=== PATIENT | female | born 1950 | race Caucasian/White ===

== ENCOUNTER 2018-05-13 15:56 | Inpatient (IN) | payer MEDICARE, BC ==
[2018-05-13] MEDS ORDERED: GLUCOSE GEL 15 GRAM TUBE BUCCAL (17:30)
[2018-05-13] MEDS ORDERED: DEXTROSE 50% 50 ML SYRINGE IV ×2 (17:30)
[2018-05-13] MEDS ORDERED: GLUCAGON 1 MG INJ IM (17:30)
[2018-05-13] MEDS ORDERED: GLUCOSE GEL 15 GRAM TUBE PO ×2 (17:30)
[2018-05-13] MEDS: INSULIN ASPART [NOVOLOG] 3 ML PEN SC ×3 (18:11→21:00)
[2018-05-13] MEDS: HYDROmorphONE 0.5 MG/0.5 ML SYG IV (19:45)
[2018-05-13] MEDS: ONDANSETRON 4 MG INJ IV (19:45)
[2018-05-13 20:16] LABS: ALANINE AMINOTRANSFERASE 23 IU/L (13-69); ALKALINE PHOSPHATASE 53 IU/L (42-121); ANION GAP 9 (8-16); ASPARTATE AMINO TRANSFERASE 21 IU/L (15-46); BILIRUBIN,INDIRECT 0.8 mg/dl (0-1.1); BILIRUBIN,TOTAL 0.8 mg/dl (0.2-1.3); BLOOD UREA NITROGEN 14 mg/dl (7-20); CALCIUM 8.2 mg/dl (8.4-10.2); CARBON DIOXIDE 26 mmol/L (21-31); CHLORIDE 109 mmol/L (97-110); CREATININE 0.85 mg/dl (0.44-1.00); GLUCOSE 130 mg/dl (70-220); SODIUM 140 mmol/L (135-144)
[2018-05-13 20:19] LABS: HEMOGLOBIN A1C 8.2 % (0-5.9)
[2018-05-13] MEDS: ATORVASTATIN 40 MG TAB PO (21:17)
[2018-05-14] MEDS: ZOLPIDEM 5 MG TAB PO (00:29)
[2018-05-14] MEDS: ACCU-CHEK XX (01:47)
[2018-05-14 06:33] LABS: WHITE BLOOD COUNT 8.8 10^3/ul (4.8-10.8)
[2018-05-14 06:33] LABS: ADD MAN DIFF? NO; BASOPHILS % 0.5 % (0.0-2.0); EOSINOPHILS # 0.6 10^3/ul (0.0-0.5); EOSINOPHILS % 6.5 % (0.0-7.0); HEMATOCRIT 31.1 % (37.0-47.0); HEMOGLOBIN 9.7 g/dl (12.0-16.0); LYMPHOCYTES # 1.7 10^3/ul (0.8-2.9); LYMPHOCYTES % 18.9 % (15.0-51.0); MEAN CORPUSCULAR HEMOGLOBIN 29.9 pg (29.0-33.0); MEAN CORPUSCULAR HGB CONC 31.2 g/dl (32.0-37.0); MEAN PLATELET VOLUME 9.6 fl (7.4-10.4); MONOCYTES % 11.5 % (0.0-11.0); NEUTROPHIL # 5.4 10^3/ul (1.6-7.5); NEUTROPHILS % 62.1 % (39.0-77.0); PLATELET COUNT 265 10^3/UL (140-415); RED BLOOD COUNT 3.24 10^6/ul (4.20-5.40); RED CELL DISTRIBUTION WIDTH 13.6 % (11.5-14.5)
[2018-05-14 07:12] LABS: ANION GAP 12 (8-16); BLOOD UREA NITROGEN 18 mg/dl (7-20); CALCIUM 8.2 mg/dl (8.4-10.2); CARBON DIOXIDE 26 mmol/L (21-31); CHLORIDE 111 mmol/L (97-110); CREATININE 0.87 mg/dl (0.44-1.00); GLUCOSE 147 mg/dl (70-220); PHOSPHORUS 3.4 mg/dl (2.5-4.9); POTASSIUM 4.2 mmol/L (3.5-5.1); SODIUM 145 mmol/L (135-144)
[2018-05-14] MEDS: INSULIN GLARGINE [LANTus] (100 UNITS/ML) SYG SC ×3 (08:00→21:30)
[2018-05-14] MEDS: INSULIN ASPART [NOVOLOG] 3 ML PEN SC ×7 (08:36→21:00)
[2018-05-14] MEDS: ASPIRIN (EC) 81 MG TAB PO (08:55)
[2018-05-14] MEDS: oxyCODONE (CR) 20 MG TAB [oxyCONTIN] PO ×2 (08:57→21:23)
[2018-05-14] MEDS: DOCUSATE SODIUM 100 MG CAP PO (08:57)
[2018-05-14] MEDS: FENOFIBRATE 48 MG TAB PO (08:58)
[2018-05-14] MEDS: predniSONE 5 MG TAB PO (08:58)
[2018-05-14] MEDS: PANTOPRAZOLE (EC) 40 MG TAB PO (08:58)
[2018-05-14] MEDS: HEPARIN 5,000 UNIT/0.5 ML VIAL SC ×3 (09:00→21:27)
[2018-05-14] MEDS ORDERED: CLOPIDOGREL 75 MG TAB PO (09:00)
[2018-05-14] MEDS: POLYETHYLENE GLYCOL 17 GM PACKET PO (09:00)
[2018-05-14 12:46] LABS: CREATININE,URINE RANDOM 82.71 mg/dl (20-320)
[2018-05-14 12:46] LABS: SODIUM,URINE RANDOM 113 mmol/L (30-90)
[2018-05-14 12:57] LABS: ADD UMIC YES; UR ASCORBIC ACID NEGATIVE (NEGATIVE); UR BACTERIA MODERATE /HPF (NONE SEEN); UR BILIRUBIN (Dip) NEGATIVE (NEGATIVE); UR BLOOD (Dip) 1+ mg/dL (NEGATIVE); UR CLARITY CLOUDY (CLEAR); UR COLOR AMBER (YELLOW); UR GLUCOSE (Dip) NEGATIVE (NEGATIVE); UR KETONES (Dip) NEGATIVE (NEGATIVE); UR LEUKOCYTE ESTERASE (Dip) 3+ Leu/ul (NEGATIVE); UR NITRITE (Dip) NEGATIVE (NEGATIVE); UR RBC 15 /HPF (0-5); UR SPECIFIC GRAVITY (Dip) 1.014 (1.003-1.030); UR TOTAL PROTEIN (Dip) NEGATIVE (NEGATIVE); UR UROBILINOGEN (Dip) 2+ mg/dL (NEGATIVE); UR WBC 144 /HPF (0-5)
[2018-05-14] MEDS: ATORVASTATIN 40 MG TAB PO (21:23)
[2018-05-15] MEDS: ZOLPIDEM 5 MG TAB PO ×2 (00:20→22:30)
[2018-05-15] MEDS: D5W-0.45 NACL + KCL 20 MEQ 1,000 ML IV ×4 (00:21→20:00)
[2018-05-15] MEDS: ACCU-CHEK XX (01:36)
[2018-05-15] MEDS: HEPARIN 5,000 UNIT/0.5 ML VIAL SC ×3 (06:00→22:00)
[2018-05-15 06:52] LABS: ADD MAN DIFF? NO
[2018-05-15 06:54] LABS: WHITE BLOOD COUNT 8.4 10^3/ul (4.8-10.8)
[2018-05-15 06:54] LABS: BASOPHIL # 0.1 10^3/ul (0.0-0.1); BASOPHILS % 0.6 % (0.0-2.0); EOSINOPHILS # 0.7 10^3/ul (0.0-0.5); EOSINOPHILS % 7.9 % (0.0-7.0); HEMATOCRIT 31.4 % (37.0-47.0); LYMPHOCYTES # 1.8 10^3/ul (0.8-2.9); LYMPHOCYTES % 21.3 % (15.0-51.0); MEAN CORPUSCULAR HEMOGLOBIN 30.6 pg (29.0-33.0); MEAN CORPUSCULAR HGB CONC 31.8 g/dl (32.0-37.0); MEAN PLATELET VOLUME 9.6 fl (7.4-10.4); MONOCYTE # 0.8 10^3/ul (0.3-0.9); MONOCYTES % 9.8 % (0.0-11.0); NEUTROPHILS % 59.9 % (39.0-77.0); PLATELET COUNT 281 10^3/UL (140-415); RED BLOOD COUNT 3.27 10^6/ul (4.20-5.40); RED CELL DISTRIBUTION WIDTH 13.5 % (11.5-14.5)
[2018-05-15 07:29] LABS: ANION GAP 10 (8-16); BLOOD UREA NITROGEN 21 mg/dl (7-20); CALCIUM 8.5 mg/dl (8.4-10.2); CARBON DIOXIDE 28 mmol/L (21-31); CHLORIDE 108 mmol/L (97-110); CREATININE 0.89 mg/dl (0.44-1.00); GLUCOSE 150 mg/dl (70-220); MAGNESIUM 1.9 mg/dl (1.7-2.5); PHOSPHORUS 3.3 mg/dl (2.5-4.9); POTASSIUM 4.4 mmol/L (3.5-5.1); SODIUM 142 mmol/L (135-144)
[2018-05-15] MEDS: INSULIN ASPART [NOVOLOG] 3 ML PEN SC ×7 (08:00→21:21)
[2018-05-15] MEDS: oxyCODONE (CR) 20 MG TAB [oxyCONTIN] PO ×3 (08:53→21:12)
[2018-05-15] MEDS: POLYETHYLENE GLYCOL 17 GM PACKET PO (08:54)
[2018-05-15] MEDS: FENOFIBRATE 48 MG TAB PO (08:54)
[2018-05-15] MEDS: DOCUSATE SODIUM 100 MG CAP PO (08:54)
[2018-05-15] MEDS: PANTOPRAZOLE (EC) 40 MG TAB PO ×2 (08:54→10:02)
[2018-05-15] MEDS: predniSONE 5 MG TAB PO ×2 (08:54→10:02)
[2018-05-15] MEDS: ASPIRIN (EC) 81 MG TAB PO (08:54)
[2018-05-15] MEDS: LUBIPROSTONE 24 MCG CAP PO ×2 (08:54→21:12)
[2018-05-15 10:59] LABS: INR 0.98; PROTIME 13.1 Sec (11.9-14.9)
[2018-05-15] MEDS: HYDROCORTISONE 100 MG INJ IV ×2 (11:45→21:10)
[2018-05-15 16:17] LABS: CREATININE, RANDOM URINE 74 mg/dL (20-320); MICROALBUMIN 5.8 mg/dL; MICROALBUMIN/CREATININE RATIO 78 (<30)
[2018-05-15] MEDS: ATORVASTATIN 40 MG TAB PO (21:11)
[2018-05-15] MEDS: INSULIN GLARGINE [LANTus] (100 UNITS/ML) SYG SC (21:20)
[2018-05-16] MEDS: BISACODYL 10 MG SUPP PR (00:44)
[2018-05-16] MEDS: ACCU-CHEK XX (01:54)
[2018-05-16 05:58] LABS: ADD MAN DIFF? NO
[2018-05-16] MEDS: D5W-0.45 NACL + KCL 20 MEQ 1,000 ML IV ×2 (06:00→16:00)
[2018-05-16] MEDS: HEPARIN 5,000 UNIT/0.5 ML VIAL SC ×3 (06:00→21:39)
[2018-05-16 06:22] LABS: WHITE BLOOD COUNT 10.7 10^3/ul (4.8-10.8)
[2018-05-16 06:22] LABS: BASOPHILS % 0.3 % (0.0-2.0); EOSINOPHILS % 0.4 % (0.0-7.0); HEMATOCRIT 28.6 % (37.0-47.0); HEMOGLOBIN 9.2 g/dl (12.0-16.0); LYMPHOCYTES # 1.2 10^3/ul (0.8-2.9); LYMPHOCYTES % 11.6 % (15.0-51.0); MEAN CORPUSCULAR HGB CONC 32.2 g/dl (32.0-37.0); MEAN CORPUSCULAR VOLUME 93.2 fl (82.0-101.0); MEAN PLATELET VOLUME 9.7 fl (7.4-10.4); MONOCYTE # 0.9 10^3/ul (0.3-0.9); MONOCYTES % 8.2 % (0.0-11.0); NEUTROPHIL # 8.5 10^3/ul (1.6-7.5); PLATELET COUNT 292 10^3/UL (140-415); RED BLOOD COUNT 3.07 10^6/ul (4.20-5.40); RED CELL DISTRIBUTION WIDTH 13.2 % (11.5-14.5)
[2018-05-16] MEDS: HYDROCORTISONE 100 MG INJ IV ×3 (06:30→21:45)
[2018-05-16 06:36] LABS: INR 1.07; PT RATIO 1.1
[2018-05-16 06:39] LABS: ALANINE AMINOTRANSFERASE 26 IU/L (13-69); ALBUMIN 2.5 g/dl (3.3-4.9); ALBUMIN/GLOBULIN RATIO 0.92; ALKALINE PHOSPHATASE 51 IU/L (42-121); ANION GAP 13 (8-16); ASPARTATE AMINO TRANSFERASE 18 IU/L (15-46); BILIRUBIN,INDIRECT 0.8 mg/dl (0-1.1); BILIRUBIN,TOTAL 0.8 mg/dl (0.2-1.3); BLOOD UREA NITROGEN 19 mg/dl (7-20); CALCIUM 8.6 mg/dl (8.4-10.2); CARBON DIOXIDE 25 mmol/L (21-31); CHLORIDE 106 mmol/L (97-110); CHOLESTEROL 117 mg/dl (100-200); GLUCOSE 286 mg/dl (70-220); HDL CHOLESTEROL 29 mg/dl (33-92); LDL CHOLESTEROL,CALCULATED 64 mg/dl; POTASSIUM 4.5 mmol/L (3.5-5.1); SODIUM 139 mmol/L (135-144); TOTAL PROTEIN 5.2 g/dl (6.1-8.1); TRIGLYCERIDES 120 mg/dl (0-149)
[2018-05-16 07:04] LABS: ANION GAP 10 (8-16); BLOOD UREA NITROGEN 19 mg/dl (7-20); CALCIUM 8.6 mg/dl (8.4-10.2); CARBON DIOXIDE 24 mmol/L (21-31); CHLORIDE 106 mmol/L (97-110); CREATININE 0.76 mg/dl (0.44-1.00); GLUCOSE 294 mg/dl (70-220); MAGNESIUM 1.7 mg/dl (1.7-2.5); PHOSPHORUS 3.5 mg/dl (2.5-4.9); POTASSIUM 4.4 mmol/L (3.5-5.1); SODIUM 136 mmol/L (135-144)
[2018-05-16] MEDS ORDERED: PROPOFOL 20 ML (07:39)
[2018-05-16] MEDS ORDERED: LIDOCAINE 2% (SDV) 5 ML INJ (07:39)
[2018-05-16] MEDS: SOD CHLORIDE 0.9% 1,000 ML IV ×2 (07:41→17:09)
[2018-05-16] MEDS ORDERED: BUPIVACAINE 0.75%/DEXT (SPINAL) 2 ML INJ (07:51)
[2018-05-16] MEDS: INSULIN ASPART [NOVOLOG] 3 ML PEN SC ×8 (08:00→20:54)
[2018-05-16] MEDS ORDERED: NA PHOSPHATE/BIPHOS 133 ML ENEMA PR (08:00)
[2018-05-16] MEDS: DOCUSATE SODIUM 100 MG CAP PO (08:00)
[2018-05-16] MEDS ORDERED: MAGNESIUM HYDROXIDE 30ML CUP PO (08:00)
[2018-05-16] MEDS ORDERED: BETHANECHOL 25 MG TAB PO (08:00)
[2018-05-16] MEDS ORDERED: DIPHENHYDRAMINE 50 MG INJ IV (08:00)
[2018-05-16] MEDS ORDERED: CEFAZOLIN 1 GM/50 ML (PMX) 50 ML IVPB (08:00)
[2018-05-16] MEDS ORDERED: NALOXONE (0.4 MG/ML) INJ IV ×2 (08:00→14:00)
[2018-05-16] MEDS ORDERED: oxyCODONE 5 MG TAB PO ×3 (08:00)
[2018-05-16] MEDS ORDERED: HYDROCORTISONE 100 MG INJ (08:02)
[2018-05-16] MEDS ORDERED: EPHEDrine SULFATE 50 MG/5 ML SYG (08:23)
[2018-05-16] MEDS ORDERED: CEFAZOLIN 1 GM INJ ×3 (08:23→11:06)
[2018-05-16] MEDS: TRANEXAMIC ACID 1,000 MG in DEXTROSE 5% 100 ML IV ×2 (08:57→13:25)
[2018-05-16] MEDS: BACITRACIN 50000 UNITS INJ ×2 (08:59→13:21)
[2018-05-16] MEDS ORDERED: HYDROmorphONE 1 MG/5 ML IV SYRINGE IV (09:00)
[2018-05-16] MEDS ORDERED: EPHEDrine SULFATE 50 MG/5 ML SYG IV (09:00)
[2018-05-16] MEDS: LUBIPROSTONE 24 MCG CAP PO ×2 (09:00→20:25)
[2018-05-16] MEDS: FENOFIBRATE 48 MG TAB PO (09:00)
[2018-05-16] MEDS: predniSONE 5 MG TAB PO (09:00)
[2018-05-16] MEDS ORDERED: LABETALOL HCL 20MG INJ IV (09:00)
[2018-05-16] MEDS: POLYMYXIN B 500000 UNIT INJ ×2 (09:00→13:22)
[2018-05-16] MEDS: GABAPENTIN 100 MG CAP PO ×2 (09:00→20:25)
[2018-05-16] MEDS ORDERED: ONDANSETRON 4 MG INJ IV (09:00)
[2018-05-16] MEDS ORDERED: hydrALAzine 20 MG INJ IV (09:00)
[2018-05-16] MEDS: oxyCODONE (CR) 20 MG TAB [oxyCONTIN] PO ×3 (09:00→20:27)
[2018-05-16] MEDS: POLYETHYLENE GLYCOL 17 GM PACKET PO (09:00)
[2018-05-16] MEDS ORDERED: METOCLOPRAMIDE 10 MG INJ IV (09:00)
[2018-05-16] MEDS: ROPIVACAINE 0.2% 60 ML, morphine SULFATE (PF) 4 MG, CLONIDINE 100 MCG, KETOROLAC 30 MG,... INJ (09:02)
[2018-05-16] MEDS ORDERED: TOBRAMYCIN 1.2 GM POWDER ×2 (10:22→10:38)
[2018-05-16] MEDS ORDERED: ONDANSETRON 4 MG INJ (10:51)
[2018-05-16] MEDS: ASPIRIN (EC) 325 MG TAB PO ×2 (12:00→20:26)
[2018-05-16] MEDS ORDERED: KETOROLAC 30 MG INJ (12:30)
[2018-05-16] MEDS: MIDAZOLAM 1 MG/ML 2 ML INJ IV (12:36)
[2018-05-16] MEDS: HYDROmorphONE 1 MG/5 ML IV SYRINGE IV ×4 (12:40→13:41)
[2018-05-16] MEDS ORDERED: FENTAnyl 50 MCG/ML VIAL (12:46)
[2018-05-16] MEDS: DIPHENHYDRAMINE 50 MG INJ IV ×2 (13:00→21:29)
[2018-05-16] MEDS: KETOROLAC 30 MG INJ IV (13:34)
[2018-05-16] MEDS ORDERED: HYDROmorphONE 0.2 MG/ML PCA (13:52)
[2018-05-16] MEDS: ONDANSETRON 4 MG INJ IV ×3 (14:00→21:28)
[2018-05-16] MEDS ORDERED: FENTAnyl 50 MCG/ML VIAL IV (14:00)
[2018-05-16] MEDS: HYDROmorphONE 0.2 MG/ML PCA IV ×2 (14:09→18:33)
[2018-05-16] MEDS: FENTAnyl 50 MCG/ML VIAL IV ×4 (14:53→15:23)
[2018-05-16] MEDS ORDERED: ROPIVACAINE 0.5 % 30 ML VIAL (15:07)
[2018-05-16] MEDS ORDERED: LABETALOL HCL 20MG INJ (15:49)
[2018-05-16] MEDS: LABETALOL HCL 20MG INJ IV (15:52)
[2018-05-16] MEDS ORDERED: HYDROmorphONE 0.2 MG/ML PCA IV (17:00)
[2018-05-16] MEDS: HYDROmorphONE 2 MG/ML SYG IV (19:20)
[2018-05-16] MEDS: ACETAMINOPHEN 1000MG/100ML IV 100 ML IVPB (20:05)
[2018-05-16] MEDS: predniSONE 20 MG TAB PO (20:06)
[2018-05-16] MEDS: ATORVASTATIN 40 MG TAB PO (20:26)
[2018-05-16] MEDS: INSULIN GLARGINE [LANTus] (100 UNITS/ML) SYG SC (20:31)
[2018-05-16] MEDS: LORAZEPAM 2 MG INJ IV (21:34)
[2018-05-16] MEDS: CEFAZOLIN 1 GM/50 ML (PMX) 50 ML IVPB (23:15)
[2018-05-17] MEDS: ACCU-CHEK XX (01:02)
[2018-05-17] MEDS: ACETAMINOPHEN 1000MG/100ML IV 100 ML IVPB ×4 (01:31→20:01)
[2018-05-17] MEDS: DIPHENHYDRAMINE 50 MG INJ IV ×6 (01:47→21:00)
[2018-05-17] MEDS: LORAZEPAM 2 MG INJ IV ×6 (01:49→21:00)
[2018-05-17] MEDS: ONDANSETRON 4 MG INJ IV (02:00)
[2018-05-17] MEDS: D5W-0.45 NACL + KCL 20 MEQ 1,000 ML IV ×3 (02:00→21:54)
[2018-05-17] MEDS: SOD CHLORIDE 0.9% 1,000 ML IV ×3 (05:22→21:06)
[2018-05-17] MEDS: HYDROCORTISONE 100 MG INJ IV (05:24)
[2018-05-17] MEDS: HEPARIN 5,000 UNIT/0.5 ML VIAL SC ×3 (05:30→21:52)
[2018-05-17 05:49] LABS: ADD MAN DIFF? NO
[2018-05-17 05:59] LABS: WHITE BLOOD COUNT 10.6 10^3/ul (4.8-10.8)
[2018-05-17 05:59] LABS: ABNORMAL IP MESSAGE 1; BASOPHILS % 0.1 % (0.0-2.0); HEMATOCRIT 25.3 % (37.0-47.0); HEMOGLOBIN 7.9 g/dl (12.0-16.0); LYMPHOCYTES # 0.4 10^3/ul (0.8-2.9); MEAN CORPUSCULAR HEMOGLOBIN 29.9 pg (29.0-33.0); MEAN CORPUSCULAR HGB CONC 31.2 g/dl (32.0-37.0); MEAN CORPUSCULAR VOLUME 95.8 fl (82.0-101.0); MEAN PLATELET VOLUME 9.6 fl (7.4-10.4); MONOCYTE # 0.4 10^3/ul (0.3-0.9); NEUTROPHIL # 9.7 10^3/ul (1.6-7.5); NEUTROPHILS % 91.2 % (39.0-77.0); PLATELET COUNT 256 10^3/UL (140-415); RED BLOOD COUNT 2.64 10^6/ul (4.20-5.40); RED CELL DISTRIBUTION WIDTH 13.7 % (11.5-14.5)
[2018-05-17 06:07] LABS: POSITIVE DIFF @See below
[2018-05-17] MEDS: HYDROmorphONE 0.2 MG/ML PCA IV ×2 (06:10→18:46)
[2018-05-17 06:46] LABS: ANION GAP 12 (8-16); BLOOD UREA NITROGEN 18 mg/dl (7-20); CALCIUM 7.9 mg/dl (8.4-10.2); CARBON DIOXIDE 25 mmol/L (21-31); CHLORIDE 107 mmol/L (97-110); CREATININE 0.79 mg/dl (0.44-1.00); GLUCOSE 177 mg/dl (70-220); POTASSIUM 4.8 mmol/L (3.5-5.1); SODIUM 139 mmol/L (135-144)
[2018-05-17] MEDS: DOCUSATE SODIUM 100 MG CAP PO ×2 (08:22→21:00)
[2018-05-17] MEDS: FENOFIBRATE 48 MG TAB PO (08:22)
[2018-05-17] MEDS: POLYETHYLENE GLYCOL 17 GM PACKET PO (08:22)
[2018-05-17] MEDS: ASPIRIN (EC) 325 MG TAB PO ×2 (08:22→21:00)
[2018-05-17] MEDS: LUBIPROSTONE 24 MCG CAP PO ×2 (08:22→21:00)
[2018-05-17] MEDS: GABAPENTIN 100 MG CAP PO ×2 (08:22→21:00)
[2018-05-17] MEDS: predniSONE 20 MG TAB PO (08:22)
[2018-05-17] MEDS: CEFAZOLIN 1 GM/50 ML (PMX) 50 ML IVPB (08:23)
[2018-05-17] MEDS: INSULIN ASPART [NOVOLOG] 3 ML PEN SC ×7 (08:34→21:00)
[2018-05-17] MEDS: FERROUS FUMARATE (SR) TAB PO ×2 (09:05→21:00)
[2018-05-17] MEDS: oxyCODONE (CR) 20 MG TAB [oxyCONTIN] PO ×3 (09:05→21:00)
[2018-05-17] MEDS: HYDROmorphONE 2 MG/ML SYG IV ×2 (11:29→15:28)
[2018-05-17] MEDS: HYDROmorphONE 1 MG/ML SYG IV (12:23)
[2018-05-17] MEDS: CEFTRIAXONE 1 GM/50 ML (PMX) 50 ML IVPB (15:57)
[2018-05-17] MEDS: INSULIN GLARGINE [LANTus] (100 UNITS/ML) SYG SC (20:57)
[2018-05-17] MEDS: ATORVASTATIN 40 MG TAB PO (21:00)
[2018-05-18] MEDS: DIPHENHYDRAMINE 50 MG INJ IV ×3 (01:00→09:00)
[2018-05-18] MEDS: LORAZEPAM 2 MG INJ IV ×3 (01:00→09:00)
[2018-05-18] MEDS: ACETAMINOPHEN 1000MG/100ML IV 100 ML IVPB ×4 (01:33→18:46)
[2018-05-18] MEDS: ACCU-CHEK XX (02:00)
[2018-05-18] MEDS: PANTOPRAZOLE (EC) 40 MG TAB PO (05:39)
[2018-05-18] MEDS: CEFAZOLIN 1 GM/50 ML (PMX) 50 ML IVPB ×2 (05:39→14:47)
[2018-05-18] MEDS: HEPARIN 5,000 UNIT/0.5 ML VIAL SC ×3 (05:43→21:30)
[2018-05-18 05:47] LABS: ADD MAN DIFF? NO
[2018-05-18] MEDS: SOD CHLORIDE 0.9% 1,000 ML IV ×2 (05:49→21:07)
[2018-05-18] MEDS: HYDROmorphONE 0.2 MG/ML PCA IV ×2 (05:55→21:13)
[2018-05-18 05:56] LABS: WHITE BLOOD COUNT 10.6 10^3/ul (4.8-10.8)
[2018-05-18 05:56] LABS: BASOPHILS % 0.1 % (0.0-2.0); EOSINOPHILS # 0.1 10^3/ul (0.0-0.5); EOSINOPHILS % 0.5 % (0.0-7.0); HEMATOCRIT 24.3 % (37.0-47.0); HEMOGLOBIN 7.3 g/dl (12.0-16.0); LYMPHOCYTES # 1.6 10^3/ul (0.8-2.9); LYMPHOCYTES % 15.1 % (15.0-51.0); MEAN CORPUSCULAR HEMOGLOBIN 29.6 pg (29.0-33.0); MEAN CORPUSCULAR VOLUME 98.4 fl (82.0-101.0); MEAN PLATELET VOLUME 9.5 fl (7.4-10.4); MONOCYTES % 9.6 % (0.0-11.0); NEUTROPHIL # 7.9 10^3/ul (1.6-7.5); NEUTROPHILS % 74.3 % (39.0-77.0); PLATELET COUNT 280 10^3/UL (140-415); RED BLOOD COUNT 2.47 10^6/ul (4.20-5.40); RED CELL DISTRIBUTION WIDTH 13.6 % (11.5-14.5)
[2018-05-18 06:12] LABS: MAGNESIUM 2.1 mg/dl (1.7-2.5)
[2018-05-18 06:12] LABS: PHOSPHORUS 3.3 mg/dl (2.5-4.9)
[2018-05-18 06:22] LABS: ANION GAP 9 (8-16); BLOOD UREA NITROGEN 19 mg/dl (7-20); CARBON DIOXIDE 25 mmol/L (21-31); CHLORIDE 111 mmol/L (97-110); CREATININE 0.76 mg/dl (0.44-1.00); GLUCOSE 77 mg/dl (70-220); POTASSIUM 3.9 mmol/L (3.5-5.1); SODIUM 141 mmol/L (135-144)
[2018-05-18] MEDS: INSULIN ASPART [NOVOLOG] 3 ML PEN SC ×7 (07:50→21:13)
[2018-05-18] MEDS: D5W-0.45 NACL + KCL 20 MEQ 1,000 ML IV ×2 (08:00→17:13)
[2018-05-18] MEDS: LUBIPROSTONE 24 MCG CAP PO ×2 (10:57→21:06)
[2018-05-18] MEDS: FERROUS FUMARATE (SR) TAB PO ×2 (10:58→21:06)
[2018-05-18] MEDS: ASPIRIN (EC) 325 MG TAB PO ×2 (10:59→21:06)
[2018-05-18] MEDS: predniSONE 20 MG TAB PO (10:59)
[2018-05-18] MEDS: DOCUSATE SODIUM 100 MG CAP PO ×2 (10:59→21:06)
[2018-05-18] MEDS: GABAPENTIN 100 MG CAP PO ×2 (10:59→21:06)
[2018-05-18] MEDS: FENOFIBRATE 48 MG TAB PO (11:03)
[2018-05-18] MEDS: POLYETHYLENE GLYCOL 17 GM PACKET PO (11:03)
[2018-05-18] MEDS: oxyCODONE (CR) 20 MG TAB [oxyCONTIN] PO ×3 (11:05→16:41)
[2018-05-18] MEDS ORDERED: DIPHENHYDRAMINE 50 MG INJ IV (13:30)
[2018-05-18] MEDS: CEFTRIAXONE 1 GM/50 ML (PMX) 50 ML IVPB (16:59)
[2018-05-18] MEDS: ATORVASTATIN 40 MG TAB PO (21:06)
[2018-05-18] MEDS: INSULIN GLARGINE [LANTus] (100 UNITS/ML) SYG SC (21:13)
[2018-05-19] MEDS: HYDROmorphONE 2 MG/ML SYG IV (00:36)
[2018-05-19] MEDS: ACETAMINOPHEN 1000MG/100ML IV 100 ML IVPB ×4 (00:36→20:40)
[2018-05-19] MEDS: ACCU-CHEK XX (02:00)
[2018-05-19] MEDS: D5W-0.45 NACL + KCL 20 MEQ 1,000 ML IV ×2 (04:00→14:00)
[2018-05-19 05:12] LABS: ADD MAN DIFF? NO
[2018-05-19 05:18] LABS: WHITE BLOOD COUNT 9.1 10^3/ul (4.8-10.8)
[2018-05-19 05:18] LABS: BASOPHILS % 0.2 % (0.0-2.0); EOSINOPHILS # 0.1 10^3/ul (0.0-0.5); EOSINOPHILS % 1.2 % (0.0-7.0); LYMPHOCYTES # 1.4 10^3/ul (0.8-2.9); LYMPHOCYTES % 15.6 % (15.0-51.0); MEAN CORPUSCULAR HEMOGLOBIN 29.5 pg (29.0-33.0); MEAN CORPUSCULAR HGB CONC 30.4 g/dl (32.0-37.0); MEAN PLATELET VOLUME 9.4 fl (7.4-10.4); MONOCYTE # 0.9 10^3/ul (0.3-0.9); MONOCYTES % 9.6 % (0.0-11.0); NEUTROPHIL # 6.7 10^3/ul (1.6-7.5); PLATELET COUNT 264 10^3/UL (140-415); RED BLOOD COUNT 2.37 10^6/ul (4.20-5.40); RED CELL DISTRIBUTION WIDTH 13.7 % (11.5-14.5)
[2018-05-19 05:40] LABS: IRON 26 ug/dl (35-150)
[2018-05-19 05:44] LABS: ANION GAP 7 (8-16); BLOOD UREA NITROGEN 16 mg/dl (7-20); CALCIUM 7.9 mg/dl (8.4-10.2); CARBON DIOXIDE 28 mmol/L (21-31); CHLORIDE 110 mmol/L (97-110); CREATININE 0.71 mg/dl (0.44-1.00); GLUCOSE 205 mg/dl (70-220); SODIUM 141 mmol/L (135-144)
[2018-05-19 05:49] LABS: % IRON SATURATION 12 % SAT (22-52); TOTAL IRON BINDING CAPACITY 221 ug/dl (241-421)
[2018-05-19] MEDS: PANTOPRAZOLE (EC) 40 MG TAB PO (06:05)
[2018-05-19] MEDS: HEPARIN 5,000 UNIT/0.5 ML VIAL SC ×3 (06:11→21:05)
[2018-05-19 06:32] LABS: PHOSPHORUS 2.4 mg/dl (2.5-4.9)
[2018-05-19 06:32] LABS: MAGNESIUM 1.9 mg/dl (1.7-2.5)
[2018-05-19] MEDS: FERROUS FUMARATE (SR) TAB PO ×2 (08:10→20:45)
[2018-05-19] MEDS: ASPIRIN (EC) 325 MG TAB PO ×2 (08:10→20:45)
[2018-05-19] MEDS: DOCUSATE SODIUM 100 MG CAP PO ×2 (08:11→20:44)
[2018-05-19] MEDS: GABAPENTIN 100 MG CAP PO ×2 (08:11→20:45)
[2018-05-19] MEDS: LUBIPROSTONE 24 MCG CAP PO ×2 (08:11→20:44)
[2018-05-19] MEDS: predniSONE 20 MG TAB PO (08:12)
[2018-05-19] MEDS: oxyCODONE (CR) 20 MG TAB [oxyCONTIN] PO ×3 (08:12→20:45)
[2018-05-19] MEDS: POLYETHYLENE GLYCOL 17 GM PACKET PO (08:13)
[2018-05-19] MEDS: FENOFIBRATE 48 MG TAB PO (08:13)
[2018-05-19] MEDS: INSULIN ASPART [NOVOLOG] 3 ML PEN SC ×7 (08:49→21:00)
[2018-05-19] MEDS: SOD CHLORIDE 0.9% 1,000 ML IV (10:43)
[2018-05-19] MEDS: CEFTRIAXONE 1 GM/50 ML (PMX) 50 ML IVPB (15:17)
[2018-05-19] MEDS: HYDROmorphONE 0.2 MG/ML PCA IV (17:51)
[2018-05-19] MEDS: ATORVASTATIN 40 MG TAB PO (20:45)
[2018-05-19] MEDS: INSULIN GLARGINE [LANTus] (100 UNITS/ML) SYG SC (21:04)
[2018-05-19] MEDS: LORAZEPAM 2 MG INJ IV (21:57)
[2018-05-20] MEDS: SOD CHLORIDE 0.9% 1,000 ML IV ×2 (00:47→13:32)
[2018-05-20] MEDS: ACETAMINOPHEN 1000MG/100ML IV 100 ML IVPB ×4 (00:47→19:51)
[2018-05-20] MEDS: ACCU-CHEK XX (02:00)
[2018-05-20 05:29] LABS: ADD MAN DIFF? NO; BASOPHILS % 0.3 % (0.0-2.0); EOSINOPHILS # 0.4 10^3/ul (0.0-0.5); EOSINOPHILS % 4.1 % (0.0-7.0); HEMATOCRIT 24.3 % (37.0-47.0); HEMOGLOBIN 7.4 g/dl (12.0-16.0); LYMPHOCYTES # 2.6 10^3/ul (0.8-2.9); LYMPHOCYTES % 26.5 % (15.0-51.0); MEAN CORPUSCULAR HEMOGLOBIN 29.7 pg (29.0-33.0); MEAN CORPUSCULAR HGB CONC 30.5 g/dl (32.0-37.0); MEAN CORPUSCULAR VOLUME 97.6 fl (82.0-101.0); MEAN PLATELET VOLUME 9.3 fl (7.4-10.4); MONOCYTE # 0.9 10^3/ul (0.3-0.9); MONOCYTES % 9.2 % (0.0-11.0); NEUTROPHIL # 5.7 10^3/ul (1.6-7.5); NEUTROPHILS % 59.2 % (39.0-77.0); PLATELET COUNT 301 10^3/UL (140-415); RED BLOOD COUNT 2.49 10^6/ul (4.20-5.40); RED CELL DISTRIBUTION WIDTH 13.8 % (11.5-14.5)
[2018-05-20 05:29] LABS: WHITE BLOOD COUNT 9.7 10^3/ul (4.8-10.8)
[2018-05-20] MEDS: PANTOPRAZOLE (EC) 40 MG TAB PO (05:45)
[2018-05-20] MEDS: HEPARIN 5,000 UNIT/0.5 ML VIAL SC ×3 (05:46→21:29)
[2018-05-20 06:09] LABS: ANION GAP 4 (8-16); BLOOD UREA NITROGEN 15 mg/dl (7-20); CALCIUM 7.7 mg/dl (8.4-10.2); CARBON DIOXIDE 32 mmol/L (21-31); CHLORIDE 110 mmol/L (97-110); CREATININE 0.66 mg/dl (0.44-1.00); GLUCOSE 85 mg/dl (70-220); SODIUM 142 mmol/L (135-144)
[2018-05-20] MEDS: INSULIN ASPART [NOVOLOG] 3 ML PEN SC ×7 (08:54→21:00)
[2018-05-20] MEDS: FERROUS FUMARATE (SR) TAB PO ×2 (08:55→21:19)
[2018-05-20] MEDS: POLYETHYLENE GLYCOL 17 GM PACKET PO (08:55)
[2018-05-20] MEDS: predniSONE 20 MG TAB PO (08:56)
[2018-05-20] MEDS: oxyCODONE (CR) 20 MG TAB [oxyCONTIN] PO ×3 (08:56→21:22)
[2018-05-20] MEDS: ASPIRIN (EC) 325 MG TAB PO (08:57)
[2018-05-20] MEDS: GABAPENTIN 100 MG CAP PO ×2 (08:57→21:19)
[2018-05-20] MEDS: FENOFIBRATE 48 MG TAB PO (08:57)
[2018-05-20] MEDS: LUBIPROSTONE 24 MCG CAP PO ×2 (09:05→21:19)
[2018-05-20] MEDS: D5W-0.45 NACL + KCL 20 MEQ 1,000 ML IV ×3 (10:00→20:00)
[2018-05-20] MEDS: LORAZEPAM 2 MG INJ IV ×2 (13:08→22:21)
[2018-05-20] MEDS: HYDROmorphONE 0.2 MG/ML PCA IV (13:34)
[2018-05-20] MEDS: CEFTRIAXONE 1 GM/50 ML (PMX) 50 ML IVPB (16:58)
[2018-05-20] MEDS: ATORVASTATIN 40 MG TAB PO (21:19)
[2018-05-20] MEDS: INSULIN GLARGINE [LANTus] (100 UNITS/ML) SYG SC (21:27)
[2018-05-21] MEDS: ACETAMINOPHEN 1000MG/100ML IV 100 ML IVPB ×4 (01:29→21:09)
[2018-05-21] MEDS: SOD CHLORIDE 0.9% 1,000 ML IV ×2 (01:33→14:37)
[2018-05-21] MEDS: ACCU-CHEK XX (02:00)
[2018-05-21] MEDS: LORAZEPAM 2 MG INJ IV ×3 (03:26→22:08)
[2018-05-21 05:06] LABS: ADD MAN DIFF? NO
[2018-05-21 05:17] LABS: WHITE BLOOD COUNT 9.6 10^3/ul (4.8-10.8)
[2018-05-21 05:17] LABS: BASOPHILS % 0.3 % (0.0-2.0); EOSINOPHILS # 0.3 10^3/ul (0.0-0.5); EOSINOPHILS % 2.7 % (0.0-7.0); HEMATOCRIT 25.6 % (37.0-47.0); HEMOGLOBIN 7.8 g/dl (12.0-16.0); LYMPHOCYTES # 2.2 10^3/ul (0.8-2.9); LYMPHOCYTES % 23.3 % (15.0-51.0); MEAN CORPUSCULAR HEMOGLOBIN 29.5 pg (29.0-33.0); MEAN CORPUSCULAR HGB CONC 30.5 g/dl (32.0-37.0); MEAN PLATELET VOLUME 8.9 fl (7.4-10.4); MONOCYTE # 0.7 10^3/ul (0.3-0.9); MONOCYTES % 7.6 % (0.0-11.0); NEUTROPHIL # 6.3 10^3/ul (1.6-7.5); NEUTROPHILS % 65.5 % (39.0-77.0); PLATELET COUNT 336 10^3/UL (140-415); RED BLOOD COUNT 2.64 10^6/ul (4.20-5.40); RED CELL DISTRIBUTION WIDTH 13.6 % (11.5-14.5)
[2018-05-21 05:40] LABS: ANION GAP 6 (8-16); BLOOD UREA NITROGEN 14 mg/dl (7-20); CALCIUM 8.1 mg/dl (8.4-10.2); CARBON DIOXIDE 29 mmol/L (21-31); CHLORIDE 108 mmol/L (97-110); GLUCOSE 107 mg/dl (70-220); POTASSIUM 3.9 mmol/L (3.5-5.1); SODIUM 139 mmol/L (135-144)
[2018-05-21] MEDS: D5W-0.45 NACL + KCL 20 MEQ 1,000 ML IV ×2 (06:00→16:00)
[2018-05-21] MEDS: HEPARIN 5,000 UNIT/0.5 ML VIAL SC ×3 (06:00→21:14)
[2018-05-21] MEDS: PANTOPRAZOLE (EC) 40 MG TAB PO (06:31)
[2018-05-21] MEDS: SENNA/DOCUSATE NA (8.6MG/50MG) TAB PO (06:31)
[2018-05-21] MEDS: INSULIN ASPART [NOVOLOG] 3 ML PEN SC ×7 (07:50→21:00)
[2018-05-21] MEDS: LUBIPROSTONE 24 MCG CAP PO ×2 (08:25→21:09)
[2018-05-21] MEDS: CLOPIDOGREL 75 MG TAB PO (08:26)
[2018-05-21] MEDS: predniSONE 20 MG TAB PO (08:26)
[2018-05-21] MEDS: GABAPENTIN 100 MG CAP PO ×2 (08:26→21:11)
[2018-05-21] MEDS: oxyCODONE (CR) 20 MG TAB [oxyCONTIN] PO ×3 (08:26→21:11)
[2018-05-21] MEDS: ASPIRIN 81 MG TAB PO (08:27)
[2018-05-21] MEDS: FENOFIBRATE 48 MG TAB PO (08:27)
[2018-05-21] MEDS: FERROUS FUMARATE (SR) TAB PO ×2 (08:27→21:10)
[2018-05-21] MEDS: POLYETHYLENE GLYCOL 17 GM PACKET PO (08:28)
[2018-05-21] MEDS: HYDROmorphONE 0.2 MG/ML PCA IV (09:55)
[2018-05-21] MEDS: HYDROmorphONE 2 MG/ML SYG IV ×2 (10:02→13:00)
[2018-05-21] MEDS: CEFTRIAXONE 1 GM/50 ML (PMX) 50 ML IVPB (16:25)
[2018-05-21] MEDS: ATORVASTATIN 40 MG TAB PO (21:10)
[2018-05-21] MEDS: INSULIN GLARGINE [LANTus] (100 UNITS/ML) SYG SC (21:13)
[2018-05-22] MEDS: SOD CHLORIDE 0.9% 1,000 ML IV ×2 (01:11→02:36)
[2018-05-22] MEDS: ACCU-CHEK XX (02:00)
[2018-05-22] MEDS: D5W-0.45 NACL + KCL 20 MEQ 1,000 ML IV (02:00)
[2018-05-22] MEDS: ACETAMINOPHEN 1000MG/100ML IV 100 ML IVPB ×4 (02:35→20:15)
[2018-05-22] MEDS: BISACODYL 10 MG SUPP PR (02:42)
[2018-05-22] MEDS: PANTOPRAZOLE (EC) 40 MG TAB PO (05:12)
[2018-05-22] MEDS: HEPARIN 5,000 UNIT/0.5 ML VIAL SC ×3 (05:13→20:32)
[2018-05-22] MEDS: LORAZEPAM 2 MG INJ IV (05:17)
[2018-05-22 05:41] LABS: ADD MAN DIFF? NO
[2018-05-22 05:46] LABS: BASOPHILS % 0.3 % (0.0-2.0); EOSINOPHILS # 0.3 10^3/ul (0.0-0.5); EOSINOPHILS % 2.8 % (0.0-7.0); HEMATOCRIT 27.3 % (37.0-47.0); HEMOGLOBIN 8.5 g/dl (12.0-16.0); LYMPHOCYTES # 2.5 10^3/ul (0.8-2.9); LYMPHOCYTES % 26.2 % (15.0-51.0); MEAN CORPUSCULAR HEMOGLOBIN 29.6 pg (29.0-33.0); MEAN CORPUSCULAR HGB CONC 31.1 g/dl (32.0-37.0); MEAN CORPUSCULAR VOLUME 95.1 fl (82.0-101.0); MEAN PLATELET VOLUME 8.9 fl (7.4-10.4); MONOCYTE # 0.7 10^3/ul (0.3-0.9); MONOCYTES % 7.3 % (0.0-11.0); NEUTROPHILS % 62.6 % (39.0-77.0); PLATELET COUNT 383 10^3/UL (140-415); RED BLOOD COUNT 2.87 10^6/ul (4.20-5.40); RED CELL DISTRIBUTION WIDTH 13.9 % (11.5-14.5)
[2018-05-22 05:46] LABS: WHITE BLOOD COUNT 9.6 10^3/ul (4.8-10.8)
[2018-05-22] MEDS: HYDROmorphONE 0.2 MG/ML PCA IV (06:18)
[2018-05-22 06:20] LABS: ANION GAP 8 (8-16); BLOOD UREA NITROGEN 11 mg/dl (7-20); CALCIUM 8.2 mg/dl (8.4-10.2); CARBON DIOXIDE 31 mmol/L (21-31); CHLORIDE 105 mmol/L (97-110); GLUCOSE 116 mg/dl (70-220); POTASSIUM 3.6 mmol/L (3.5-5.1); SODIUM 140 mmol/L (135-144)
[2018-05-22] MEDS: HYDROmorphONE 2 MG/ML SYG IV ×4 (07:41→22:16)
[2018-05-22] MEDS: INSULIN ASPART [NOVOLOG] 3 ML PEN SC ×7 (07:50→20:31)
[2018-05-22] MEDS: CLOPIDOGREL 75 MG TAB PO (10:09)
[2018-05-22] MEDS: oxyCODONE (CR) 20 MG TAB [oxyCONTIN] PO ×3 (10:10→20:25)
[2018-05-22] MEDS: FERROUS FUMARATE (SR) TAB PO ×2 (10:10→20:23)
[2018-05-22] MEDS: GABAPENTIN 100 MG CAP PO ×2 (10:10→20:25)
[2018-05-22] MEDS: ASPIRIN 81 MG TAB PO (10:10)
[2018-05-22] MEDS: LUBIPROSTONE 24 MCG CAP PO ×2 (10:11→20:25)
[2018-05-22] MEDS: predniSONE 10 MG TAB PO (10:12)
[2018-05-22] MEDS: POLYETHYLENE GLYCOL 17 GM PACKET PO (10:13)
[2018-05-22] MEDS: FENOFIBRATE 48 MG TAB PO (10:57)
[2018-05-22] MEDS: BALSAM PERU/CASTOR OIL 60 GM TUBE TOP (11:30)
[2018-05-22] MEDS: CEFTRIAXONE 1 GM/50 ML (PMX) 50 ML IVPB (15:14)
[2018-05-22] MEDS: ATORVASTATIN 40 MG TAB PO (20:25)
[2018-05-22] MEDS: INSULIN GLARGINE [LANTus] (100 UNITS/ML) SYG SC (20:30)
[2018-05-23] MEDS: ACETAMINOPHEN 1000MG/100ML IV 100 ML IVPB ×4 (00:34→18:22)
[2018-05-23] MEDS: HYDROmorphONE 0.2 MG/ML PCA IV (00:37)
[2018-05-23] MEDS: ACCU-CHEK XX (02:00)
[2018-05-23] MEDS: HYDROmorphONE 2 MG/ML SYG IV ×5 (03:20→21:42)
[2018-05-23] MEDS: HEPARIN 5,000 UNIT/0.5 ML VIAL SC ×3 (05:13→22:00)
[2018-05-23 05:17] LABS: ADD MAN DIFF? NO
[2018-05-23 05:25] LABS: BASOPHILS % 0.4 % (0.0-2.0); EOSINOPHILS # 0.3 10^3/ul (0.0-0.5); EOSINOPHILS % 3.1 % (0.0-7.0); HEMATOCRIT 29.5 % (37.0-47.0); LYMPHOCYTES % 21.1 % (15.0-51.0); MEAN CORPUSCULAR HEMOGLOBIN 29.9 pg (29.0-33.0); MEAN CORPUSCULAR HGB CONC 30.5 g/dl (32.0-37.0); MEAN PLATELET VOLUME 8.8 fl (7.4-10.4); MONOCYTE # 0.9 10^3/ul (0.3-0.9); NEUTROPHIL # 6.3 10^3/ul (1.6-7.5); NEUTROPHILS % 65.8 % (39.0-77.0); PLATELET COUNT 405 10^3/UL (140-415); RED BLOOD COUNT 3.01 10^6/ul (4.20-5.40); RED CELL DISTRIBUTION WIDTH 14.1 % (11.5-14.5)
[2018-05-23 05:25] LABS: WHITE BLOOD COUNT 9.6 10^3/ul (4.8-10.8)
[2018-05-23 05:57] LABS: ANION GAP 8 (8-16); BLOOD UREA NITROGEN 14 mg/dl (7-20); CALCIUM 8.3 mg/dl (8.4-10.2); CARBON DIOXIDE 32 mmol/L (21-31); CHLORIDE 104 mmol/L (97-110); CREATININE 0.59 mg/dl (0.44-1.00); GLUCOSE 110 mg/dl (70-220); POTASSIUM 4.2 mmol/L (3.5-5.1); SODIUM 140 mmol/L (135-144)
[2018-05-23] MEDS: PANTOPRAZOLE (EC) 40 MG TAB PO (06:24)
[2018-05-23] MEDS: INSULIN ASPART [NOVOLOG] 3 ML PEN SC ×7 (07:50→21:00)
[2018-05-23] MEDS: POLYETHYLENE GLYCOL 17 GM PACKET PO (08:59)
[2018-05-23] MEDS: LUBIPROSTONE 24 MCG CAP PO ×2 (09:00→21:00)
[2018-05-23] MEDS ORDERED: predniSONE 10 MG TAB PO (09:00)
[2018-05-23] MEDS: ASPIRIN 81 MG TAB PO (09:14)
[2018-05-23] MEDS: FERROUS FUMARATE (SR) TAB PO ×2 (09:15→21:04)
[2018-05-23] MEDS: CLOPIDOGREL 75 MG TAB PO (09:15)
[2018-05-23] MEDS: predniSONE 10 MG TAB PO (09:16)
[2018-05-23] MEDS: GABAPENTIN 100 MG CAP PO ×2 (09:16→21:05)
[2018-05-23] MEDS: FENOFIBRATE 48 MG TAB PO (09:16)
[2018-05-23] MEDS: oxyCODONE (CR) 20 MG TAB [oxyCONTIN] PO ×3 (09:17→21:04)
[2018-05-23] MEDS: BALSAM PERU/CASTOR OIL 60 GM TUBE TOP (09:18)
[2018-05-23] MEDS: ATORVASTATIN 40 MG TAB PO (21:04)
[2018-05-23] MEDS: INSULIN GLARGINE [LANTus] (100 UNITS/ML) SYG SC (21:08)
[2018-05-24] MEDS: ACETAMINOPHEN 1000MG/100ML IV 100 ML IVPB ×3 (00:35→13:30)
[2018-05-24] MEDS: HYDROmorphONE 2 MG/ML SYG IV ×6 (00:44→17:10)
[2018-05-24] MEDS: ACCU-CHEK XX (02:00)
[2018-05-24] MEDS: HEPARIN 5,000 UNIT/0.5 ML VIAL SC ×2 (06:00→14:00)
[2018-05-24] MEDS: PANTOPRAZOLE (EC) 40 MG TAB PO (06:55)
[2018-05-24] MEDS: INSULIN ASPART [NOVOLOG] 3 ML PEN SC ×6 (07:50→18:14)
[2018-05-24] MEDS: FERROUS FUMARATE (SR) TAB PO (08:31)
[2018-05-24] MEDS: predniSONE 10 MG TAB PO (08:31)
[2018-05-24] MEDS: POLYETHYLENE GLYCOL 17 GM PACKET PO (08:31)
[2018-05-24] MEDS: CLOPIDOGREL 75 MG TAB PO (08:31)
[2018-05-24] MEDS: GABAPENTIN 100 MG CAP PO (08:32)
[2018-05-24] MEDS: ASPIRIN 81 MG TAB PO (08:32)
[2018-05-24] MEDS: LUBIPROSTONE 24 MCG CAP PO (08:38)
[2018-05-24] MEDS: FENOFIBRATE 48 MG TAB PO (08:39)
[2018-05-24] MEDS: oxyCODONE (CR) 20 MG TAB [oxyCONTIN] PO ×2 (08:39→13:02)
[2018-05-24] MEDS: LISINOPRIL 20 MG TAB PO (09:45)
[2018-05-24] MEDS: BALSAM PERU/CASTOR OIL 60 GM TUBE TOP (09:46)
== END 2018-05-24 19:00 | DRG 467 ==
LOC: 2NE 15:56 → MS1 05-16 12:20
PROVIDERS: Internal Medicine
PROC: 0SRD0J9 Replacement of Left Knee Joint with Synthetic Substitute, Cemented, Open Approach (ICD-10-PCS; principal; 2018-05-16 07:43)
PROC: 0SPD09Z Removal of Liner from Left Knee Joint, Open Approach (ICD-10-PCS; 2018-05-16 07:43)
PROC: 0SPD0JZ Removal of Synthetic Substitute from Left Knee Joint, Open Approach (ICD-10-PCS; 2018-05-16 07:43)
PROC: 0SUW09Z Supplement Left Knee Joint, Tibial Surface with Liner, Open Approach (ICD-10-PCS; 2018-05-16 07:43)
PROC: 0QSHXZZ Reposition Left Tibia, External Approach (ICD-10-PCS; 2018-05-16 07:43)
DX: S72.492A Other fracture of lower end of left femur, initial encounter for closed fracture (principal); M97.12XA Periprosthetic fracture around internal prosthetic left knee joint, initial encounter; N39.0 Urinary tract infection, site not specified; E87.0 Hyperosmolality and hypernatremia; F11.20 Opioid dependence, uncomplicated; S82.892A Other fracture of left lower leg, initial encounter for closed fracture; I10 Essential (primary) hypertension; E78.5 Hyperlipidemia, unspecified; M06.9 Rheumatoid arthritis, unspecified; I70.203 Unspecified atherosclerosis of native arteries of extremities, bilateral legs; B96.1 Klebsiella pneumoniae [K. pneumoniae] as the cause of diseases classified elsewhere; B95.2 Enterococcus as the cause of diseases classified elsewhere; G89.4 Chronic pain syndrome; K59.00 Constipation, unspecified; E09.51 Drug or chemical induced diabetes mellitus with diabetic peripheral angiopathy without gangrene; F41.9 Anxiety disorder, unspecified; D63.8 Anemia in other chronic diseases classified elsewhere; T38.0X5A Adverse effect of glucocorticoids and synthetic analogues, initial encounter; Z96.612 Presence of left artificial shoulder joint; Z96.653 Presence of artificial knee joint, bilateral; Z96.642 Presence of left artificial hip joint; Z79.4 Long term (current) use of insulin; Z86.718 Personal history of other venous thrombosis and embolism; Z95.828 Presence of other vascular implants and grafts; Z79.02 Long term (current) use of antithrombotics/antiplatelets; Z79.82 Long term (current) use of aspirin; W01.0XXA Fall on same level from slipping, tripping and stumbling without subsequent striking against object, initial encounter; Y93.E1 Activity, personal bathing and showering; Y92.002 Bathroom of unspecified non-institutional (private) residence as the place of occurrence of the external cause
CPT/HCPCS: 71045; 73510; 73550; 73560; 73562; 73590; 73600-LT; 73610; 80048; 80053; 80061; 81001; 81003; 82043; 82962; 83036; 83540; 83735; 84100; 84155; 84300; 84443; 85025; 85610; 86850; 86900; 86901; 86920; 87081; 87086; 88300; 93005; 93306; 93922; 93970; 93971; 97110; 97162; 97167; 97530; 97535

== ENCOUNTER 2018-05-24 19:31 | Inpatient (IN) | payer MEDICARE, BC ==
[2018-05-24] MEDS ORDERED: LORAZEPAM 2 MG INJ IV (21:30)
[2018-05-24] MEDS ORDERED: GLUCOSE GEL 15 GRAM TUBE PO ×2 (21:30)
[2018-05-24] MEDS ORDERED: GLUCOSE GEL 15 GRAM TUBE BUCCAL (21:30)
[2018-05-24] MEDS ORDERED: NA PHOSPHATE/BIPHOS 133 ML ENEMA PR (21:30)
[2018-05-24] MEDS ORDERED: DEXTROSE 50% 50 ML SYRINGE IV (21:30)
[2018-05-24] MEDS ORDERED: GLUCAGON 1 MG INJ IM (21:30)
[2018-05-24] MEDS ORDERED: MAGNESIUM HYDROXIDE 30ML CUP PO (21:30)
[2018-05-24] MEDS ORDERED: DIPHENHYDRAMINE 50 MG INJ IV (21:30)
[2018-05-24] MEDS: HEPARIN 5,000 UNIT/0.5 ML VIAL SC (22:00)
[2018-05-24] MEDS: INSULIN ASPART [NOVOLOG] 3 ML PEN SC (22:30)
[2018-05-24] MEDS: FERROUS FUMARATE (SR) TAB PO (22:30)
[2018-05-24] MEDS: ATORVASTATIN 20 MG TAB PO (22:31)
[2018-05-24] MEDS: GABAPENTIN 100 MG CAP PO (22:32)
[2018-05-24] MEDS: oxyCODONE (CR) 20 MG TAB [oxyCONTIN] PO (22:37)
[2018-05-24] MEDS: LUBIPROSTONE 24 MCG CAP PO (22:39)
[2018-05-24] MEDS: INSULIN GLARGINE [LANTus] (100 UNITS/ML) SYG SC (22:40)
[2018-05-25 01:06] LABS: ADD UMIC YES; UR ASCORBIC ACID NEGATIVE (NEGATIVE); UR BACTERIA FEW /HPF (NONE SEEN); UR BILIRUBIN (Dip) NEGATIVE (NEGATIVE); UR BLOOD (Dip) 1+ mg/dL (NEGATIVE); UR BUDDING YEAST FEW /HPF (NONE SEEN); UR CLARITY SLIGHTLY CLOUDY (CLEAR); UR COLOR YELLOW (YELLOW); UR GLUCOSE (Dip) NEGATIVE (NEGATIVE); UR KETONES (Dip) NEGATIVE (NEGATIVE); UR LEUKOCYTE ESTERASE (Dip) 3+ Leu/ul (NEGATIVE); UR MUCUS MODERATE /HPF (NONE SEEN); UR NITRITE (Dip) NEGATIVE (NEGATIVE); UR RBC 7 /HPF (0-5); UR SPECIFIC GRAVITY (Dip) 1.019 (1.003-1.030); UR SQUAMOUS EPITHELIAL CELL FEW /HPF (FEW); UR TOTAL PROTEIN (Dip) NEGATIVE (NEGATIVE); UR UROBILINOGEN (Dip) 2+ mg/dL (NEGATIVE); UR WBC 103 /HPF (0-5)
[2018-05-25] MEDS ORDERED: PENDING SANTYL ORDER FOR WOUND CARE XX (01:30)
[2018-05-25] MEDS: ACCU-CHEK XX (02:00)
[2018-05-25] MEDS: HEPARIN 5,000 UNIT/0.5 ML VIAL SC ×3 (06:00→21:03)
[2018-05-25] MEDS: PANTOPRAZOLE (EC) 40 MG TAB PO (06:57)
[2018-05-25] MEDS: HYDROmorphONE 1 MG/ML SYG IV ×3 (06:58→20:45)
[2018-05-25 07:14] LABS: ADD MAN DIFF? NO
[2018-05-25 07:19] LABS: BASOPHILS % 0.3 % (0.0-2.0); EOSINOPHILS # 0.3 10^3/ul (0.0-0.5); EOSINOPHILS % 2.9 % (0.0-7.0); HEMATOCRIT 27.9 % (37.0-47.0); HEMOGLOBIN 8.7 g/dl (12.0-16.0); LYMPHOCYTES # 1.6 10^3/ul (0.8-2.9); LYMPHOCYTES % 13.3 % (15.0-51.0); MEAN CORPUSCULAR HEMOGLOBIN 30.5 pg (29.0-33.0); MEAN CORPUSCULAR HGB CONC 31.2 g/dl (32.0-37.0); MEAN CORPUSCULAR VOLUME 97.9 fl (82.0-101.0); MEAN PLATELET VOLUME 8.7 fl (7.4-10.4); MONOCYTE # 1.3 10^3/ul (0.3-0.9); NEUTROPHIL # 8.4 10^3/ul (1.6-7.5); NEUTROPHILS % 71.8 % (39.0-77.0); PLATELET COUNT 372 10^3/UL (140-415); RED BLOOD COUNT 2.85 10^6/ul (4.20-5.40)
[2018-05-25 07:19] LABS: WHITE BLOOD COUNT 11.7 10^3/ul (4.8-10.8)
[2018-05-25] MEDS: INSULIN ASPART [NOVOLOG] 3 ML PEN SC ×7 (07:35→21:10)
[2018-05-25] MEDS ORDERED: INSULIN ASPART [NOVOLOG] 3 ML PEN SC (07:35)
[2018-05-25 08:09] LABS: ALANINE AMINOTRANSFERASE 35 IU/L (13-69); ALBUMIN 2.8 g/dl (3.3-4.9); ALBUMIN/GLOBULIN RATIO 0.93; ALKALINE PHOSPHATASE 65 IU/L (42-121); ANION GAP 11 (8-16); ASPARTATE AMINO TRANSFERASE 28 IU/L (15-46); BILIRUBIN,INDIRECT 0.6 mg/dl (0-1.1); BILIRUBIN,TOTAL 0.6 mg/dl (0.2-1.3); BLOOD UREA NITROGEN 22 mg/dl (7-20); CALCIUM 8.5 mg/dl (8.4-10.2); CARBON DIOXIDE 30 mmol/L (21-31); CHLORIDE 104 mmol/L (97-110); GLUCOSE 125 mg/dl (70-220); SODIUM 141 mmol/L (135-144); TOTAL PROTEIN 5.8 g/dl (6.1-8.1)
[2018-05-25] MEDS: POLYETHYLENE GLYCOL 17 GM PACKET PO (10:00)
[2018-05-25] MEDS: BALSAM PERU/CASTOR OIL 60 GM TUBE TOP (10:00)
[2018-05-25] MEDS: GABAPENTIN 100 MG CAP PO ×2 (10:00→21:02)
[2018-05-25] MEDS ORDERED: NA PHOSPHATE/BIPHOS 133 ML ENEMA PR (10:00)
[2018-05-25] MEDS: oxyCODONE (CR) 20 MG TAB [oxyCONTIN] PO ×3 (10:01→22:03)
[2018-05-25] MEDS: CLOPIDOGREL 75 MG TAB PO (10:01)
[2018-05-25] MEDS: FERROUS FUMARATE (SR) TAB PO ×2 (10:01→21:02)
[2018-05-25] MEDS: ASPIRIN 81 MG TAB PO (10:01)
[2018-05-25] MEDS: LUBIPROSTONE 24 MCG CAP PO ×2 (10:01→21:00)
[2018-05-25] MEDS: predniSONE 10 MG TAB PO (10:01)
[2018-05-25] MEDS: LISINOPRIL 20 MG TAB PO (10:02)
[2018-05-25] MEDS: FENOFIBRATE 48 MG TAB PO (10:02)
[2018-05-25] MEDS: ATORVASTATIN 20 MG TAB PO (21:02)
[2018-05-25] MEDS: INSULIN GLARGINE [LANTus] (100 UNITS/ML) SYG SC (21:09)
[2018-05-26] MEDS: ACCU-CHEK XX (02:32)
[2018-05-26] MEDS: HEPARIN 5,000 UNIT/0.5 ML VIAL SC (06:00)
[2018-05-26] MEDS: PANTOPRAZOLE (EC) 40 MG TAB PO (06:39)
[2018-05-26] MEDS: HYDROmorphONE 1 MG/ML SYG IV ×5 (06:40→19:30)
[2018-05-26 08:44] LABS: ADD MAN DIFF? NO
[2018-05-26 08:47] LABS: WHITE BLOOD COUNT 8.8 10^3/ul (4.8-10.8)
[2018-05-26 08:47] LABS: BASOPHIL # 0.1 10^3/ul (0.0-0.1); BASOPHILS % 0.8 % (0.0-2.0); EOSINOPHILS # 0.3 10^3/ul (0.0-0.5); EOSINOPHILS % 3.5 % (0.0-7.0); HEMATOCRIT 27.3 % (37.0-47.0); HEMOGLOBIN 8.2 g/dl (12.0-16.0); LYMPHOCYTES # 1.9 10^3/ul (0.8-2.9); LYMPHOCYTES % 21.8 % (15.0-51.0); MEAN CORPUSCULAR HEMOGLOBIN 29.8 pg (29.0-33.0); MEAN CORPUSCULAR VOLUME 99.3 fl (82.0-101.0); MEAN PLATELET VOLUME 8.8 fl (7.4-10.4); MONOCYTES % 11.2 % (0.0-11.0); NEUTROPHIL # 5.5 10^3/ul (1.6-7.5); NEUTROPHILS % 62.2 % (39.0-77.0); PLATELET COUNT 330 10^3/UL (140-415); RED BLOOD COUNT 2.75 10^6/ul (4.20-5.40); RED CELL DISTRIBUTION WIDTH 15.4 % (11.5-14.5)
[2018-05-26] MEDS: CLOPIDOGREL 75 MG TAB PO (08:59)
[2018-05-26] MEDS: POLYETHYLENE GLYCOL 17 GM PACKET PO (08:59)
[2018-05-26] MEDS: LUBIPROSTONE 24 MCG CAP PO ×3 (08:59→21:00)
[2018-05-26] MEDS: FERROUS FUMARATE (SR) TAB PO ×2 (08:59→21:04)
[2018-05-26] MEDS: GABAPENTIN 100 MG CAP PO ×2 (09:00→21:04)
[2018-05-26] MEDS: ASPIRIN 81 MG TAB PO (09:00)
[2018-05-26] MEDS: FENOFIBRATE 48 MG TAB PO (09:01)
[2018-05-26] MEDS: INSULIN ASPART [NOVOLOG] 3 ML PEN SC ×7 (09:07→21:00)
[2018-05-26 09:10] LABS: ANION GAP 10 (8-16); BLOOD UREA NITROGEN 22 mg/dl (7-20); CALCIUM 8.6 mg/dl (8.4-10.2); CARBON DIOXIDE 30 mmol/L (21-31); CHLORIDE 105 mmol/L (97-110); CREATININE 0.72 mg/dl (0.44-1.00); GLUCOSE 134 mg/dl (70-220); POTASSIUM 4.4 mmol/L (3.5-5.1); SODIUM 141 mmol/L (135-144)
[2018-05-26] MEDS: ENOXAPARIN 30 MG/0.3 ML SYG SC (09:30)
[2018-05-26] MEDS: oxyCODONE (CR) 20 MG TAB [oxyCONTIN] PO ×3 (09:44→21:05)
[2018-05-26] MEDS: predniSONE 10 MG TAB PO (09:46)
[2018-05-26] MEDS: BALSAM PERU/CASTOR OIL 60 GM TUBE TOP (09:47)
[2018-05-26] MEDS: LISINOPRIL 20 MG TAB PO (09:48)
[2018-05-26] MEDS: ATORVASTATIN 20 MG TAB PO (21:04)
[2018-05-26] MEDS: INSULIN GLARGINE [LANTus] (100 UNITS/ML) SYG SC (21:12)
[2018-05-26] MEDS: ONDANSETRON 4 MG INJ IV (22:32)
[2018-05-27] MEDS: ACCU-CHEK XX (02:00)
[2018-05-27] MEDS: HYDROmorphONE 1 MG/ML SYG IV ×2 (04:36→12:08)
[2018-05-27] MEDS: PANTOPRAZOLE (EC) 40 MG TAB PO (06:46)
[2018-05-27 07:30] LABS: ADD MAN DIFF? NO
[2018-05-27 07:35] LABS: BASOPHIL # 0.1 10^3/ul (0.0-0.1); BASOPHILS % 0.5 % (0.0-2.0); EOSINOPHILS # 0.4 10^3/ul (0.0-0.5); EOSINOPHILS % 3.3 % (0.0-7.0); HEMATOCRIT 29.2 % (37.0-47.0); HEMOGLOBIN 8.9 g/dl (12.0-16.0); MEAN CORPUSCULAR HEMOGLOBIN 30.5 pg (29.0-33.0); MEAN CORPUSCULAR HGB CONC 30.5 g/dl (32.0-37.0); MEAN PLATELET VOLUME 8.6 fl (7.4-10.4); MONOCYTE # 1.2 10^3/ul (0.3-0.9); MONOCYTES % 10.4 % (0.0-11.0); NEUTROPHIL # 7.4 10^3/ul (1.6-7.5); NEUTROPHILS % 67.3 % (39.0-77.0); PLATELET COUNT 365 10^3/UL (140-415); RED BLOOD COUNT 2.92 10^6/ul (4.20-5.40); RED CELL DISTRIBUTION WIDTH 15.3 % (11.5-14.5)
[2018-05-27] MEDS: INSULIN ASPART [NOVOLOG] 3 ML PEN SC ×7 (07:53→20:51)
[2018-05-27 08:10] LABS: ANION GAP 12 (8-16); BLOOD UREA NITROGEN 23 mg/dl (7-20); CALCIUM 8.8 mg/dl (8.4-10.2); CARBON DIOXIDE 30 mmol/L (21-31); CHLORIDE 104 mmol/L (97-110); CREATININE 0.83 mg/dl (0.44-1.00); GLUCOSE 147 mg/dl (70-220); MAGNESIUM 2.1 mg/dl (1.7-2.5); PHOSPHORUS 3.8 mg/dl (2.5-4.9); POTASSIUM 4.5 mmol/L (3.5-5.1); SODIUM 141 mmol/L (135-144)
[2018-05-27] MEDS: POLYETHYLENE GLYCOL 17 GM PACKET PO (09:00)
[2018-05-27] MEDS: BALSAM PERU/CASTOR OIL 60 GM TUBE TOP (09:30)
[2018-05-27] MEDS: GABAPENTIN 100 MG CAP PO ×2 (09:31→20:40)
[2018-05-27] MEDS: ENOXAPARIN 30 MG/0.3 ML SYG SC (09:31)
[2018-05-27] MEDS: oxyCODONE (CR) 20 MG TAB [oxyCONTIN] PO ×3 (09:32→20:41)
[2018-05-27] MEDS: LUBIPROSTONE 24 MCG CAP PO ×2 (09:32→20:52)
[2018-05-27] MEDS: LISINOPRIL 20 MG TAB PO (09:38)
[2018-05-27] MEDS: FERROUS FUMARATE (SR) TAB PO ×2 (09:39→20:40)
[2018-05-27] MEDS: FENOFIBRATE 48 MG TAB PO (09:39)
[2018-05-27] MEDS: CLOPIDOGREL 75 MG TAB PO (09:39)
[2018-05-27] MEDS: ASPIRIN 81 MG TAB PO (09:39)
[2018-05-27] MEDS: predniSONE 10 MG TAB PO (09:39)
[2018-05-27] MEDS: ONDANSETRON 4 MG INJ IV (10:20)
[2018-05-27] MEDS ORDERED: AZTREONAM 1 GM/NS (PMX) 50 ML IVPB (14:30)
[2018-05-27] MEDS: AZTREONAM 1 GM/NS (PMX) 50 ML IVPB (16:23)
[2018-05-27] MEDS: ATORVASTATIN 20 MG TAB PO (20:40)
[2018-05-27] MEDS: INSULIN GLARGINE [LANTus] (100 UNITS/ML) SYG SC (20:52)
[2018-05-28] MEDS: AZTREONAM 1 GM/NS (PMX) 50 ML IVPB ×3 (01:05→21:05)
[2018-05-28] MEDS: ACCU-CHEK XX (02:36)
[2018-05-28] MEDS: PANTOPRAZOLE (EC) 40 MG TAB PO (06:33)
[2018-05-28] MEDS: INSULIN ASPART [NOVOLOG] 3 ML PEN SC ×7 (07:35→21:00)
[2018-05-28 08:45] LABS: ADD MAN DIFF? NO
[2018-05-28 08:53] LABS: BASOPHIL # 0.1 10^3/ul (0.0-0.1); BASOPHILS % 0.6 % (0.0-2.0); EOSINOPHILS # 0.4 10^3/ul (0.0-0.5); EOSINOPHILS % 3.8 % (0.0-7.0); HEMATOCRIT 28.8 % (37.0-47.0); HEMOGLOBIN 8.5 g/dl (12.0-16.0); LYMPHOCYTES # 2.1 10^3/ul (0.8-2.9); LYMPHOCYTES % 18.6 % (15.0-51.0); MEAN CORPUSCULAR HEMOGLOBIN 29.5 pg (29.0-33.0); MEAN CORPUSCULAR HGB CONC 29.5 g/dl (32.0-37.0); MEAN PLATELET VOLUME 8.9 fl (7.4-10.4); MONOCYTE # 1.1 10^3/ul (0.3-0.9); MONOCYTES % 9.4 % (0.0-11.0); NEUTROPHIL # 7.7 10^3/ul (1.6-7.5); NEUTROPHILS % 67.2 % (39.0-77.0); PLATELET COUNT 415 10^3/UL (140-415); RED BLOOD COUNT 2.88 10^6/ul (4.20-5.40); RED CELL DISTRIBUTION WIDTH 15.3 % (11.5-14.5)
[2018-05-28 08:53] LABS: WHITE BLOOD COUNT 11.4 10^3/ul (4.8-10.8)
[2018-05-28] MEDS: POLYETHYLENE GLYCOL 17 GM PACKET PO (09:00)
[2018-05-28 09:09] LABS: ANION GAP 11 (8-16); BLOOD UREA NITROGEN 31 mg/dl (7-20); CALCIUM 8.7 mg/dl (8.4-10.2); CARBON DIOXIDE 31 mmol/L (21-31); CHLORIDE 106 mmol/L (97-110); CREATININE 0.95 mg/dl (0.44-1.00); GLUCOSE 127 mg/dl (70-220); PHOSPHORUS 3.9 mg/dl (2.5-4.9); POTASSIUM 4.5 mmol/L (3.5-5.1); SODIUM 143 mmol/L (135-144)
[2018-05-28] MEDS: ASPIRIN 81 MG TAB PO (09:26)
[2018-05-28] MEDS: LUBIPROSTONE 24 MCG CAP PO ×2 (09:26→21:03)
[2018-05-28] MEDS: CLOPIDOGREL 75 MG TAB PO (09:26)
[2018-05-28] MEDS: FERROUS FUMARATE (SR) TAB PO ×2 (09:26→21:03)
[2018-05-28] MEDS: oxyCODONE (CR) 20 MG TAB [oxyCONTIN] PO ×3 (09:27→21:04)
[2018-05-28] MEDS: predniSONE 10 MG TAB PO (09:27)
[2018-05-28] MEDS: FENOFIBRATE 48 MG TAB PO (09:28)
[2018-05-28] MEDS: LISINOPRIL 20 MG TAB PO (09:28)
[2018-05-28] MEDS: ENOXAPARIN 30 MG/0.3 ML SYG SC (09:28)
[2018-05-28] MEDS: BALSAM PERU/CASTOR OIL 60 GM TUBE TOP (09:30)
[2018-05-28] MEDS: ONDANSETRON 4 MG INJ IV (09:30)
[2018-05-28] MEDS: GABAPENTIN 100 MG CAP PO ×2 (09:49→21:03)
[2018-05-28] MEDS: HYDROmorphONE 1 MG/ML SYG IV ×2 (10:49→23:32)
[2018-05-28] MEDS: ZINC SULFATE 220 MG CAP PO (12:10)
[2018-05-28] MEDS: FOLIC ACID 1 MG TAB PO (12:10)
[2018-05-28] MEDS: ASCORBIC ACID 500 MG TAB PO (12:10)
[2018-05-28] MEDS: ATORVASTATIN 20 MG TAB PO (21:03)
[2018-05-28] MEDS: INSULIN GLARGINE [LANTus] (100 UNITS/ML) SYG SC (21:18)
[2018-05-29] MEDS: ACCU-CHEK XX (02:00)
[2018-05-29] MEDS: PANTOPRAZOLE (EC) 40 MG TAB PO (06:25)
[2018-05-29] MEDS: INSULIN ASPART [NOVOLOG] 3 ML PEN SC ×7 (07:35→22:00)
[2018-05-29] MEDS: ENOXAPARIN 30 MG/0.3 ML SYG SC (08:23)
[2018-05-29] MEDS: COLLAGENASE 5 GM (UD JAR) TOP (08:24)
[2018-05-29] MEDS: HYDROmorphONE 1 MG/ML SYG IV (08:25)
[2018-05-29] MEDS: FERROUS FUMARATE (SR) TAB PO ×2 (08:26→22:12)
[2018-05-29] MEDS: predniSONE 10 MG TAB PO (08:26)
[2018-05-29] MEDS: FENOFIBRATE 48 MG TAB PO (08:26)
[2018-05-29] MEDS: oxyCODONE (CR) 20 MG TAB [oxyCONTIN] PO ×3 (08:26→22:11)
[2018-05-29] MEDS: FOLIC ACID 1 MG TAB PO (08:26)
[2018-05-29] MEDS: ZINC SULFATE 220 MG CAP PO (08:26)
[2018-05-29] MEDS: CLOPIDOGREL 75 MG TAB PO (08:26)
[2018-05-29] MEDS: ASCORBIC ACID 500 MG TAB PO (08:26)
[2018-05-29] MEDS: GABAPENTIN 100 MG CAP PO ×2 (08:27→22:11)
[2018-05-29] MEDS: LISINOPRIL 20 MG TAB PO (08:27)
[2018-05-29] MEDS: ASPIRIN 81 MG TAB PO (08:30)
[2018-05-29] MEDS ORDERED: POLYETHYLENE GLYCOL 17 GM PACKET PO (09:00)
[2018-05-29] MEDS: AZTREONAM 1 GM/NS (PMX) 50 ML IVPB ×2 (10:52→22:10)
[2018-05-29] MEDS: ATORVASTATIN 20 MG TAB PO (22:10)
[2018-05-29] MEDS: INSULIN GLARGINE [LANTus] (100 UNITS/ML) SYG SC (22:13)
[2018-05-30] MEDS: ACCU-CHEK XX ×2 (02:00→22:28)
[2018-05-30] MEDS: PANTOPRAZOLE (EC) 40 MG TAB PO (06:51)
[2018-05-30] MEDS: HYDROmorphONE 1 MG/ML SYG IV ×4 (07:34→18:09)
[2018-05-30] MEDS: INSULIN ASPART [NOVOLOG] 3 ML PEN SC ×7 (07:35→22:13)
[2018-05-30 07:51] LABS: ADD MAN DIFF? NO
[2018-05-30 07:56] LABS: BASOPHIL # 0.1 10^3/ul (0.0-0.1); BASOPHILS % 0.6 % (0.0-2.0); EOSINOPHILS # 0.4 10^3/ul (0.0-0.5); HEMATOCRIT 27.9 % (37.0-47.0); HEMOGLOBIN 8.4 g/dl (12.0-16.0); LYMPHOCYTES # 2.2 10^3/ul (0.8-2.9); LYMPHOCYTES % 22.6 % (15.0-51.0); MEAN CORPUSCULAR HEMOGLOBIN 30.2 pg (29.0-33.0); MEAN CORPUSCULAR HGB CONC 30.1 g/dl (32.0-37.0); MEAN CORPUSCULAR VOLUME 100.4 fl (82.0-101.0); MEAN PLATELET VOLUME 8.7 fl (7.4-10.4); MONOCYTES % 10.2 % (0.0-11.0); NEUTROPHIL # 6.1 10^3/ul (1.6-7.5); NEUTROPHILS % 62.2 % (39.0-77.0); PLATELET COUNT 371 10^3/UL (140-415); RED BLOOD COUNT 2.78 10^6/ul (4.20-5.40); RED CELL DISTRIBUTION WIDTH 15.1 % (11.5-14.5)
[2018-05-30 07:56] LABS: WHITE BLOOD COUNT 9.8 10^3/ul (4.8-10.8)
[2018-05-30 08:16] LABS: ANION GAP 8 (8-16); BLOOD UREA NITROGEN 34 mg/dl (7-20); CALCIUM 8.9 mg/dl (8.4-10.2); CARBON DIOXIDE 30 mmol/L (21-31); CHLORIDE 109 mmol/L (97-110); CREATININE 0.87 mg/dl (0.44-1.00); GLUCOSE 91 mg/dl (70-220); POTASSIUM 4.4 mmol/L (3.5-5.1); SODIUM 143 mmol/L (135-144)
[2018-05-30] MEDS: predniSONE 10 MG TAB PO (09:38)
[2018-05-30] MEDS: ZINC SULFATE 220 MG CAP PO (09:39)
[2018-05-30] MEDS: CLOPIDOGREL 75 MG TAB PO (09:39)
[2018-05-30] MEDS: ASCORBIC ACID 500 MG TAB PO (09:39)
[2018-05-30] MEDS: FERROUS FUMARATE (SR) TAB PO ×2 (09:39→22:14)
[2018-05-30] MEDS: FENOFIBRATE 48 MG TAB PO (09:40)
[2018-05-30] MEDS: ASPIRIN 81 MG TAB PO (09:40)
[2018-05-30] MEDS: oxyCODONE (CR) 20 MG TAB [oxyCONTIN] PO ×3 (09:41→22:28)
[2018-05-30] MEDS: GABAPENTIN 100 MG CAP PO ×2 (09:41→22:14)
[2018-05-30] MEDS: LISINOPRIL 20 MG TAB PO (09:42)
[2018-05-30] MEDS: FOLIC ACID 1 MG TAB PO (09:43)
[2018-05-30] MEDS: ENOXAPARIN 30 MG/0.3 ML SYG SC (09:48)
[2018-05-30] MEDS: AZTREONAM 1 GM/NS (PMX) 50 ML IVPB ×2 (09:50→22:16)
[2018-05-30] MEDS: COLLAGENASE 5 GM (UD JAR) TOP (18:07)
[2018-05-30] MEDS: ATORVASTATIN 20 MG TAB PO (22:14)
[2018-05-30] MEDS: INSULIN GLARGINE [LANTus] (100 UNITS/ML) SYG SC (22:22)
[2018-05-30] MEDS: ONDANSETRON 4 MG INJ IV (22:31)
[2018-05-31] MEDS: HYDROmorphONE 1 MG/ML SYG IV ×5 (01:11→18:51)
[2018-05-31] MEDS: PANTOPRAZOLE (EC) 40 MG TAB PO (06:29)
[2018-05-31] MEDS: INSULIN ASPART [NOVOLOG] 3 ML PEN SC ×7 (08:04→21:00)
[2018-05-31] MEDS: LISINOPRIL 20 MG TAB PO (09:00)
[2018-05-31] MEDS: ZINC SULFATE 220 MG CAP PO (09:00)
[2018-05-31] MEDS: ASPIRIN 81 MG TAB PO (10:02)
[2018-05-31] MEDS: GABAPENTIN 100 MG CAP PO ×2 (10:02→21:00)
[2018-05-31] MEDS: FOLIC ACID 1 MG TAB PO (10:02)
[2018-05-31] MEDS: FERROUS FUMARATE (SR) TAB PO ×2 (10:02→20:59)
[2018-05-31] MEDS: predniSONE 10 MG TAB PO (10:02)
[2018-05-31] MEDS: CLOPIDOGREL 75 MG TAB PO (10:03)
[2018-05-31] MEDS: FENOFIBRATE 48 MG TAB PO (10:03)
[2018-05-31] MEDS: ASCORBIC ACID 500 MG TAB PO (10:03)
[2018-05-31] MEDS: oxyCODONE (CR) 20 MG TAB [oxyCONTIN] PO ×3 (10:08→21:00)
[2018-05-31] MEDS: AZTREONAM 1 GM/NS (PMX) 50 ML IVPB ×2 (10:28→21:05)
[2018-05-31] MEDS: ENOXAPARIN 30 MG/0.3 ML SYG SC (11:48)
[2018-05-31] MEDS: COLLAGENASE 5 GM (UD JAR) TOP (12:00)
[2018-05-31] MEDS: ATORVASTATIN 20 MG TAB PO (20:59)
[2018-05-31] MEDS: INSULIN GLARGINE [LANTus] (100 UNITS/ML) SYG SC (21:15)
[2018-06-01] MEDS: ACCU-CHEK XX (02:00)
[2018-06-01] MEDS: PANTOPRAZOLE (EC) 40 MG TAB PO (06:53)
[2018-06-01] MEDS: INSULIN ASPART [NOVOLOG] 3 ML PEN SC ×5 (07:35→20:23)
[2018-06-01] MEDS: oxyCODONE (CR) 20 MG TAB [oxyCONTIN] PO ×3 (08:20→20:20)
[2018-06-01] MEDS: COLLAGENASE 5 GM (UD JAR) TOP (09:00)
[2018-06-01] MEDS: FERROUS FUMARATE (SR) TAB PO ×2 (09:00→20:16)
[2018-06-01] MEDS: CLOPIDOGREL 75 MG TAB PO (09:00)
[2018-06-01] MEDS: ASCORBIC ACID 500 MG TAB PO (09:00)
[2018-06-01] MEDS: FOLIC ACID 1 MG TAB PO (11:16)
[2018-06-01] MEDS: ZINC SULFATE 220 MG CAP PO (11:16)
[2018-06-01] MEDS: AZTREONAM 1 GM/NS (PMX) 50 ML IVPB (11:17)
[2018-06-01] MEDS: GABAPENTIN 100 MG CAP PO ×2 (11:17→20:16)
[2018-06-01] MEDS: predniSONE 10 MG TAB PO (11:17)
[2018-06-01] MEDS: LISINOPRIL 20 MG TAB PO (11:19)
[2018-06-01] MEDS: FENOFIBRATE 48 MG TAB PO (11:20)
[2018-06-01] MEDS: ASPIRIN 81 MG TAB PO (11:21)
[2018-06-01] MEDS: ENOXAPARIN 30 MG/0.3 ML SYG SC (11:25)
[2018-06-01] MEDS: HYDROmorphONE 2 MG/ML SYG IV ×2 (14:59→21:53)
[2018-06-01] MEDS: ATORVASTATIN 20 MG TAB PO (20:16)
[2018-06-01] MEDS: INSULIN GLARGINE [LANTus] (100 UNITS/ML) SYG SC (20:22)
[2018-06-02] MEDS: ACCU-CHEK XX (01:02)
[2018-06-02] MEDS: PANTOPRAZOLE (EC) 40 MG TAB PO (06:04)
[2018-06-02] MEDS: INSULIN ASPART [NOVOLOG] 3 ML PEN SC ×7 (07:35→20:36)
[2018-06-02] MEDS: GABAPENTIN 100 MG CAP PO ×2 (08:01→20:27)
[2018-06-02] MEDS: ASCORBIC ACID 500 MG TAB PO (08:01)
[2018-06-02] MEDS: FENOFIBRATE 48 MG TAB PO (08:01)
[2018-06-02] MEDS: FERROUS FUMARATE (SR) TAB PO ×2 (08:01→20:27)
[2018-06-02] MEDS: predniSONE 10 MG TAB PO (08:01)
[2018-06-02] MEDS: oxyCODONE (CR) 20 MG TAB [oxyCONTIN] PO ×3 (08:01→20:28)
[2018-06-02] MEDS: CLOPIDOGREL 75 MG TAB PO (08:01)
[2018-06-02] MEDS: ASPIRIN 81 MG TAB PO (08:01)
[2018-06-02] MEDS: FOLIC ACID 1 MG TAB PO (08:02)
[2018-06-02] MEDS: LISINOPRIL 20 MG TAB PO (08:04)
[2018-06-02] MEDS: ENOXAPARIN 30 MG/0.3 ML SYG SC (08:07)
[2018-06-02] MEDS: ZINC SULFATE 220 MG CAP PO (08:08)
[2018-06-02] MEDS: HYDROmorphONE 2 MG/ML SYG IV ×2 (10:37→22:33)
[2018-06-02] MEDS: SENNA/DOCUSATE NA (8.6MG/50MG) TAB PO (12:20)
[2018-06-02] MEDS: COLLAGENASE 5 GM (UD JAR) TOP (14:55)
[2018-06-02] MEDS: ATORVASTATIN 20 MG TAB PO (20:28)
[2018-06-02] MEDS: BISACODYL 10 MG SUPP PR (20:33)
[2018-06-02] MEDS: INSULIN GLARGINE [LANTus] (100 UNITS/ML) SYG SC (20:36)
[2018-06-03] MEDS: ACCU-CHEK XX (02:00)
[2018-06-03] MEDS: PANTOPRAZOLE (EC) 40 MG TAB PO (06:03)
[2018-06-03] MEDS: INSULIN ASPART [NOVOLOG] 3 ML PEN SC ×7 (07:35→20:46)
[2018-06-03] MEDS: HYDROmorphONE 2 MG/ML SYG IV ×5 (07:57→23:49)
[2018-06-03] MEDS: FOLIC ACID 1 MG TAB PO (09:30)
[2018-06-03] MEDS: CLOPIDOGREL 75 MG TAB PO (09:30)
[2018-06-03] MEDS: BETHANECHOL 25 MG TAB PO (09:30)
[2018-06-03] MEDS: FERROUS FUMARATE (SR) TAB PO ×2 (09:31→20:48)
[2018-06-03] MEDS: GABAPENTIN 100 MG CAP PO ×2 (09:31→20:48)
[2018-06-03] MEDS: ASCORBIC ACID 500 MG TAB PO (09:31)
[2018-06-03] MEDS: FENOFIBRATE 48 MG TAB PO (09:32)
[2018-06-03] MEDS: ZINC SULFATE 220 MG CAP PO (09:32)
[2018-06-03] MEDS: predniSONE 10 MG TAB PO (09:32)
[2018-06-03] MEDS: oxyCODONE (CR) 20 MG TAB [oxyCONTIN] PO ×4 (09:33→20:49)
[2018-06-03] MEDS: LISINOPRIL 20 MG TAB PO (09:33)
[2018-06-03] MEDS: ASPIRIN 81 MG TAB PO (09:35)
[2018-06-03] MEDS: ENOXAPARIN 30 MG/0.3 ML SYG SC (10:49)
[2018-06-03] MEDS: COLLAGENASE 5 GM (UD JAR) TOP (10:50)
[2018-06-03] MEDS: ONDANSETRON 4 MG INJ IV (18:27)
[2018-06-03] MEDS: INSULIN GLARGINE [LANTus] (100 UNITS/ML) SYG SC (20:47)
[2018-06-03] MEDS: ATORVASTATIN 20 MG TAB PO (20:48)
[2018-06-03] MEDS: SENNA/DOCUSATE NA (8.6MG/50MG) TAB PO (20:55)
[2018-06-04] MEDS: ONDANSETRON 4 MG INJ IV ×2 (00:30→18:09)
[2018-06-04] MEDS: ACCU-CHEK XX (02:00)
[2018-06-04] MEDS: HYDROmorphONE 1 MG/ML SYG IV ×3 (04:47→07:58)
[2018-06-04] MEDS: PANTOPRAZOLE (EC) 40 MG TAB PO (06:44)
[2018-06-04] MEDS: INSULIN ASPART [NOVOLOG] 3 ML PEN SC ×7 (07:35→22:03)
[2018-06-04] MEDS ORDERED: HYDROmorphONE 4 MG/ML SYG IV ×2 (08:00→09:00)
[2018-06-04] MEDS: COLLAGENASE 5 GM (UD JAR) TOP (09:00)
[2018-06-04] MEDS: FENOFIBRATE 48 MG TAB PO (09:24)
[2018-06-04] MEDS: ZINC SULFATE 220 MG CAP PO (09:24)
[2018-06-04] MEDS: ASCORBIC ACID 500 MG TAB PO (09:24)
[2018-06-04] MEDS: FERROUS FUMARATE (SR) TAB PO ×2 (09:24→22:01)
[2018-06-04] MEDS: CLOPIDOGREL 75 MG TAB PO (09:24)
[2018-06-04] MEDS: GABAPENTIN 100 MG CAP PO ×2 (09:24→22:01)
[2018-06-04] MEDS: FOLIC ACID 1 MG TAB PO (09:24)
[2018-06-04] MEDS: predniSONE 10 MG TAB PO (09:24)
[2018-06-04] MEDS: oxyCODONE (CR) 20 MG TAB [oxyCONTIN] PO ×3 (09:24→22:00)
[2018-06-04] MEDS: LISINOPRIL 20 MG TAB PO (09:25)
[2018-06-04] MEDS: ASPIRIN 81 MG TAB PO (09:33)
[2018-06-04] MEDS: ENOXAPARIN 30 MG/0.3 ML SYG SC (11:50)
[2018-06-04] MEDS: HYDROmorphONE 2 MG/ML SYG IV ×4 (11:51→23:08)
[2018-06-04] MEDS: ATORVASTATIN 20 MG TAB PO (22:01)
[2018-06-04] MEDS: ZOLPIDEM 5 MG TAB PO (22:33)
[2018-06-04] MEDS: INSULIN GLARGINE [LANTus] (100 UNITS/ML) SYG SC (22:34)
[2018-06-05] MEDS: ACCU-CHEK XX (02:00)
[2018-06-05] MEDS: HYDROmorphONE 2 MG/ML SYG IV ×4 (04:28→14:26)
[2018-06-05] MEDS: PANTOPRAZOLE (EC) 40 MG TAB PO (06:24)
[2018-06-05] MEDS: INSULIN ASPART [NOVOLOG] 3 ML PEN SC ×4 (08:00→12:31)
[2018-06-05] MEDS: DEXTROSE 50% 50 ML SYRINGE IV (08:28)
[2018-06-05] MEDS: ASPIRIN 81 MG TAB PO (09:00)
[2018-06-05] MEDS: ENOXAPARIN 30 MG/0.3 ML SYG SC (09:00)
[2018-06-05] MEDS: GABAPENTIN 100 MG CAP PO (09:00)
[2018-06-05] MEDS: FENOFIBRATE 48 MG TAB PO (09:00)
[2018-06-05] MEDS: FOLIC ACID 1 MG TAB PO (09:00)
[2018-06-05] MEDS: FERROUS FUMARATE (SR) TAB PO (09:00)
[2018-06-05] MEDS: CLOPIDOGREL 75 MG TAB PO (09:00)
[2018-06-05] MEDS: LISINOPRIL 20 MG TAB PO (09:00)
[2018-06-05] MEDS: COLLAGENASE 5 GM (UD JAR) TOP (09:00)
[2018-06-05] MEDS: predniSONE 10 MG TAB PO (09:00)
[2018-06-05] MEDS: oxyCODONE (CR) 20 MG TAB [oxyCONTIN] PO ×2 (09:00→13:00)
[2018-06-05] MEDS: ONDANSETRON 4 MG INJ IV (12:35)
[2018-06-05] MEDS ORDERED: INSULIN GLARGINE [LANTus] (100 UNITS/ML) SYG SC (21:00)
== END 2018-06-05 15:30 | DRG 560 ==
LOC: VRC 19:31
PROVIDERS: Physical Medicine & Rehabilitation
PROC: F07Z5FZ Bed Mobility Treatment using Assistive, Adaptive, Supportive or Protective Equipment (ICD-10-PCS; principal; 2018-05-25)
PROC: F07Z8FZ Transfer Training Treatment using Assistive, Adaptive, Supportive or Protective Equipment (ICD-10-PCS; 2018-05-25)
PROC: F07Z9FZ Gait Training/Functional Ambulation Treatment using Assistive, Adaptive, Supportive or Protective Equipment (ICD-10-PCS; 2018-05-25)
PROC: F08Z2FZ Grooming/Personal Hygiene Treatment using Assistive, Adaptive, Supportive or Protective Equipment (ICD-10-PCS; 2018-05-25)
PROC: F08Z1FZ Dressing Techniques Treatment using Assistive, Adaptive, Supportive or Protective Equipment (ICD-10-PCS; 2018-05-25)
PROC: F08Z0FZ Bathing/Showering Techniques Treatment using Assistive, Adaptive, Supportive or Protective Equipment (ICD-10-PCS; 2018-05-25)
DX: Z47.1 Aftercare following joint replacement surgery (principal); N39.0 Urinary tract infection, site not specified; I42.9 Cardiomyopathy, unspecified; E11.42 Type 2 diabetes mellitus with diabetic polyneuropathy; L89.520 Pressure ulcer of left ankle, unstageable; L89.510 Pressure ulcer of right ankle, unstageable; G89.18 Other acute postprocedural pain; Z96.652 Presence of left artificial knee joint; S82.842D Displaced bimalleolar fracture of left lower leg, subsequent encounter for closed fracture with routine healing; D64.9 Anemia, unspecified; E78.5 Hyperlipidemia, unspecified; M06.9 Rheumatoid arthritis, unspecified; I10 Essential (primary) hypertension; G89.4 Chronic pain syndrome; F06.31 Mood disorder due to known physiological condition with depressive features; W06.XXXD Fall from bed, subsequent encounter; K59.00 Constipation, unspecified; B96.5 Pseudomonas (aeruginosa) (mallei) (pseudomallei) as the cause of diseases classified elsewhere; Z79.4 Long term (current) use of insulin; Z79.84 Long term (current) use of oral hypoglycemic drugs; Z79.82 Long term (current) use of aspirin; Z79.52 Long term (current) use of systemic steroids; Z79.02 Long term (current) use of antithrombotics/antiplatelets; Z86.718 Personal history of other venous thrombosis and embolism
CPT/HCPCS: 80048; 80053; 81001; 82962; 83735; 84100; 85025; 87081; 87086; 97110; 97150; 97163; 97167; 97530; 97535; 97542

== ENCOUNTER 2018-07-17 08:19 | Day surgery (SDC) | payer MEDICARE, BC ==
[~2018-07-17 08:19] MED LIST: CEFAZOLIN 1 GM INJ; CEFAZOLIN 2 GM/50 ML (PMX) 50 ML IVPB; DEXAMETHASONE 4 MG/ML 1 ML INJ
[2018-07-17 10:12] LABS: ADD MAN DIFF? NO
[2018-07-17 10:28] LABS: BASOPHIL # 0.1 10^3/ul (0.0-0.1); BASOPHILS % 0.7 % (0.0-2.0); EOSINOPHILS # 0.4 10^3/ul (0.0-0.5); EOSINOPHILS % 4.4 % (0.0-7.0); HEMOGLOBIN 8.9 g/dl (12.0-16.0); LYMPHOCYTES # 1.7 10^3/ul (0.8-2.9); LYMPHOCYTES % 17.6 % (15.0-51.0); MEAN CORPUSCULAR HEMOGLOBIN 27.6 pg (29.0-33.0); MEAN CORPUSCULAR HGB CONC 29.7 g/dl (32.0-37.0); MEAN CORPUSCULAR VOLUME 92.9 fl (82.0-101.0); MEAN PLATELET VOLUME 8.9 fl (7.4-10.4); MONOCYTE # 0.8 10^3/ul (0.3-0.9); MONOCYTES % 8.6 % (0.0-11.0); NEUTROPHIL # 6.5 10^3/ul (1.6-7.5); NEUTROPHILS % 68.3 % (39.0-77.0); PLATELET COUNT 360 10^3/UL (140-415); RED BLOOD COUNT 3.23 10^6/ul (4.20-5.40)
[2018-07-17 10:28] LABS: WHITE BLOOD COUNT 9.5 10^3/ul (4.8-10.8)
[2018-07-17 10:35] LABS: ALANINE AMINOTRANSFERASE 21 IU/L (13-69); ALBUMIN 2.7 g/dl (3.3-4.9); ALKALINE PHOSPHATASE 80 IU/L (42-121); ANION GAP 8 (5-13); ASPARTATE AMINO TRANSFERASE 17 IU/L (15-46); BILIRUBIN,INDIRECT 0.5 mg/dl (0-1.1); BILIRUBIN,TOTAL 0.5 mg/dl (0.2-1.3); BLOOD UREA NITROGEN 15 mg/dl (7-20); CALCIUM 8.1 mg/dl (8.4-10.2); CARBON DIOXIDE 29 mmol/L (21-31); CHLORIDE 108 mmol/L (97-110); CREATININE 0.54 mg/dl (0.44-1.00); Estimated GFR > 60 mL/min (>60); GLUCOSE 96 mg/dl (70-220); POTASSIUM 3.4 mmol/L (3.5-5.1); SODIUM 145 mmol/L (135-144); TOTAL PROTEIN 5.4 g/dl (6.1-8.1)
[2018-07-17 10:36] LABS: HOLD TRANSMISSIONS 1
[2018-07-17 10:40] LABS: INR 1.07; PT RATIO 1.1
[2018-07-17 10:41] LABS: PARTIAL THROMBOPLASTIN TIME 29.9 Sec (23.0-35.0)
[2018-07-17] MEDS ORDERED: NEOSTIGMINE 3 MG/3 ML SYRINGE ×2 (10:54→12:13)
[2018-07-17] MEDS ORDERED: MIDAZOLAM 1 MG/ML 2 ML INJ ×2 (10:54→12:14)
[2018-07-17] MEDS ORDERED: LIDOCAINE 2% (SDV) 5 ML INJ ×2 (10:54→12:13)
[2018-07-17] MEDS ORDERED: ROCURONIUM 50 MG INJ ×2 (10:54→12:13)
[2018-07-17] MEDS ORDERED: GLYCOPYRROLATE 0.4 MG INJ ×2 (10:54→12:13)
[2018-07-17] MEDS ORDERED: PROPOFOL 20 ML ×2 (10:54→12:13)
[2018-07-17] MEDS ORDERED: FENTAnyl 50 MCG/ML VIAL ×2 (10:55→12:14)
[2018-07-17] MEDS ORDERED: DEXAMETHASONE 4 MG/ML 1 ML INJ ×2 (10:55→12:14)
[2018-07-17] MEDS ORDERED: ONDANSETRON 4 MG INJ (10:55)
[2018-07-17] MEDS ORDERED: COLLAGENASE 5 GM (UD JAR) TOP (13:30)
== END 2018-07-17 14:46 ==
LOC: SDS 08:19
DX: I70.248 Atherosclerosis of native arteries of left leg with ulceration of other part of lower leg (principal); L97.825 Non-pressure chronic ulcer of other part of left lower leg with muscle involvement without evidence of necrosis; E78.5 Hyperlipidemia, unspecified; I10 Essential (primary) hypertension; M06.9 Rheumatoid arthritis, unspecified
CPT/HCPCS: 11043; 71045; 80053; 82962; 85025; 85610; 85730; 93005

== ENCOUNTER 2018-08-14 13:19 | Day surgery (SDC) | payer MEDICARE, BC ==
[2018-08-14] MEDS ORDERED: FENTAnyl 50 MCG/ML VIAL (14:21)
[2018-08-14] MEDS ORDERED: MIDAZOLAM 1 MG/ML 2 ML INJ (14:21)
[2018-08-14] MEDS ORDERED: CEFAZOLIN 1 GM INJ (14:35)
[2018-08-14] MEDS ORDERED: hydrALAzine 20 MG INJ IV (15:30)
[2018-08-14] MEDS ORDERED: ONDANSETRON 4 MG INJ IV (15:30)
[2018-08-14] MEDS ORDERED: DIPHENHYDRAMINE 50 MG INJ IV (15:30)
[2018-08-14] MEDS ORDERED: FENTAnyl 50 MCG/ML VIAL IV (15:30)
== END 2018-08-14 16:06 | disposition home or self-care (01) ==
LOC: SDS 13:19
DX: I70.248 Atherosclerosis of native arteries of left leg with ulceration of other part of lower leg (principal); L97.829 Non-pressure chronic ulcer of other part of left lower leg with unspecified severity; I70.238 Atherosclerosis of native arteries of right leg with ulceration of other part of lower leg; L97.819 Non-pressure chronic ulcer of other part of right lower leg with unspecified severity; I10 Essential (primary) hypertension; E11.9 Type 2 diabetes mellitus without complications; E78.5 Hyperlipidemia, unspecified; J44.9 Chronic obstructive pulmonary disease, unspecified; M06.9 Rheumatoid arthritis, unspecified
CPT/HCPCS: 11043; 82962

== ENCOUNTER 2018-09-03 21:08 | Inpatient (IN) | payer MEDICARE, BC ==
[2018-09-03] MEDS: NA PHOSPHATE/BIPHOS 133 ML ENEMA PR (23:30)
[2018-09-03] MEDS: HYDROmorphONE 1 MG/ML SYG IV (23:57)
[2018-09-04] MEDS: HYDROmorphONE 1 MG/ML SYG IV ×2 (02:58→06:06)
[2018-09-04] MEDS ORDERED: GLUCAGON 1 MG INJ IM (08:00)
[2018-09-04] MEDS: INSULIN ASPART [NOVOLOG] 3 ML PEN SC ×4 (08:00→20:28)
[2018-09-04] MEDS ORDERED: GLUCOSE GEL 15 GRAM TUBE PO ×2 (08:00)
[2018-09-04] MEDS ORDERED: VANCOMYCIN IV PER PHARMACY XX (08:00)
[2018-09-04] MEDS ORDERED: GLUCOSE GEL 15 GRAM TUBE BUCCAL (08:00)
[2018-09-04] MEDS ORDERED: DEXTROSE 50% 50 ML SYRINGE IV ×2 (08:00)
[2018-09-04 08:30] LABS: ADD MAN DIFF? NO
[2018-09-04 08:32] LABS: BASOPHILS % 0.2 % (0.0-2.0); EOSINOPHILS # 0.3 10^3/ul (0.0-0.5); EOSINOPHILS % 3.7 % (0.0-7.0); HEMATOCRIT 25.9 % (37.0-47.0); HEMOGLOBIN 7.7 g/dl (12.0-16.0); LYMPHOCYTES # 1.7 10^3/ul (0.8-2.9); LYMPHOCYTES % 20.6 % (15.0-51.0); MEAN CORPUSCULAR HEMOGLOBIN 26.1 pg (29.0-33.0); MEAN CORPUSCULAR HGB CONC 29.7 g/dl (32.0-37.0); MEAN CORPUSCULAR VOLUME 87.8 fl (82.0-101.0); MEAN PLATELET VOLUME 8.8 fl (7.4-10.4); MONOCYTES % 11.7 % (0.0-11.0); NEUTROPHIL # 5.2 10^3/ul (1.6-7.5); NEUTROPHILS % 63.4 % (39.0-77.0); PLATELET COUNT 283 10^3/UL (140-415); RED BLOOD COUNT 2.95 10^6/ul (4.20-5.40); RED CELL DISTRIBUTION WIDTH 18.2 % (11.5-14.5)
[2018-09-04 08:32] LABS: WHITE BLOOD COUNT 8.2 10^3/ul (4.8-10.8)
[2018-09-04] MEDS: HYDROmorphONE 2 MG/ML SYG IV ×7 (08:50→22:49)
[2018-09-04] MEDS: FENOFIBRATE 48 MG TAB PO (08:53)
[2018-09-04] MEDS: PANTOPRAZOLE (EC) 40 MG TAB PO (08:54)
[2018-09-04] MEDS: oxyCODONE (CR) 40 MG TAB [oxyCONTIN] PO ×3 (08:54→20:17)
[2018-09-04] MEDS: AMLODIPINE 5 MG TAB PO (08:54)
[2018-09-04] MEDS: CEFTRIAXONE 1 GM/50 ML (PMX) 50 ML IVPB ×2 (08:55→20:18)
[2018-09-04] MEDS: predniSONE 10 MG TAB PO (08:58)
[2018-09-04] MEDS ORDERED: FENOFIBRATE 48 MG TAB PO (09:00)
[2018-09-04] MEDS ORDERED: oxyCODONE (CR) 40 MG TAB [oxyCONTIN] PO (09:00)
[2018-09-04] MEDS: ALTEPLASE (CATHFLO) 2 MG INJ CATHETER (09:02)
[2018-09-04 09:05] LABS: ALANINE AMINOTRANSFERASE 22 IU/L (13-69); ALBUMIN 2.5 g/dl (3.3-4.9); ALBUMIN/GLOBULIN RATIO 0.86; ALKALINE PHOSPHATASE 76 IU/L (42-121); ANION GAP 6 (5-13); ASPARTATE AMINO TRANSFERASE 14 IU/L (15-46); BILIRUBIN,INDIRECT 0.1 mg/dl (0-1.1); BILIRUBIN,TOTAL 0.1 mg/dl (0.2-1.3); BLOOD UREA NITROGEN 12 mg/dl (7-20); CALCIUM 8.2 mg/dl (8.4-10.2); CARBON DIOXIDE 29 mmol/L (21-31); CHLORIDE 106 mmol/L (97-110); CREATININE 0.47 mg/dl (0.44-1.00); Estimated GFR > 60 mL/min (>60); GLUCOSE 128 mg/dl (70-220); POTASSIUM 3.7 mmol/L (3.5-5.1); SODIUM 141 mmol/L (135-144); TOTAL PROTEIN 5.4 g/dl (6.1-8.1)
[2018-09-04] MEDS: VANCOMYCIN 750 MG in SOD CHLORIDE 0.9% 150 ML IVPB ×2 (11:31→21:57)
[2018-09-04] MEDS: NA PHOSPHATE/BIPHOS 133 ML ENEMA PR (16:16)
[2018-09-04] MEDS: ATORVASTATIN 20 MG TAB PO (20:17)
[2018-09-04] MEDS: INSULIN GLARGINE [LANTus] (100 UNITS/ML) SYG SC (20:29)
[2018-09-05] MEDS: HYDROmorphONE 2 MG/ML SYG IV ×11 (01:21→22:43)
[2018-09-05] MEDS: ACCU-CHEK XX (02:23)
[2018-09-05 05:45] LABS: ADD MAN DIFF? NO
[2018-09-05 05:52] LABS: WHITE BLOOD COUNT 7.2 10^3/ul (4.8-10.8)
[2018-09-05 05:52] LABS: BASOPHIL # 0.1 10^3/ul (0.0-0.1); BASOPHILS % 0.7 % (0.0-2.0); EOSINOPHILS # 0.3 10^3/ul (0.0-0.5); EOSINOPHILS % 3.8 % (0.0-7.0); HEMATOCRIT 25.1 % (37.0-47.0); HEMOGLOBIN 7.4 g/dl (12.0-16.0); LYMPHOCYTES # 1.9 10^3/ul (0.8-2.9); LYMPHOCYTES % 26.8 % (15.0-51.0); MEAN CORPUSCULAR HEMOGLOBIN 26.4 pg (29.0-33.0); MEAN CORPUSCULAR HGB CONC 29.5 g/dl (32.0-37.0); MEAN CORPUSCULAR VOLUME 89.6 fl (82.0-101.0); MONOCYTE # 0.9 10^3/ul (0.3-0.9); MONOCYTES % 12.2 % (0.0-11.0); NEUTROPHILS % 55.8 % (39.0-77.0); PLATELET COUNT 307 10^3/UL (140-415); RED CELL DISTRIBUTION WIDTH 17.9 % (11.5-14.5)
[2018-09-05 06:25] LABS: ANION GAP 8 (5-13); BLOOD UREA NITROGEN 17 mg/dl (7-20); CALCIUM 8.3 mg/dl (8.4-10.2); CARBON DIOXIDE 30 mmol/L (21-31); CHLORIDE 105 mmol/L (97-110); CREATININE 0.65 mg/dl (0.44-1.00); Estimated GFR > 60 mL/min (>60); GLUCOSE 131 mg/dl (70-220); MAGNESIUM 1.7 mg/dl (1.7-2.5); PHOSPHORUS 3.5 mg/dl (2.5-4.9); POTASSIUM 3.8 mmol/L (3.5-5.1); SODIUM 143 mmol/L (135-144)
[2018-09-05] MEDS: KETOROLAC 15 MG INJ IV (06:46)
[2018-09-05] MEDS: INSULIN ASPART [NOVOLOG] 3 ML PEN SC ×4 (08:00→21:48)
[2018-09-05 08:07] LABS: ERYTHROCYTE SEDIMENTATION RATE 77 mm/Hr (0-30)
[2018-09-05] MEDS: CEFTRIAXONE 1 GM/50 ML (PMX) 50 ML IVPB ×2 (09:26→21:39)
[2018-09-05] MEDS: PANTOPRAZOLE (EC) 40 MG TAB PO (09:27)
[2018-09-05] MEDS: AMLODIPINE 5 MG TAB PO (09:27)
[2018-09-05] MEDS: FAMOTIDINE 20 MG TAB PO ×2 (09:27→21:41)
[2018-09-05] MEDS: oxyCODONE (CR) 40 MG TAB [oxyCONTIN] PO ×3 (09:27→21:40)
[2018-09-05] MEDS: FENOFIBRATE 48 MG TAB PO (09:27)
[2018-09-05 09:47] LABS: IRON 19 ug/dl (35-150)
[2018-09-05 09:57] LABS: % IRON SATURATION 9 % SAT (22-52); TOTAL IRON BINDING CAPACITY 221 ug/dl (241-421)
[2018-09-05] MEDS: VANCOMYCIN 750 MG in SOD CHLORIDE 0.9% 150 ML IVPB ×2 (10:45→22:43)
[2018-09-05] MEDS: ENOXAPARIN 40 MG/0.4 ML SYG SC (10:53)
[2018-09-05] MEDS: predniSONE 5 MG TAB PO (11:52)
[2018-09-05 21:30] LABS: VANCOMYCIN,TROUGH 15.3 ug/ml (10.0-20.0)
[2018-09-05] MEDS: ATORVASTATIN 20 MG TAB PO (21:41)
[2018-09-05] MEDS: SODIUM HYPOCHLORITE (1/40) 1 APPLIC BTL IRR (21:42)
[2018-09-05] MEDS: INSULIN GLARGINE [LANTus] (100 UNITS/ML) SYG SC (21:47)
[2018-09-06] MEDS: HYDROmorphONE 2 MG/ML SYG IV ×11 (00:33→22:53)
[2018-09-06] MEDS: ACCU-CHEK XX (02:29)
[2018-09-06 05:30] LABS: ADD MAN DIFF? NO
[2018-09-06 05:35] LABS: BASOPHIL # 0.1 10^3/ul (0.0-0.1); BASOPHILS % 0.7 % (0.0-2.0); EOSINOPHILS # 0.4 10^3/ul (0.0-0.5); EOSINOPHILS % 5.3 % (0.0-7.0); HEMATOCRIT 24.1 % (37.0-47.0); HEMOGLOBIN 7.2 g/dl (12.0-16.0); LYMPHOCYTES # 2.1 10^3/ul (0.8-2.9); LYMPHOCYTES % 28.8 % (15.0-51.0); MEAN CORPUSCULAR HEMOGLOBIN 26.7 pg (29.0-33.0); MEAN CORPUSCULAR HGB CONC 29.9 g/dl (32.0-37.0); MEAN CORPUSCULAR VOLUME 89.3 fl (82.0-101.0); MEAN PLATELET VOLUME 9.1 fl (7.4-10.4); MONOCYTE # 0.8 10^3/ul (0.3-0.9); MONOCYTES % 10.2 % (0.0-11.0); NEUTROPHILS % 54.5 % (39.0-77.0); PLATELET COUNT 347 10^3/UL (140-415); RED CELL DISTRIBUTION WIDTH 18.2 % (11.5-14.5)
[2018-09-06 05:35] LABS: WHITE BLOOD COUNT 7.4 10^3/ul (4.8-10.8)
[2018-09-06 06:31] LABS: ANION GAP 4 (5-13); BLOOD UREA NITROGEN 17 mg/dl (7-20); CALCIUM 8.3 mg/dl (8.4-10.2); CARBON DIOXIDE 30 mmol/L (21-31); CHLORIDE 107 mmol/L (97-110); CREATININE 0.55 mg/dl (0.44-1.00); Estimated GFR > 60 mL/min (>60); GLUCOSE 82 mg/dl (70-220); MAGNESIUM 1.6 mg/dl (1.7-2.5); POTASSIUM 4.2 mmol/L (3.5-5.1); SODIUM 141 mmol/L (135-144)
[2018-09-06] MEDS: INSULIN ASPART [NOVOLOG] 3 ML PEN SC ×4 (08:00→21:00)
[2018-09-06] MEDS: oxyCODONE (CR) 40 MG TAB [oxyCONTIN] PO ×3 (08:53→20:54)
[2018-09-06] MEDS: FENOFIBRATE 48 MG TAB PO (08:53)
[2018-09-06] MEDS: PANTOPRAZOLE (EC) 40 MG TAB PO (08:53)
[2018-09-06] MEDS: AMLODIPINE 5 MG TAB PO (08:54)
[2018-09-06] MEDS: FAMOTIDINE 20 MG TAB PO ×2 (08:54→20:53)
[2018-09-06] MEDS: CEFTRIAXONE 1 GM/50 ML (PMX) 50 ML IVPB ×2 (08:54→20:54)
[2018-09-06] MEDS: ENOXAPARIN 40 MG/0.4 ML SYG SC (08:55)
[2018-09-06] MEDS: SODIUM HYPOCHLORITE (1/40) 1 APPLIC BTL IRR ×2 (09:41→21:01)
[2018-09-06] MEDS: predniSONE 1 MG TAB PO (09:41)
[2018-09-06] MEDS: MAGNESIUM SULFATE 3 GM in DEXTROSE 5% 100 ML IVPB (10:02)
[2018-09-06] MEDS: VANCOMYCIN 750 MG in SOD CHLORIDE 0.9% 150 ML IVPB ×2 (10:33→22:44)
[2018-09-06] MEDS: COLLAGENASE 5 GM (UD JAR) TOP (11:46)
[2018-09-06] MEDS: MUPIROCIN 2% 22 GM OINT TOP ×2 (11:46→21:01)
[2018-09-06] MEDS: SOD FERRIC GLUC COMPLX 125 MG in SOD CHLORIDE 0.9% 100 ML IVPB (17:41)
[2018-09-06] MEDS: ATORVASTATIN 20 MG TAB PO (20:53)
[2018-09-06] MEDS: INSULIN GLARGINE [LANTus] (100 UNITS/ML) SYG SC (21:00)
[2018-09-07] MEDS: HYDROmorphONE 2 MG/ML SYG IV ×10 (01:34→22:17)
[2018-09-07] MEDS: ACCU-CHEK XX (02:00)
[2018-09-07 06:28] LABS: ADD MAN DIFF? NO
[2018-09-07 06:36] LABS: WHITE BLOOD COUNT 8.7 10^3/ul (4.8-10.8)
[2018-09-07 06:36] LABS: BASOPHIL # 0.1 10^3/ul (0.0-0.1); BASOPHILS % 0.7 % (0.0-2.0); EOSINOPHILS # 0.5 10^3/ul (0.0-0.5); EOSINOPHILS % 5.8 % (0.0-7.0); HEMATOCRIT 28.4 % (37.0-47.0); HEMOGLOBIN 8.3 g/dl (12.0-16.0); LYMPHOCYTES # 2.4 10^3/ul (0.8-2.9); LYMPHOCYTES % 27.1 % (15.0-51.0); MEAN CORPUSCULAR HEMOGLOBIN 26.3 pg (29.0-33.0); MEAN CORPUSCULAR HGB CONC 29.2 g/dl (32.0-37.0); MEAN CORPUSCULAR VOLUME 89.9 fl (82.0-101.0); MEAN PLATELET VOLUME 8.5 fl (7.4-10.4); MONOCYTE # 0.8 10^3/ul (0.3-0.9); MONOCYTES % 9.7 % (0.0-11.0); NEUTROPHIL # 4.9 10^3/ul (1.6-7.5); PLATELET COUNT 421 10^3/UL (140-415); RED BLOOD COUNT 3.16 10^6/ul (4.20-5.40); RED CELL DISTRIBUTION WIDTH 17.8 % (11.5-14.5)
[2018-09-07 07:06] LABS: ALANINE AMINOTRANSFERASE 19 IU/L (13-69); ALBUMIN 2.7 g/dl (3.3-4.9); ALBUMIN/GLOBULIN RATIO 1.03; ALKALINE PHOSPHATASE 63 IU/L (42-121); ANION GAP 7 (5-13); ASPARTATE AMINO TRANSFERASE 14 IU/L (15-46); BLOOD UREA NITROGEN 15 mg/dl (7-20); CALCIUM 8.6 mg/dl (8.4-10.2); CARBON DIOXIDE 32 mmol/L (21-31); CHLORIDE 104 mmol/L (97-110); CREATININE 0.54 mg/dl (0.44-1.00); Estimated GFR > 60 mL/min (>60); GLUCOSE 86 mg/dl (70-220); POTASSIUM 4.2 mmol/L (3.5-5.1); SODIUM 143 mmol/L (135-144); TOTAL PROTEIN 5.3 g/dl (6.1-8.1)
[2018-09-07 07:12] LABS: PHOSPHORUS 3.8 mg/dl (2.5-4.9)
[2018-09-07] MEDS: INSULIN ASPART [NOVOLOG] 3 ML PEN SC ×4 (08:00→20:14)
[2018-09-07] MEDS: oxyCODONE (CR) 40 MG TAB [oxyCONTIN] PO ×3 (08:12→20:16)
[2018-09-07] MEDS: CEFTRIAXONE 1 GM/50 ML (PMX) 50 ML IVPB ×2 (09:04→20:15)
[2018-09-07] MEDS: predniSONE 1 MG TAB PO (09:07)
[2018-09-07] MEDS: FAMOTIDINE 20 MG TAB PO ×2 (09:07→20:17)
[2018-09-07] MEDS: PANTOPRAZOLE (EC) 40 MG TAB PO (09:07)
[2018-09-07] MEDS: MUPIROCIN 2% 22 GM OINT TOP ×3 (09:10→20:17)
[2018-09-07] MEDS: SODIUM HYPOCHLORITE (1/40) 1 APPLIC BTL IRR ×2 (09:12→20:15)
[2018-09-07] MEDS: COLLAGENASE 5 GM (UD JAR) TOP (09:12)
[2018-09-07] MEDS: FENOFIBRATE 48 MG TAB PO (09:26)
[2018-09-07] MEDS: AMLODIPINE 5 MG TAB PO (09:26)
[2018-09-07] MEDS: ENOXAPARIN 40 MG/0.4 ML SYG SC (09:26)
[2018-09-07] MEDS: VANCOMYCIN 750 MG (PMX) 250 ML IVPB ×2 (10:06→22:16)
[2018-09-07] MEDS: SOD FERRIC GLUC COMPLX 125 MG in SOD CHLORIDE 0.9% 100 ML IVPB (13:14)
[2018-09-07] MEDS: INSULIN GLARGINE [LANTus] (100 UNITS/ML) SYG SC (20:15)
[2018-09-07] MEDS: ATORVASTATIN 20 MG TAB PO (20:16)
[2018-09-08] MEDS: HYDROmorphONE 2 MG/ML SYG IV ×9 (00:22→23:05)
[2018-09-08] MEDS: ACCU-CHEK XX (02:00)
[2018-09-08 07:17] LABS: ADD MAN DIFF? NO
[2018-09-08 07:23] LABS: WHITE BLOOD COUNT 9.8 10^3/ul (4.8-10.8)
[2018-09-08 07:24] LABS: BASOPHILS % 0.4 % (0.0-2.0); EOSINOPHILS # 0.4 10^3/ul (0.0-0.5); EOSINOPHILS % 4.5 % (0.0-7.0); HEMATOCRIT 25.5 % (37.0-47.0); HEMOGLOBIN 7.7 g/dl (12.0-16.0); LYMPHOCYTES # 2.5 10^3/ul (0.8-2.9); LYMPHOCYTES % 25.3 % (15.0-51.0); MEAN CORPUSCULAR HEMOGLOBIN 26.8 pg (29.0-33.0); MEAN CORPUSCULAR HGB CONC 30.2 g/dl (32.0-37.0); MEAN CORPUSCULAR VOLUME 88.9 fl (82.0-101.0); MEAN PLATELET VOLUME 8.9 fl (7.4-10.4); MONOCYTE # 0.9 10^3/ul (0.3-0.9); MONOCYTES % 8.7 % (0.0-11.0); NEUTROPHIL # 5.9 10^3/ul (1.6-7.5); NEUTROPHILS % 60.4 % (39.0-77.0); PLATELET COUNT 383 10^3/UL (140-415); RED BLOOD COUNT 2.87 10^6/ul (4.20-5.40)
[2018-09-08 07:46] LABS: ANION GAP 2 (5-13); BLOOD UREA NITROGEN 13 mg/dl (7-20); CALCIUM 8.6 mg/dl (8.4-10.2); CARBON DIOXIDE 33 mmol/L (21-31); CHLORIDE 107 mmol/L (97-110); CREATININE 0.55 mg/dl (0.44-1.00); Estimated GFR > 60 mL/min (>60); GLUCOSE 60 mg/dl (70-220); MAGNESIUM 1.8 mg/dl (1.7-2.5); PHOSPHORUS 3.8 mg/dl (2.5-4.9); POTASSIUM 3.7 mmol/L (3.5-5.1); SODIUM 142 mmol/L (135-144)
[2018-09-08] MEDS: INSULIN ASPART [NOVOLOG] 3 ML PEN SC ×4 (08:00→20:16)
[2018-09-08] MEDS: oxyCODONE (CR) 40 MG TAB [oxyCONTIN] PO ×3 (08:51→21:36)
[2018-09-08] MEDS: MUPIROCIN 2% 22 GM OINT TOP ×2 (08:51→20:24)
[2018-09-08] MEDS: predniSONE 1 MG TAB PO (08:51)
[2018-09-08] MEDS: CEFTRIAXONE 1 GM/50 ML (PMX) 50 ML IVPB (08:51)
[2018-09-08] MEDS: COLLAGENASE 5 GM (UD JAR) TOP (08:51)
[2018-09-08] MEDS: FENOFIBRATE 48 MG TAB PO (08:52)
[2018-09-08] MEDS: SODIUM HYPOCHLORITE (1/40) 1 APPLIC BTL IRR ×2 (08:52→20:24)
[2018-09-08] MEDS: PANTOPRAZOLE (EC) 40 MG TAB PO (08:52)
[2018-09-08] MEDS: FAMOTIDINE 20 MG TAB PO ×2 (08:52→20:10)
[2018-09-08] MEDS: ENOXAPARIN 40 MG/0.4 ML SYG SC (09:02)
[2018-09-08] MEDS: AMLODIPINE 5 MG TAB PO (09:03)
[2018-09-08 09:27] LABS: VANCOMYCIN,TROUGH 18.5 ug/ml (10.0-20.0)
[2018-09-08] MEDS: VANCOMYCIN 500 MG (PMX) 100 ML IVPB (12:52)
[2018-09-08] MEDS: SOD FERRIC GLUC COMPLX 125 MG in SOD CHLORIDE 0.9% 100 ML IVPB (13:46)
[2018-09-08] MEDS: ATORVASTATIN 20 MG TAB PO (20:09)
[2018-09-08] MEDS: INSULIN GLARGINE [LANTus] (100 UNITS/ML) SYG SC (20:17)
[2018-09-08] MEDS: DOXYCYCLINE 100 MG in SOD CHLORIDE 0.9% 250 ML IVPB (21:37)
[2018-09-09] MEDS: VANCOMYCIN 500 MG (PMX) 100 ML IVPB ×2 (00:32→12:00)
[2018-09-09] MEDS: HYDROmorphONE 2 MG/ML SYG IV ×5 (01:56→15:49)
[2018-09-09] MEDS: ACCU-CHEK XX (02:00)
[2018-09-09] MEDS: INSULIN ASPART [NOVOLOG] 3 ML PEN SC ×2 (08:00→12:00)
[2018-09-09] MEDS: PANTOPRAZOLE (EC) 40 MG TAB PO (09:49)
[2018-09-09] MEDS: SODIUM HYPOCHLORITE (1/40) 1 APPLIC BTL IRR (09:49)
[2018-09-09] MEDS: FAMOTIDINE 20 MG TAB PO (09:49)
[2018-09-09] MEDS: FENOFIBRATE 48 MG TAB PO (09:49)
[2018-09-09] MEDS: COLLAGENASE 5 GM (UD JAR) TOP (09:49)
[2018-09-09] MEDS: predniSONE 1 MG TAB PO (09:50)
[2018-09-09] MEDS: oxyCODONE (CR) 40 MG TAB [oxyCONTIN] PO ×2 (09:50→12:58)
[2018-09-09] MEDS: MUPIROCIN 2% 22 GM OINT TOP (09:51)
[2018-09-09] MEDS: AMLODIPINE 5 MG TAB PO (09:51)
[2018-09-09] MEDS: ENOXAPARIN 40 MG/0.4 ML SYG SC (09:52)
[2018-09-09] MEDS: DOXYCYCLINE 100 MG in SOD CHLORIDE 0.9% 250 ML IVPB (10:03)
[2018-09-09] MEDS: SOD FERRIC GLUC COMPLX 125 MG in SOD CHLORIDE 0.9% 100 ML IVPB (14:34)
== END 2018-09-09 16:00 | disposition short-term general hospital (02) | DRG 560 ==
LOC: 2NE 21:08
PROVIDERS: Internal Medicine
DX: T84.54XA Infection and inflammatory reaction due to internal left knee prosthesis, initial encounter (principal); I01.1 Acute rheumatic endocarditis; M00.062 Staphylococcal arthritis, left knee; N39.0 Urinary tract infection, site not specified; M06.9 Rheumatoid arthritis, unspecified; B95.62 Methicillin resistant Staphylococcus aureus infection as the cause of diseases classified elsewhere; E78.5 Hyperlipidemia, unspecified; E09.51 Drug or chemical induced diabetes mellitus with diabetic peripheral angiopathy without gangrene; G89.4 Chronic pain syndrome; D50.9 Iron deficiency anemia, unspecified; K57.30 Diverticulosis of large intestine without perforation or abscess without bleeding; K64.9 Unspecified hemorrhoids; Z79.4 Long term (current) use of insulin; Z86.718 Personal history of other venous thrombosis and embolism; Z96.651 Presence of right artificial knee joint; Z96.642 Presence of left artificial hip joint; Z88.2 Allergy status to sulfonamides; T38.0X5A Adverse effect of glucocorticoids and synthetic analogues, initial encounter; Y79.2 Prosthetic and other implants, materials and accessory orthopedic devices associated with adverse incidents
CPT/HCPCS: 73560; 80048; 80053; 80202; 82728; 82962; 83540; 83735; 84100; 85025; 85651; 86140; 87040; 87070; 87081; 93005; 93306

== ENCOUNTER 2019-02-12 21:28 | Inpatient (IN) | payer MEDICARE, BC ==
[2019-02-12 22:29] LABS: ADD MAN DIFF? NO
[2019-02-12 22:32] LABS: BASOPHIL # 0.1 10^3/ul (0.0-0.1); BASOPHILS % 0.5 % (0.0-2.0); EOSINOPHILS # 0.6 10^3/ul (0.0-0.5); EOSINOPHILS % 5.6 % (0.0-7.0); HEMATOCRIT 33.4 % (37.0-47.0); HEMOGLOBIN 10.2 g/dl (12.0-16.0); LYMPHOCYTES # 1.4 10^3/ul (0.8-2.9); LYMPHOCYTES % 12.9 % (15.0-51.0); MEAN CORPUSCULAR HEMOGLOBIN 27.9 pg (29.0-33.0); MEAN CORPUSCULAR HGB CONC 30.5 g/dl (32.0-37.0); MEAN CORPUSCULAR VOLUME 91.5 fl (82.0-101.0); MONOCYTES % 8.9 % (0.0-11.0); NEUTROPHILS % 71.8 % (39.0-77.0); PLATELET COUNT 358 10^3/UL (140-415); RED BLOOD COUNT 3.65 10^6/ul (4.20-5.40)
[2019-02-12 22:32] LABS: WHITE BLOOD COUNT 11.2 10^3/ul (4.8-10.8)
[2019-02-12 22:39] LABS: ALANINE AMINOTRANSFERASE 14 IU/L (13-69); ALBUMIN 3.4 g/dl (3.3-4.9); ALKALINE PHOSPHATASE 61 IU/L (42-121); ANION GAP 8 (5-13); ASPARTATE AMINO TRANSFERASE 35 IU/L (15-46); BILIRUBIN,INDIRECT 0.3 mg/dl (0-1.1); BILIRUBIN,TOTAL 0.3 mg/dl (0.2-1.3); BLOOD UREA NITROGEN 17 mg/dl (7-20); CALCIUM 9.3 mg/dl (8.4-10.2); CARBON DIOXIDE 26 mmol/L (21-31); CHLORIDE 106 mmol/L (97-110); CREATININE 0.54 mg/dl (0.44-1.00); Estimated GFR > 60 mL/min (>60); GLUCOSE 145 mg/dl (70-220); LIPASE 74 U/L (23-300); POTASSIUM 3.7 mmol/L (3.5-5.1); SODIUM 140 mmol/L (135-144); TOTAL PROTEIN 6.8 g/dl (6.1-8.1)
[2019-02-12 22:55] LABS: ADD UMIC YES; UR ASCORBIC ACID NEGATIVE (NEGATIVE); UR BACTERIA FEW /HPF (NONE SEEN); UR BILIRUBIN (Dip) NEGATIVE (NEGATIVE); UR BLOOD (Dip) 1+ mg/dL (NEGATIVE); UR CLARITY CLOUDY (CLEAR); UR COLOR YELLOW (YELLOW); UR GLUCOSE (Dip) NEGATIVE (NEGATIVE); UR KETONES (Dip) NEGATIVE (NEGATIVE); UR LEUKOCYTE ESTERASE (Dip) 3+ Leu/ul (NEGATIVE); UR MUCUS FEW /HPF (NONE SEEN); UR NITRITE (Dip) NEGATIVE (NEGATIVE); UR RBC 27 /HPF (0-5); UR SPECIFIC GRAVITY (Dip) 1.014 (1.003-1.030); UR SQUAMOUS EPITHELIAL CELL MODERATE /HPF (FEW); UR TOTAL PROTEIN (Dip) 1+ mg/dl (NEGATIVE); UR UROBILINOGEN (Dip) 1+ mg/dL (NEGATIVE); UR WBC > 182 /HPF (0-5)
[2019-02-13 00:09] LABS: ERYTHROCYTE SEDIMENTATION RATE 57 mm/Hr (0-30)
[2019-02-13] MEDS: PIPER-TAZO 3.375 GM IV (PMX) 100 ML IVPB (00:46)
[2019-02-13] MEDS: VANCOMYCIN 1 GM (PMX) 250 ML IVPB (01:19)
[2019-02-13] MEDS: HYDROmorphONE 1 MG/ML SYG IV (05:11)
[2019-02-13] MEDS ORDERED: ACETAMINOPHEN 325 MG TAB PO ×2 (14:00→14:30)
[2019-02-13] MEDS ORDERED: ONDANSETRON 4 MG INJ IV (14:00)
[2019-02-13] MEDS ORDERED: BISACODYL 10 MG SUPP PR (14:30)
[2019-02-13] MEDS ORDERED: GLUCAGON 1 MG INJ IM (15:00)
[2019-02-13] MEDS ORDERED: GLUCOSE GEL 15 GRAM TUBE BUCCAL (15:00)
[2019-02-13] MEDS ORDERED: GLUCOSE GEL 15 GRAM TUBE PO ×2 (15:00)
[2019-02-13] MEDS ORDERED: DEXTROSE 50% 50 ML SYRINGE IV ×2 (15:00)
[2019-02-13 15:31] LABS: C-REACTIVE PROTEIN 7.6 mg/dl (0.0-0.9)
[2019-02-13] MEDS: ACCU-CHEK XX ×2 (16:15→22:24)
[2019-02-13] MEDS ORDERED: ALBUTEROL/IPRATROPIUM (NEB) 3 ML AMP NEB (17:00)
[2019-02-13] MEDS: HYDROmorphONE 2 MG/ML SYG IV ×2 (17:07→23:32)
[2019-02-13] MEDS: PIPER-TAZO 2.25 GM (PMX) 50 ML IVPB ×2 (19:58→23:32)
[2019-02-13] MEDS: LUBIPROSTONE 24 MCG CAP PO ×2 (21:00→22:17)
[2019-02-13] MEDS: LIDOCAINE 1% (MDV) 20 ML INJ IM (22:11)
[2019-02-13] MEDS: ATORVASTATIN 20 MG TAB PO (22:18)
[2019-02-13] MEDS: oxyCODONE (CR) 40 MG TAB [oxyCONTIN] PO (22:19)
[2019-02-13] MEDS: INSULIN GLARGINE [LANTus] (100 UNITS/ML) SYG SC (22:21)
[2019-02-13 23:34] LABS: SYN FLD MN % 10.2 &; SYN FLD PMN % 89.8 % (0.0-25.0)
[2019-02-14] MEDS ORDERED: VANCOMYCIN IV PER PHARMACY XX
[2019-02-14 00:01] LABS: SYN FLD CLARITY Turbid; SYN FLD COLOR YELLOW; SYN FLD WBC 62957 /cmm (0-150)
[2019-02-14 00:01] LABS: SYN FLD SOURCE LEFT KNEE
[2019-02-14 00:02] LABS: PATH REVIEW? NO; SYN FLD CRYSTALS NO CRYSTALS SEEN (None seen)
[2019-02-14] MEDS: VANCOMYCIN 500 MG (PMX) 100 ML IVPB ×2 (01:31→12:19)
[2019-02-14] MEDS: PANTOPRAZOLE (EC) 40 MG TAB PO (05:47)
[2019-02-14] MEDS: PIPER-TAZO 2.25 GM (PMX) 50 ML IVPB ×4 (05:47→23:50)
[2019-02-14] MEDS: HYDROmorphONE 2 MG/ML SYG IV ×4 (05:53→23:49)
[2019-02-14 07:16] LABS: ADD MAN DIFF? NO
[2019-02-14 07:23] LABS: WHITE BLOOD COUNT 10.9 10^3/ul (4.8-10.8)
[2019-02-14 07:23] LABS: BASOPHIL # 0.1 10^3/ul (0.0-0.1); BASOPHILS % 0.8 % (0.0-2.0); EOSINOPHILS # 0.7 10^3/ul (0.0-0.5); EOSINOPHILS % 6.5 % (0.0-7.0); HEMATOCRIT 33.1 % (37.0-47.0); LYMPHOCYTES # 1.4 10^3/ul (0.8-2.9); LYMPHOCYTES % 12.9 % (15.0-51.0); MEAN CORPUSCULAR HEMOGLOBIN 27.6 pg (29.0-33.0); MEAN CORPUSCULAR HGB CONC 30.2 g/dl (32.0-37.0); MEAN CORPUSCULAR VOLUME 91.4 fl (82.0-101.0); MEAN PLATELET VOLUME 8.9 fl (7.4-10.4); MONOCYTES % 9.1 % (0.0-11.0); NEUTROPHIL # 7.7 10^3/ul (1.6-7.5); NEUTROPHILS % 70.3 % (39.0-77.0); PLATELET COUNT 408 10^3/UL (140-415); RED BLOOD COUNT 3.62 10^6/ul (4.20-5.40); RED CELL DISTRIBUTION WIDTH 14.2 % (11.5-14.5)
[2019-02-14 07:41] LABS: ANION GAP 7 (5-13); BLOOD UREA NITROGEN 18 mg/dl (7-20); CALCIUM 8.9 mg/dl (8.4-10.2); CARBON DIOXIDE 27 mmol/L (21-31); CHLORIDE 107 mmol/L (97-110); CREATININE 0.67 mg/dl (0.44-1.00); Estimated GFR > 60 mL/min (>60); GLUCOSE 51 mg/dl (70-220); MAGNESIUM 1.6 mg/dl (1.7-2.5); PHOSPHORUS 4.5 mg/dl (2.5-4.9); POTASSIUM 3.8 mmol/L (3.5-5.1); SODIUM 141 mmol/L (135-144)
[2019-02-14] MEDS: ACCU-CHEK XX ×4 (08:58→21:00)
[2019-02-14] MEDS: predniSONE 1 MG TAB PO (08:59)
[2019-02-14] MEDS: LUBIPROSTONE 24 MCG CAP PO ×4 (09:00→21:06)
[2019-02-14] MEDS: MAGNESIUM HYDROXIDE 30ML CUP PO ×2 (09:00→09:01)
[2019-02-14] MEDS: oxyCODONE (CR) 40 MG TAB [oxyCONTIN] PO ×3 (09:00→21:06)
[2019-02-14] MEDS: AMLODIPINE 5 MG TAB PO (09:00)
[2019-02-14] MEDS: FENOFIBRATE 48 MG TAB PO (09:00)
[2019-02-14] MEDS: MAGNESIUM OXIDE 400 MG TAB PO ×2 (09:00)
[2019-02-14] MEDS: ASPIRIN (EC) 81 MG TAB PO (09:01)
[2019-02-14] MEDS: CLOPIDOGREL 75 MG TAB PO (11:15)
[2019-02-14] MEDS: ENOXAPARIN 40 MG/0.4 ML SYG SC (11:18)
[2019-02-14] MEDS: LINAGLIPTIN 5 MG TABLET PO (11:27)
[2019-02-14] MEDS: MAGNESIUM SULFATE 2 GM/50 ML 50 ML IVPB (14:17)
[2019-02-14] MEDS: ALTEPLASE (CATHFLO) 2 MG INJ CATHETER (16:09)
[2019-02-14] MEDS: INSULIN GLARGINE [LANTus] (100 UNITS/ML) SYG SC (21:00)
[2019-02-14] MEDS: ATORVASTATIN 20 MG TAB PO (21:06)
[2019-02-15] MEDS: VANCOMYCIN 500 MG (PMX) 100 ML IVPB ×2 (01:23→13:26)
[2019-02-15] MEDS: HYDROmorphONE 2 MG/ML SYG IV ×3 (05:50→18:12)
[2019-02-15] MEDS: PIPER-TAZO 2.25 GM (PMX) 50 ML IVPB ×3 (05:50→18:10)
[2019-02-15] MEDS: PANTOPRAZOLE (EC) 40 MG TAB PO (05:50)
[2019-02-15 05:57] LABS: ADD MAN DIFF? NO
[2019-02-15 05:58] LABS: WHITE BLOOD COUNT 7.7 10^3/ul (4.8-10.8)
[2019-02-15 05:58] LABS: BASOPHIL # 0.1 10^3/ul (0.0-0.1); BASOPHILS % 0.6 % (0.0-2.0); EOSINOPHILS # 0.6 10^3/ul (0.0-0.5); EOSINOPHILS % 7.6 % (0.0-7.0); HEMATOCRIT 29.6 % (37.0-47.0); HEMOGLOBIN 9.1 g/dl (12.0-16.0); LYMPHOCYTES # 1.3 10^3/ul (0.8-2.9); LYMPHOCYTES % 17.1 % (15.0-51.0); MEAN CORPUSCULAR HEMOGLOBIN 28.3 pg (29.0-33.0); MEAN CORPUSCULAR HGB CONC 30.7 g/dl (32.0-37.0); MEAN CORPUSCULAR VOLUME 92.2 fl (82.0-101.0); MONOCYTE # 0.7 10^3/ul (0.3-0.9); MONOCYTES % 8.9 % (0.0-11.0); NEUTROPHIL # 5.1 10^3/ul (1.6-7.5); NEUTROPHILS % 65.5 % (39.0-77.0); PLATELET COUNT 303 10^3/UL (140-415); RED BLOOD COUNT 3.21 10^6/ul (4.20-5.40); RED CELL DISTRIBUTION WIDTH 14.1 % (11.5-14.5)
[2019-02-15] MEDS: ACCU-CHEK XX ×4 (07:30→21:00)
[2019-02-15] MEDS: MAGNESIUM OXIDE 400 MG TAB PO (09:00)
[2019-02-15] MEDS: LUBIPROSTONE 24 MCG CAP PO ×3 (09:00→21:00)
[2019-02-15] MEDS: predniSONE 1 MG TAB PO (09:44)
[2019-02-15] MEDS: ASPIRIN (EC) 81 MG TAB PO (09:45)
[2019-02-15] MEDS: CLOPIDOGREL 75 MG TAB PO (09:46)
[2019-02-15] MEDS: LINAGLIPTIN 5 MG TABLET PO (09:46)
[2019-02-15] MEDS: oxyCODONE (CR) 40 MG TAB [oxyCONTIN] PO ×3 (09:47→20:58)
[2019-02-15] MEDS: FENOFIBRATE 48 MG TAB PO (09:47)
[2019-02-15] MEDS: AMLODIPINE 5 MG TAB PO (09:48)
[2019-02-15] MEDS: ENOXAPARIN 40 MG/0.4 ML SYG SC (09:53)
[2019-02-15] MEDS: MAGNESIUM HYDROXIDE 30ML CUP PO (09:54)
[2019-02-15 13:01] LABS: VANCOMYCIN,TROUGH 12.1 ug/ml (10.0-20.0)
[2019-02-15] MEDS: ATORVASTATIN 20 MG TAB PO (20:59)
[2019-02-15] MEDS: INSULIN GLARGINE [LANTus] (100 UNITS/ML) SYG SC (22:04)
[2019-02-15] MEDS: INSULIN ASPART [NOVOLOG] 3 ML PEN SC (22:06)
[2019-02-16] MEDS: HYDROmorphONE 2 MG/ML SYG IV ×4 (00:48→19:04)
[2019-02-16] MEDS: VANCOMYCIN 500 MG (PMX) 100 ML IVPB ×2 (01:32→13:09)
[2019-02-16] MEDS: ACCU-CHEK XX ×5 (02:00→21:02)
[2019-02-16 05:42] LABS: ADD MAN DIFF? NO
[2019-02-16 05:48] LABS: BASOPHIL # 0.1 10^3/ul (0.0-0.1); BASOPHILS % 0.6 % (0.0-2.0); EOSINOPHILS # 0.7 10^3/ul (0.0-0.5); EOSINOPHILS % 8.6 % (0.0-7.0); HEMATOCRIT 29.3 % (37.0-47.0); HEMOGLOBIN 8.9 g/dl (12.0-16.0); LYMPHOCYTES # 1.3 10^3/ul (0.8-2.9); LYMPHOCYTES % 15.6 % (15.0-51.0); MEAN CORPUSCULAR HEMOGLOBIN 28.5 pg (29.0-33.0); MEAN CORPUSCULAR HGB CONC 30.4 g/dl (32.0-37.0); MEAN CORPUSCULAR VOLUME 93.9 fl (82.0-101.0); MEAN PLATELET VOLUME 9.2 fl (7.4-10.4); MONOCYTE # 0.6 10^3/ul (0.3-0.9); MONOCYTES % 7.6 % (0.0-11.0); NEUTROPHIL # 5.5 10^3/ul (1.6-7.5); NEUTROPHILS % 67.4 % (39.0-77.0); PLATELET COUNT 297 10^3/UL (140-415); RED BLOOD COUNT 3.12 10^6/ul (4.20-5.40); RED CELL DISTRIBUTION WIDTH 14.2 % (11.5-14.5)
[2019-02-16 05:48] LABS: WHITE BLOOD COUNT 8.2 10^3/ul (4.8-10.8)
[2019-02-16 06:18] LABS: ANION GAP 3 (5-13); BLOOD UREA NITROGEN 19 mg/dl (7-20); CALCIUM 8.5 mg/dl (8.4-10.2); CARBON DIOXIDE 27 mmol/L (21-31); CHLORIDE 112 mmol/L (97-110); CREATININE 0.73 mg/dl (0.44-1.00); Estimated GFR > 60 mL/min (>60); GLUCOSE 123 mg/dl (70-220); MAGNESIUM 1.8 mg/dl (1.7-2.5); PHOSPHORUS 3.3 mg/dl (2.5-4.9); POTASSIUM 4.4 mmol/L (3.5-5.1); SODIUM 142 mmol/L (135-144)
[2019-02-16] MEDS: PANTOPRAZOLE (EC) 40 MG TAB PO (06:18)
[2019-02-16] MEDS: INSULIN ASPART [NOVOLOG] 3 ML PEN SC ×4 (08:00→21:00)
[2019-02-16] MEDS: LUBIPROSTONE 24 MCG CAP PO ×2 (08:39→21:01)
[2019-02-16] MEDS: LINAGLIPTIN 5 MG TABLET PO (08:39)
[2019-02-16] MEDS: predniSONE 1 MG TAB PO (08:39)
[2019-02-16] MEDS: FENOFIBRATE 48 MG TAB PO (08:39)
[2019-02-16] MEDS: CLOPIDOGREL 75 MG TAB PO (08:39)
[2019-02-16] MEDS: oxyCODONE (CR) 40 MG TAB [oxyCONTIN] PO ×3 (08:39→21:02)
[2019-02-16] MEDS: AMLODIPINE 5 MG TAB PO (08:40)
[2019-02-16] MEDS: ASPIRIN (EC) 81 MG TAB PO (08:40)
[2019-02-16] MEDS: ENOXAPARIN 40 MG/0.4 ML SYG SC (08:46)
[2019-02-16] MEDS: MAGNESIUM OXIDE 400 MG TAB PO (09:00)
[2019-02-16] MEDS: MAGNESIUM HYDROXIDE 30ML CUP PO (09:00)
[2019-02-16] MEDS: ONDANSETRON 4 MG TAB PO (12:58)
[2019-02-16] MEDS: INSULIN GLARGINE [LANTus] (100 UNITS/ML) SYG SC (21:01)
[2019-02-16] MEDS: ATORVASTATIN 20 MG TAB PO (21:01)
[2019-02-17] MEDS: HYDROmorphONE 2 MG/ML SYG IV ×4 (00:53→19:51)
[2019-02-17] MEDS: VANCOMYCIN 500 MG (PMX) 100 ML IVPB ×2 (00:54→13:38)
[2019-02-17] MEDS: ACCU-CHEK XX ×5 (02:00→21:00)
[2019-02-17] MEDS: PANTOPRAZOLE (EC) 40 MG TAB PO (06:48)
[2019-02-17] MEDS: INSULIN ASPART [NOVOLOG] 3 ML PEN SC ×4 (08:00→21:00)
[2019-02-17] MEDS: ENOXAPARIN 40 MG/0.4 ML SYG SC (08:23)
[2019-02-17] MEDS: predniSONE 1 MG TAB PO (08:25)
[2019-02-17] MEDS: LINAGLIPTIN 5 MG TABLET PO (08:26)
[2019-02-17] MEDS: oxyCODONE (CR) 40 MG TAB [oxyCONTIN] PO ×4 (08:26→21:08)
[2019-02-17] MEDS: CLOPIDOGREL 75 MG TAB PO (08:26)
[2019-02-17] MEDS: ASPIRIN (EC) 81 MG TAB PO (08:26)
[2019-02-17] MEDS: MAGNESIUM OXIDE 400 MG TAB PO (08:26)
[2019-02-17] MEDS: AMLODIPINE 5 MG TAB PO (08:29)
[2019-02-17] MEDS: FENOFIBRATE 48 MG TAB PO (08:29)
[2019-02-17] MEDS: MAGNESIUM HYDROXIDE 30ML CUP PO (08:31)
[2019-02-17] MEDS: LUBIPROSTONE 24 MCG CAP PO ×2 (08:31→21:07)
[2019-02-17] MEDS: ATORVASTATIN 20 MG TAB PO (21:08)
[2019-02-17] MEDS: INSULIN GLARGINE [LANTus] (100 UNITS/ML) SYG SC (21:12)
[2019-02-18] MEDS: VANCOMYCIN 500 MG (PMX) 100 ML IVPB ×2 (01:30→14:19)
[2019-02-18] MEDS: HYDROmorphONE 2 MG/ML SYG IV ×4 (01:33→20:38)
[2019-02-18] MEDS: ONDANSETRON 4 MG TAB PO ×2 (01:41→05:40)
[2019-02-18] MEDS: ACCU-CHEK XX ×5 (02:00→20:46)
[2019-02-18] MEDS: PANTOPRAZOLE (EC) 40 MG TAB PO (05:38)
[2019-02-18] MEDS: INSULIN ASPART [NOVOLOG] 3 ML PEN SC ×4 (08:00→20:45)
[2019-02-18] MEDS: predniSONE 1 MG TAB PO (08:12)
[2019-02-18] MEDS: LUBIPROSTONE 24 MCG CAP PO ×2 (08:14→20:37)
[2019-02-18] MEDS: CLOPIDOGREL 75 MG TAB PO (08:14)
[2019-02-18] MEDS: ASPIRIN (EC) 81 MG TAB PO (08:14)
[2019-02-18] MEDS: LINAGLIPTIN 5 MG TABLET PO (08:14)
[2019-02-18] MEDS: MAGNESIUM OXIDE 400 MG TAB PO (08:14)
[2019-02-18] MEDS: FENOFIBRATE 48 MG TAB PO (08:14)
[2019-02-18] MEDS: AMLODIPINE 5 MG TAB PO (08:15)
[2019-02-18] MEDS: MAGNESIUM HYDROXIDE 30ML CUP PO (08:15)
[2019-02-18] MEDS: ENOXAPARIN 40 MG/0.4 ML SYG SC (08:16)
[2019-02-18 08:25] LABS: ADD MAN DIFF? NO
[2019-02-18 08:31] LABS: WHITE BLOOD COUNT 9.5 10^3/ul (4.8-10.8)
[2019-02-18 08:31] LABS: BASOPHIL # 0.1 10^3/ul (0.0-0.1); BASOPHILS % 0.6 % (0.0-2.0); EOSINOPHILS # 0.8 10^3/ul (0.0-0.5); EOSINOPHILS % 8.5 % (0.0-7.0); HEMATOCRIT 29.9 % (37.0-47.0); LYMPHOCYTES # 1.4 10^3/ul (0.8-2.9); LYMPHOCYTES % 14.8 % (15.0-51.0); MEAN CORPUSCULAR HEMOGLOBIN 27.8 pg (29.0-33.0); MEAN CORPUSCULAR HGB CONC 30.1 g/dl (32.0-37.0); MEAN CORPUSCULAR VOLUME 92.3 fl (82.0-101.0); MEAN PLATELET VOLUME 8.9 fl (7.4-10.4); MONOCYTE # 0.9 10^3/ul (0.3-0.9); MONOCYTES % 9.1 % (0.0-11.0); NEUTROPHIL # 6.4 10^3/ul (1.6-7.5); NEUTROPHILS % 66.7 % (39.0-77.0); PLATELET COUNT 310 10^3/UL (140-415); RED BLOOD COUNT 3.24 10^6/ul (4.20-5.40); RED CELL DISTRIBUTION WIDTH 14.2 % (11.5-14.5)
[2019-02-18 08:54] LABS: ANION GAP 6 (5-13); BLOOD UREA NITROGEN 17 mg/dl (7-20); CALCIUM 8.7 mg/dl (8.4-10.2); CARBON DIOXIDE 25 mmol/L (21-31); CHLORIDE 110 mmol/L (97-110); CREATININE 0.63 mg/dl (0.44-1.00); Estimated GFR > 60 mL/min (>60); GLUCOSE 111 mg/dl (70-220); MAGNESIUM 1.7 mg/dl (1.7-2.5); PHOSPHORUS 3.7 mg/dl (2.5-4.9); POTASSIUM 4.1 mmol/L (3.5-5.1); SODIUM 141 mmol/L (135-144)
[2019-02-18] MEDS: oxyCODONE (CR) 40 MG TAB [oxyCONTIN] PO ×3 (09:32→22:30)
[2019-02-18 12:23] LABS: VANCOMYCIN,TROUGH 15.1 ug/ml (10.0-20.0)
[2019-02-18] MEDS: ATORVASTATIN 20 MG TAB PO (20:37)
[2019-02-18] MEDS: INSULIN GLARGINE [LANTus] (100 UNITS/ML) SYG SC (20:44)
[2019-02-19] MEDS: VANCOMYCIN 500 MG (PMX) 100 ML IVPB ×2 (01:58→12:26)
[2019-02-19] MEDS: ACCU-CHEK XX ×5 (01:58→20:32)
[2019-02-19] MEDS: HYDROmorphONE 2 MG/ML SYG IV ×4 (02:39→22:42)
[2019-02-19] MEDS: PANTOPRAZOLE (EC) 40 MG TAB PO (06:01)
[2019-02-19] MEDS: INSULIN ASPART [NOVOLOG] 3 ML PEN SC ×4 (08:00→20:32)
[2019-02-19] MEDS: ASPIRIN (EC) 81 MG TAB PO (08:59)
[2019-02-19] MEDS: predniSONE 1 MG TAB PO (08:59)
[2019-02-19] MEDS: MAGNESIUM OXIDE 400 MG TAB PO (09:00)
[2019-02-19] MEDS: CLOPIDOGREL 75 MG TAB PO (09:00)
[2019-02-19] MEDS: MAGNESIUM HYDROXIDE 30ML CUP PO (09:00)
[2019-02-19] MEDS: FENOFIBRATE 48 MG TAB PO (09:00)
[2019-02-19] MEDS: AMLODIPINE 5 MG TAB PO (09:00)
[2019-02-19] MEDS: LINAGLIPTIN 5 MG TABLET PO (09:00)
[2019-02-19] MEDS: LUBIPROSTONE 24 MCG CAP PO ×2 (09:01→20:23)
[2019-02-19] MEDS: oxyCODONE (CR) 40 MG TAB [oxyCONTIN] PO ×3 (09:01→20:24)
[2019-02-19] MEDS: ENOXAPARIN 40 MG/0.4 ML SYG SC (09:02)
[2019-02-19] MEDS: ATORVASTATIN 20 MG TAB PO (20:23)
[2019-02-19] MEDS: INSULIN GLARGINE [LANTus] (100 UNITS/ML) SYG SC (20:25)
[2019-02-20] MEDS: VANCOMYCIN 500 MG (PMX) 100 ML IVPB ×2 (00:40→12:19)
[2019-02-20] MEDS: ACCU-CHEK XX ×3 (02:00→11:30)
[2019-02-20] MEDS: HYDROmorphONE 2 MG/ML SYG IV ×2 (04:45→11:11)
[2019-02-20] MEDS: PANTOPRAZOLE (EC) 40 MG TAB PO (05:44)
[2019-02-20] MEDS: INSULIN ASPART [NOVOLOG] 3 ML PEN SC ×2 (08:00→12:14)
[2019-02-20] MEDS: LINAGLIPTIN 5 MG TABLET PO (08:10)
[2019-02-20] MEDS: predniSONE 1 MG TAB PO (08:10)
[2019-02-20] MEDS: MAGNESIUM OXIDE 400 MG TAB PO ×2 (08:10→08:25)
[2019-02-20] MEDS: FENOFIBRATE 48 MG TAB PO (08:10)
[2019-02-20] MEDS: CLOPIDOGREL 75 MG TAB PO (08:10)
[2019-02-20] MEDS: LUBIPROSTONE 24 MCG CAP PO ×2 (08:10→08:25)
[2019-02-20] MEDS: oxyCODONE (CR) 40 MG TAB [oxyCONTIN] PO ×2 (08:11→12:19)
[2019-02-20] MEDS: ASPIRIN (EC) 81 MG TAB PO (08:11)
[2019-02-20] MEDS: ENOXAPARIN 40 MG/0.4 ML SYG SC (08:12)
[2019-02-20] MEDS: MAGNESIUM HYDROXIDE 30ML CUP PO ×2 (08:14→08:25)
[2019-02-20] MEDS: AMLODIPINE 5 MG TAB PO (08:19)
[2019-02-20] MEDS: ONDANSETRON 4 MG TAB PO (14:23)
== END 2019-02-20 16:53 | disposition home health service (06) | DRG 560 ==
LOC: E/R 21:28 → PP2 02-13 13:59
PROC: 0S9D3ZZ Drainage of Left Knee Joint, Percutaneous Approach (ICD-10-PCS; principal; 2019-02-13)
DX: T84.54XA Infection and inflammatory reaction due to internal left knee prosthesis, initial encounter (principal); M00.062 Staphylococcal arthritis, left knee; M06.9 Rheumatoid arthritis, unspecified; E78.5 Hyperlipidemia, unspecified; I10 Essential (primary) hypertension; G89.4 Chronic pain syndrome; D64.9 Anemia, unspecified; K59.00 Constipation, unspecified; B95.62 Methicillin resistant Staphylococcus aureus infection as the cause of diseases classified elsewhere; E09.51 Drug or chemical induced diabetes mellitus with diabetic peripheral angiopathy without gangrene; Z96.651 Presence of right artificial knee joint; Z96.642 Presence of left artificial hip joint; T38.0X5A Adverse effect of glucocorticoids and synthetic analogues, initial encounter; Z86.718 Personal history of other venous thrombosis and embolism; Z95.9 Presence of cardiac and vascular implant and graft, unspecified; Y83.2 Surgical operation with anastomosis, bypass or graft as the cause of abnormal reaction of the patient, or of later complication, without mention of misadventure at the time of the procedure
CPT/HCPCS: 73550; 73562; 73590; 73700; 80048; 80053; 80202; 81001; 82962; 83690; 83735; 84100; 85025; 85651; 86140; 87040-91; 87070; 87075; 89060

== ENCOUNTER 2019-04-19 19:09 | Inpatient (IN) | payer MEDICARE, BC ==
[2019-04-19] MEDS: morphine 4 MG/ML VIAL IV (19:34)
[2019-04-19] MEDS: PIPER-TAZO 3.375 GM IV (PMX) 100 ML IVPB (19:34)
[2019-04-19] MEDS: ONDANSETRON 4 MG INJ IV (19:34)
[2019-04-19 19:45] LABS: ADD MAN DIFF? NO
[2019-04-19 19:47] LABS: WHITE BLOOD COUNT 10.6 10^3/ul (4.8-10.8)
[2019-04-19 19:47] LABS: BASOPHIL # 0.1 10^3/ul (0.0-0.1); BASOPHILS % 0.5 % (0.0-2.0); EOSINOPHILS # 0.8 10^3/ul (0.0-0.5); EOSINOPHILS % 7.3 % (0.0-7.0); HEMATOCRIT 30.8 % (37.0-47.0); HEMOGLOBIN 9.2 g/dl (12.0-16.0); LYMPHOCYTES # 1.3 10^3/ul (0.8-2.9); LYMPHOCYTES % 11.9 % (15.0-51.0); MEAN CORPUSCULAR HEMOGLOBIN 27.6 pg (29.0-33.0); MEAN CORPUSCULAR HGB CONC 29.9 g/dl (32.0-37.0); MEAN CORPUSCULAR VOLUME 92.5 fl (82.0-101.0); MEAN PLATELET VOLUME 9.1 fl (7.4-10.4); MONOCYTE # 0.9 10^3/ul (0.3-0.9); MONOCYTES % 8.8 % (0.0-11.0); NEUTROPHIL # 7.6 10^3/ul (1.6-7.5); NEUTROPHILS % 71.2 % (39.0-77.0); PLATELET COUNT 335 10^3/UL (140-415); RED BLOOD COUNT 3.33 10^6/ul (4.20-5.40); RED CELL DISTRIBUTION WIDTH 15.3 % (11.5-14.5)
[2019-04-19 20:06] LABS: CARBON DIOXIDE 24 mmol/L (21-31); CHLORIDE 110 mmol/L (97-110); INR 1.11; POTASSIUM 3.4 mmol/L (3.5-5.1); PROTIME 14.4 Sec (11.9-14.9); PT RATIO 1.1; SODIUM 141 mmol/L (135-144)
[2019-04-19 20:07] LABS: ALANINE AMINOTRANSFERASE 17 IU/L (13-69); ALBUMIN 3.3 g/dl (3.3-4.9); ALBUMIN/GLOBULIN RATIO 0.94; ALKALINE PHOSPHATASE 55 IU/L (42-121); ANION GAP 7 (5-13); ASPARTATE AMINO TRANSFERASE 16 IU/L (15-46); BILIRUBIN,INDIRECT 0.4 mg/dl (0-1.1); BILIRUBIN,TOTAL 0.4 mg/dl (0.2-1.3); BLOOD UREA NITROGEN 18 mg/dl (7-20); CALCIUM 9.5 mg/dl (8.4-10.2); CREATININE 0.69 mg/dl (0.44-1.00); Estimated GFR > 60 mL/min (>60); GLUCOSE 121 mg/dl (70-220); PARTIAL THROMBOPLASTIN TIME 31.8 Sec (23.0-35.0); TOTAL PROTEIN 6.8 g/dl (6.1-8.1)
[2019-04-19 20:16] LABS: TROPONIN-I < 0.012 ng/ml (0.000-0.120)
[2019-04-19] MEDS ORDERED: ONDANSETRON 4 MG INJ IV (20:30)
[2019-04-19] MEDS ORDERED: ACETAMINOPHEN 325 MG TAB PO (20:30)
[2019-04-19] MEDS: VANCOMYCIN 1 GM (PMX) 250 ML IVPB (20:41)
[2019-04-19 21:59] LABS: LACTIC ACID 0.9 mmol/L (0.5-2.0)
[2019-04-19 22:54] LABS: C-REACTIVE PROTEIN 6.3 mg/dl (0.0-0.9)
[2019-04-19 23:37] LABS: ERYTHROCYTE SEDIMENTATION RATE 80 mm/Hr (0-30)
[2019-04-20] MEDS ORDERED: ALBUTEROL/IPRATROPIUM (NEB) 3 ML AMP HHN (01:30)
[2019-04-20] MEDS ORDERED: ACETAMINOPHEN 325 MG TAB PO (01:30)
[2019-04-20] MEDS ORDERED: VANCOMYCIN IV PER PHARMACY XX (01:30)
[2019-04-20] MEDS ORDERED: BISACODYL 10 MG SUPP PR (01:30)
[2019-04-20] MEDS ORDERED: NACL 0.9% 3 ML SYG IV (01:30)
[2019-04-20] MEDS ORDERED: GLUCOSE GEL 15 GRAM TUBE BUCCAL (02:00)
[2019-04-20] MEDS ORDERED: DEXTROSE 50% 50 ML SYRINGE IV ×2 (02:00)
[2019-04-20] MEDS ORDERED: GLUCOSE GEL 15 GRAM TUBE PO ×2 (02:00)
[2019-04-20] MEDS ORDERED: GLUCAGON 1 MG INJ IM (02:00)
[2019-04-20] MEDS: HYDROmorphONE 1 MG/ML SYG IV ×3 (02:02→17:29)
[2019-04-20] MEDS: ACCU-CHEK XX (02:08)
[2019-04-20] MEDS ORDERED: VANCOMYCIN 1 GM in 250 ML IVPB (02:30)
[2019-04-20] MEDS: PIPER-TAZO 3.375 GM IV (PMX) 100 ML IVPB ×4 (06:40→23:51)
[2019-04-20] MEDS: INSULIN ASPART [NOVOLOG] 3 ML PEN SC ×4 (07:50→21:00)
[2019-04-20] MEDS: FENOFIBRATE 48 MG TAB PO (09:25)
[2019-04-20] MEDS: MAGNESIUM HYDROXIDE 30ML CUP PO (09:26)
[2019-04-20] MEDS: BETHANECHOL 25 MG TAB PO (09:26)
[2019-04-20] MEDS: MAGNESIUM OXIDE 400 MG TAB PO (09:26)
[2019-04-20] MEDS: oxyCODONE (CR) 20 MG TAB [oxyCONTIN] PO ×3 (09:26→20:33)
[2019-04-20] MEDS: LUBIPROSTONE 24 MCG CAP PO ×2 (09:26→20:34)
[2019-04-20] MEDS: AMLODIPINE 5 MG TAB PO (09:26)
[2019-04-20] MEDS: VANCOMYCIN 500 MG (PMX) 100 ML IVPB (12:59)
[2019-04-20] MEDS: ASPIRIN (EC) 81 MG TAB PO (15:45)
[2019-04-20] MEDS: CLOPIDOGREL 75 MG TAB PO (15:45)
[2019-04-20] MEDS: predniSONE 1 MG TAB PO (15:45)
[2019-04-20] MEDS: ENOXAPARIN 40 MG/0.4 ML SYG SC (15:49)
[2019-04-20] MEDS: oxyCODONE 5 MG TAB PO (19:44)
[2019-04-20] MEDS: ATORVASTATIN 20 MG TAB PO (20:34)
[2019-04-20] MEDS: INSULIN GLARGINE [LANTus] (100 UNITS/ML) SYG SC (20:43)
[2019-04-21] MEDS: oxyCODONE 5 MG TAB PO ×2 (00:21→04:44)
[2019-04-21] MEDS: VANCOMYCIN 500 MG (PMX) 100 ML IVPB ×2 (00:26→12:05)
[2019-04-21] MEDS: ALTEPLASE (CATHFLO) 2 MG INJ CATHETER (01:15)
[2019-04-21] MEDS: HYDROmorphONE 1 MG/ML SYG IV ×4 (01:49→23:39)
[2019-04-21] MEDS: ACCU-CHEK XX (02:00)
[2019-04-21] MEDS ORDERED: VANCOMYCIN 750 MG (PMX) 250 ML IVPB (02:30)
[2019-04-21 04:56] LABS: ADD MAN DIFF? NO
[2019-04-21 05:02] LABS: ABNORMAL IP MESSAGE 1; BASOPHILS % 0.4 % (0.0-2.0); EOSINOPHILS # 0.5 10^3/ul (0.0-0.5); EOSINOPHILS % 5.5 % (0.0-7.0); HEMATOCRIT 27.1 % (37.0-47.0); HEMOGLOBIN 7.8 g/dl (12.0-16.0); LYMPHOCYTES # 1.2 10^3/ul (0.8-2.9); LYMPHOCYTES % 14.5 % (15.0-51.0); MEAN CORPUSCULAR HEMOGLOBIN 27.1 pg (29.0-33.0); MEAN CORPUSCULAR HGB CONC 28.8 g/dl (32.0-37.0); MEAN CORPUSCULAR VOLUME 94.1 fl (82.0-101.0); MEAN PLATELET VOLUME 9.1 fl (7.4-10.4); MONOCYTE # 0.8 10^3/ul (0.3-0.9); MONOCYTES % 9.4 % (0.0-11.0); NEUTROPHIL # 5.9 10^3/ul (1.6-7.5); NEUTROPHILS % 69.7 % (39.0-77.0); PLATELET COUNT 280 10^3/UL (140-415); RED BLOOD COUNT 2.88 10^6/ul (4.20-5.40); RED CELL DISTRIBUTION WIDTH 15.3 % (11.5-14.5)
[2019-04-21 05:02] LABS: WHITE BLOOD COUNT 8.4 10^3/ul (4.8-10.8)
[2019-04-21 05:18] LABS: POSITIVE DIFF @See below
[2019-04-21 05:23] LABS: PHOSPHORUS 3.7 mg/dl (2.5-4.9)
[2019-04-21 05:45] LABS: ALANINE AMINOTRANSFERASE 21 IU/L (13-69); ALBUMIN 2.5 g/dl (3.3-4.9); ALBUMIN/GLOBULIN RATIO 0.86; ALKALINE PHOSPHATASE 41 IU/L (42-121); ANION GAP 5 (5-13); ASPARTATE AMINO TRANSFERASE 13 IU/L (15-46); BILIRUBIN,INDIRECT 0.2 mg/dl (0-1.1); BILIRUBIN,TOTAL 0.2 mg/dl (0.2-1.3); BLOOD UREA NITROGEN 21 mg/dl (7-20); CALCIUM 8.7 mg/dl (8.4-10.2); CARBON DIOXIDE 22 mmol/L (21-31); CHLORIDE 114 mmol/L (97-110); CREATININE 0.88 mg/dl (0.44-1.00); Estimated GFR > 60 mL/min (>60); GLUCOSE 99 mg/dl (70-220); MAGNESIUM 1.5 mg/dl (1.7-2.5); POTASSIUM 3.8 mmol/L (3.5-5.1); SODIUM 141 mmol/L (135-144); TOTAL PROTEIN 5.4 g/dl (6.1-8.1)
[2019-04-21] MEDS: PIPER-TAZO 3.375 GM IV (PMX) 100 ML IVPB ×4 (06:46→23:37)
[2019-04-21 07:55] LABS: HEMOGLOBIN A1C 6.3 % (0-5.9)
[2019-04-21] MEDS: MAGNESIUM HYDROXIDE 30ML CUP PO (08:15)
[2019-04-21] MEDS: INSULIN ASPART [NOVOLOG] 3 ML PEN SC ×4 (09:05→21:00)
[2019-04-21] MEDS: ENOXAPARIN 40 MG/0.4 ML SYG SC (09:07)
[2019-04-21] MEDS: LUBIPROSTONE 24 MCG CAP PO ×3 (09:08→21:35)
[2019-04-21] MEDS: FENOFIBRATE 48 MG TAB PO (09:08)
[2019-04-21] MEDS: BETHANECHOL 25 MG TAB PO (09:08)
[2019-04-21] MEDS: AMLODIPINE 5 MG TAB PO (09:12)
[2019-04-21] MEDS: CLOPIDOGREL 75 MG TAB PO (09:12)
[2019-04-21] MEDS: oxyCODONE (CR) 20 MG TAB [oxyCONTIN] PO ×3 (09:13→21:35)
[2019-04-21] MEDS: predniSONE 1 MG TAB PO (09:14)
[2019-04-21] MEDS: ASPIRIN (EC) 81 MG TAB PO (09:15)
[2019-04-21] MEDS: MAGNESIUM OXIDE 400 MG TAB PO (09:16)
[2019-04-21] MEDS: MAGNESIUM SULFATE 3 GM in DEXTROSE 5% 100 ML IVPB (12:05)
[2019-04-21 12:39] LABS: HEMATOCRIT 25.8 % (37.0-47.0); HEMOGLOBIN 7.7 g/dl (12.0-16.0)
[2019-04-21] MEDS: metroNIDAZOLE 500 MG/NS (PMX) 100 ML IVPB ×2 (14:03→21:38)
[2019-04-21] MEDS: VANCOMYCIN HCL 250 MG/5ML POSYG PO ×2 (14:06→17:46)
[2019-04-21] MEDS: ONDANSETRON 4 MG INJ IV (17:34)
[2019-04-21] MEDS: ATORVASTATIN 20 MG TAB PO (21:36)
[2019-04-21] MEDS: NYSTATIN 30 GM POWDER BTL TOP (21:39)
[2019-04-21] MEDS: INSULIN GLARGINE [LANTus] (100 UNITS/ML) SYG SC (22:14)
[2019-04-22 00:23] LABS: VANCOMYCIN,TROUGH 14.7 ug/ml (10.0-20.0)
[2019-04-22] MEDS: VANCOMYCIN 500 MG (PMX) 100 ML IVPB ×3 (00:50→22:53)
[2019-04-22] MEDS: VANCOMYCIN HCL 250 MG/5ML POSYG PO ×5 (00:50→22:53)
[2019-04-22] MEDS: ACCU-CHEK XX (01:24)
[2019-04-22] MEDS: metroNIDAZOLE 500 MG/NS (PMX) 100 ML IVPB ×3 (05:19→20:56)
[2019-04-22] MEDS: PIPER-TAZO 3.375 GM IV (PMX) 100 ML IVPB ×2 (05:19→12:15)
[2019-04-22 05:25] LABS: ADD MAN DIFF? NO
[2019-04-22 05:35] LABS: WHITE BLOOD COUNT 5.8 10^3/ul (4.8-10.8)
[2019-04-22 05:35] LABS: BASOPHILS % 0.5 % (0.0-2.0); EOSINOPHILS # 0.6 10^3/ul (0.0-0.5); EOSINOPHILS % 10.5 % (0.0-7.0); HEMOGLOBIN 7.4 g/dl (12.0-16.0); LYMPHOCYTES # 1.1 10^3/ul (0.8-2.9); LYMPHOCYTES % 19.6 % (15.0-51.0); MEAN CORPUSCULAR HEMOGLOBIN 27.1 pg (29.0-33.0); MEAN CORPUSCULAR HGB CONC 29.6 g/dl (32.0-37.0); MEAN CORPUSCULAR VOLUME 91.6 fl (82.0-101.0); MEAN PLATELET VOLUME 9.2 fl (7.4-10.4); MONOCYTE # 0.6 10^3/ul (0.3-0.9); MONOCYTES % 9.6 % (0.0-11.0); NEUTROPHIL # 3.5 10^3/ul (1.6-7.5); NEUTROPHILS % 59.5 % (39.0-77.0); PLATELET COUNT 273 10^3/UL (140-415); RED BLOOD COUNT 2.73 10^6/ul (4.20-5.40); RED CELL DISTRIBUTION WIDTH 15.2 % (11.5-14.5)
[2019-04-22 06:02] LABS: ANION GAP 2 (5-13); BLOOD UREA NITROGEN 17 mg/dl (7-20); CALCIUM 8.5 mg/dl (8.4-10.2); CARBON DIOXIDE 26 mmol/L (21-31); CHLORIDE 113 mmol/L (97-110); CREATININE 0.79 mg/dl (0.44-1.00); Estimated GFR > 60 mL/min (>60); GLUCOSE 58 mg/dl (70-220); PHOSPHORUS 3.5 mg/dl (2.5-4.9); POTASSIUM 3.5 mmol/L (3.5-5.1); SODIUM 141 mmol/L (135-144)
[2019-04-22] MEDS: HYDROmorphONE 1 MG/ML SYG IV ×3 (06:26→18:50)
[2019-04-22] MEDS: INSULIN ASPART [NOVOLOG] 3 ML PEN SC ×4 (07:50→21:00)
[2019-04-22 08:13] LABS: RETICULOCYTE RBC 2.68
[2019-04-22 08:13] LABS: RETICULOCYTE COUNT # 0.026 X10^6 (0.020-0.110)
[2019-04-22 08:14] LABS: IRON 19 ug/dl (35-150)
[2019-04-22 08:23] LABS: % IRON SATURATION 8 % SAT (22-52); TOTAL IRON BINDING CAPACITY 249 ug/dl (241-421)
[2019-04-22] MEDS: FENOFIBRATE 48 MG TAB PO (08:44)
[2019-04-22] MEDS: ASPIRIN (EC) 81 MG TAB PO (08:45)
[2019-04-22] MEDS: CLOPIDOGREL 75 MG TAB PO (08:45)
[2019-04-22] MEDS: BETHANECHOL 25 MG TAB PO (08:45)
[2019-04-22] MEDS: NYSTATIN 30 GM POWDER BTL TOP (08:45)
[2019-04-22] MEDS: MAGNESIUM OXIDE 400 MG TAB PO ×2 (08:45→08:49)
[2019-04-22] MEDS: AMLODIPINE 5 MG TAB PO (08:46)
[2019-04-22] MEDS: predniSONE 1 MG TAB PO (08:46)
[2019-04-22] MEDS: ENOXAPARIN 40 MG/0.4 ML SYG SC (08:47)
[2019-04-22] MEDS: LUBIPROSTONE 24 MCG CAP PO ×2 (08:48→20:58)
[2019-04-22] MEDS: MAGNESIUM HYDROXIDE 30ML CUP PO (08:48)
[2019-04-22] MEDS: oxyCODONE (CR) 20 MG TAB [oxyCONTIN] PO ×3 (08:51→20:57)
[2019-04-22] MEDS: oxyCODONE 5 MG TAB PO ×3 (08:58→17:17)
[2019-04-22] MEDS: ATORVASTATIN 20 MG TAB PO (20:58)
[2019-04-22] MEDS: ONDANSETRON 4 MG INJ IV (23:14)
[2019-04-23] MEDS: HYDROmorphONE 1 MG/ML SYG IV ×4 (01:34→20:33)
[2019-04-23] MEDS: ACCU-CHEK XX (01:44)
[2019-04-23] MEDS: metroNIDAZOLE 500 MG/NS (PMX) 100 ML IVPB ×3 (05:25→21:55)
[2019-04-23] MEDS: VANCOMYCIN HCL 250 MG/5ML POSYG PO ×3 (05:25→20:31)
[2019-04-23 06:30] LABS: ADD MAN DIFF? NO
[2019-04-23 06:42] LABS: BASOPHILS % 0.6 % (0.0-2.0); EOSINOPHILS # 0.7 10^3/ul (0.0-0.5); EOSINOPHILS % 10.6 % (0.0-7.0); HEMATOCRIT 25.7 % (37.0-47.0); HEMOGLOBIN 7.7 g/dl (12.0-16.0); LYMPHOCYTES # 1.4 10^3/ul (0.8-2.9); LYMPHOCYTES % 20.8 % (15.0-51.0); MEAN CORPUSCULAR HEMOGLOBIN 27.7 pg (29.0-33.0); MEAN CORPUSCULAR VOLUME 92.4 fl (82.0-101.0); MEAN PLATELET VOLUME 9.1 fl (7.4-10.4); MONOCYTE # 0.7 10^3/ul (0.3-0.9); MONOCYTES % 10.2 % (0.0-11.0); NEUTROPHIL # 3.7 10^3/ul (1.6-7.5); NEUTROPHILS % 57.5 % (39.0-77.0); PLATELET COUNT 293 10^3/UL (140-415); RED BLOOD COUNT 2.78 10^6/ul (4.20-5.40); RED CELL DISTRIBUTION WIDTH 15.2 % (11.5-14.5)
[2019-04-23 06:42] LABS: WHITE BLOOD COUNT 6.5 10^3/ul (4.8-10.8)
[2019-04-23 06:59] LABS: ANION GAP 5 (5-13); BLOOD UREA NITROGEN 15 mg/dl (7-20); CALCIUM 8.1 mg/dl (8.4-10.2); CARBON DIOXIDE 23 mmol/L (21-31); CHLORIDE 112 mmol/L (97-110); CREATININE 0.68 mg/dl (0.44-1.00); Estimated GFR > 60 mL/min (>60); GLUCOSE 65 mg/dl (70-220); MAGNESIUM 1.6 mg/dl (1.7-2.5); POTASSIUM 3.4 mmol/L (3.5-5.1); SODIUM 140 mmol/L (135-144)
[2019-04-23] MEDS: INSULIN ASPART [NOVOLOG] 3 ML PEN SC ×4 (07:50→20:51)
[2019-04-23] MEDS: AMLODIPINE 5 MG TAB PO (08:34)
[2019-04-23] MEDS: ASPIRIN (EC) 81 MG TAB PO (08:35)
[2019-04-23] MEDS: CLOPIDOGREL 75 MG TAB PO (08:35)
[2019-04-23] MEDS: predniSONE 1 MG TAB PO (08:35)
[2019-04-23] MEDS: FENOFIBRATE 48 MG TAB PO (08:36)
[2019-04-23] MEDS: POTASSIUM CHLORIDE (SR) 20 MEQ TAB PO (08:37)
[2019-04-23] MEDS: MAGNESIUM OXIDE 400 MG TAB PO (08:37)
[2019-04-23] MEDS: FERROUS SULFATE (EC) 325 MG TAB PO ×3 (08:37→20:34)
[2019-04-23] MEDS: LUBIPROSTONE 24 MCG CAP PO ×2 (08:37→20:34)
[2019-04-23] MEDS: MAGNESIUM HYDROXIDE 30ML CUP PO (08:37)
[2019-04-23] MEDS: BETHANECHOL 25 MG TAB PO (08:38)
[2019-04-23] MEDS: oxyCODONE (CR) 20 MG TAB [oxyCONTIN] PO ×3 (08:38→21:54)
[2019-04-23] MEDS: ENOXAPARIN 40 MG/0.4 ML SYG SC (08:39)
[2019-04-23] MEDS: MAGNESIUM SULFATE 2 GM/50 ML 50 ML IVPB (08:40)
[2019-04-23] MEDS: oxyCODONE 5 MG TAB PO ×2 (11:41→17:45)
[2019-04-23 12:13] LABS: OCCULT BLOOD STOOL NEGATIVE (NEGATIVE)
[2019-04-23] MEDS: VANCOMYCIN 500 MG (PMX) 100 ML IVPB (12:42)
[2019-04-23] MEDS: ATORVASTATIN 20 MG TAB PO (20:34)
[2019-04-24] MEDS: ONDANSETRON 4 MG INJ IV ×3 (00:23→20:24)
[2019-04-24] MEDS: VANCOMYCIN 500 MG (PMX) 100 ML IVPB ×2 (00:23→13:06)
[2019-04-24] MEDS: ACCU-CHEK XX (02:00)
[2019-04-24] MEDS: HYDROmorphONE 1 MG/ML SYG IV ×4 (03:07→23:06)
[2019-04-24] MEDS: VANCOMYCIN HCL 250 MG/5ML POSYG PO ×2 (06:00)
[2019-04-24 06:13] LABS: ADD MAN DIFF? NO
[2019-04-24 06:19] LABS: WHITE BLOOD COUNT 8.5 10^3/ul (4.8-10.8)
[2019-04-24 06:19] LABS: BASOPHIL # 0.1 10^3/ul (0.0-0.1); BASOPHILS % 0.6 % (0.0-2.0); EOSINOPHILS # 0.7 10^3/ul (0.0-0.5); EOSINOPHILS % 8.1 % (0.0-7.0); HEMATOCRIT 24.8 % (37.0-47.0); HEMOGLOBIN 7.6 g/dl (12.0-16.0); LYMPHOCYTES # 1.3 10^3/ul (0.8-2.9); MEAN CORPUSCULAR HGB CONC 30.6 g/dl (32.0-37.0); MEAN CORPUSCULAR VOLUME 91.5 fl (82.0-101.0); MEAN PLATELET VOLUME 8.9 fl (7.4-10.4); MONOCYTE # 0.8 10^3/ul (0.3-0.9); MONOCYTES % 9.9 % (0.0-11.0); NEUTROPHIL # 5.6 10^3/ul (1.6-7.5); NEUTROPHILS % 66.2 % (39.0-77.0); PLATELET COUNT 298 10^3/UL (140-415); RED BLOOD COUNT 2.71 10^6/ul (4.20-5.40); RED CELL DISTRIBUTION WIDTH 15.4 % (11.5-14.5)
[2019-04-24] MEDS: metroNIDAZOLE 500 MG/NS (PMX) 100 ML IVPB ×3 (06:39→22:26)
[2019-04-24 06:48] LABS: ANION GAP 3 (5-13); BLOOD UREA NITROGEN 12 mg/dl (7-20); CALCIUM 7.9 mg/dl (8.4-10.2); CARBON DIOXIDE 26 mmol/L (21-31); CHLORIDE 111 mmol/L (97-110); CREATININE 0.63 mg/dl (0.44-1.00); Estimated GFR > 60 mL/min (>60); GLUCOSE 120 mg/dl (70-220); MAGNESIUM 1.7 mg/dl (1.7-2.5); PHOSPHORUS 2.8 mg/dl (2.5-4.9); POTASSIUM 3.2 mmol/L (3.5-5.1); SODIUM 140 mmol/L (135-144)
[2019-04-24] MEDS ORDERED: POTASSIUM CHLORIDE (SR) 20 MEQ TAB PO (07:11)
[2019-04-24] MEDS: INSULIN ASPART [NOVOLOG] 3 ML PEN SC ×4 (08:51→20:38)
[2019-04-24] MEDS: predniSONE 1 MG TAB PO (08:52)
[2019-04-24] MEDS: AMLODIPINE 5 MG TAB PO (08:52)
[2019-04-24] MEDS: CLOPIDOGREL 75 MG TAB PO (08:52)
[2019-04-24] MEDS: oxyCODONE (CR) 20 MG TAB [oxyCONTIN] PO ×3 (08:53→21:10)
[2019-04-24] MEDS: LUBIPROSTONE 24 MCG CAP PO ×2 (08:53→20:24)
[2019-04-24] MEDS: ASPIRIN (EC) 81 MG TAB PO (08:53)
[2019-04-24] MEDS: MAGNESIUM OXIDE 400 MG TAB PO (08:53)
[2019-04-24] MEDS: FERROUS SULFATE (EC) 325 MG TAB PO ×3 (08:53→20:25)
[2019-04-24] MEDS: BETHANECHOL 25 MG TAB PO (08:54)
[2019-04-24] MEDS: MAGNESIUM HYDROXIDE 30ML CUP PO (08:54)
[2019-04-24] MEDS: FENOFIBRATE 48 MG TAB PO (08:54)
[2019-04-24] MEDS: ENOXAPARIN 40 MG/0.4 ML SYG SC (08:55)
[2019-04-24] MEDS: POTASSIUM CHLORIDE 20 MEQ POWDER FOR ORAL SOLN PO (09:11)
[2019-04-24] MEDS: FAMOTIDINE 20 MG INJ IV ×2 (11:18→20:24)
[2019-04-24] MEDS: POTASSIUM CHLORIDE (SR) 20 MEQ TAB PO (12:52)
[2019-04-24 13:00] LABS: VANCOMYCIN,TROUGH 15.1 ug/ml (10.0-20.0)
[2019-04-24] MEDS: ATORVASTATIN 20 MG TAB PO (20:25)
[2019-04-25] MEDS: VANCOMYCIN 500 MG (PMX) 100 ML IVPB ×2 (00:19→12:03)
[2019-04-25] MEDS: ACCU-CHEK XX (02:00)
[2019-04-25] MEDS: oxyCODONE 5 MG TAB PO (02:59)
[2019-04-25] MEDS: HYDROmorphONE 1 MG/ML SYG IV ×5 (04:23→21:51)
[2019-04-25] MEDS: metroNIDAZOLE 500 MG/NS (PMX) 100 ML IVPB ×3 (05:39→21:51)
[2019-04-25 06:19] LABS: ADD MAN DIFF? NO
[2019-04-25 06:22] LABS: WHITE BLOOD COUNT 7.8 10^3/ul (4.8-10.8)
[2019-04-25 06:22] LABS: BASOPHILS % 0.3 % (0.0-2.0); EOSINOPHILS # 0.5 10^3/ul (0.0-0.5); HEMATOCRIT 24.8 % (37.0-47.0); HEMOGLOBIN 7.3 g/dl (12.0-16.0); LYMPHOCYTES # 1.2 10^3/ul (0.8-2.9); LYMPHOCYTES % 15.8 % (15.0-51.0); MEAN CORPUSCULAR HEMOGLOBIN 27.4 pg (29.0-33.0); MEAN CORPUSCULAR HGB CONC 29.4 g/dl (32.0-37.0); MEAN CORPUSCULAR VOLUME 93.2 fl (82.0-101.0); MEAN PLATELET VOLUME 9.1 fl (7.4-10.4); MONOCYTE # 0.7 10^3/ul (0.3-0.9); MONOCYTES % 9.5 % (0.0-11.0); NEUTROPHIL # 5.3 10^3/ul (1.6-7.5); NEUTROPHILS % 67.9 % (39.0-77.0); PLATELET COUNT 287 10^3/UL (140-415); RED BLOOD COUNT 2.66 10^6/ul (4.20-5.40); RED CELL DISTRIBUTION WIDTH 15.7 % (11.5-14.5)
[2019-04-25 06:53] LABS: ANION GAP 4 (5-13); BLOOD UREA NITROGEN 8 mg/dl (7-20); CALCIUM 7.5 mg/dl (8.4-10.2); CARBON DIOXIDE 23 mmol/L (21-31); CHLORIDE 113 mmol/L (97-110); CREATININE 0.47 mg/dl (0.44-1.00); Estimated GFR > 60 mL/min (>60); GLUCOSE 121 mg/dl (70-220); MAGNESIUM 1.5 mg/dl (1.7-2.5); PHOSPHORUS 2.2 mg/dl (2.5-4.9); POTASSIUM 3.6 mmol/L (3.5-5.1); SODIUM 140 mmol/L (135-144)
[2019-04-25] MEDS: INSULIN ASPART [NOVOLOG] 3 ML PEN SC ×4 (08:45→20:41)
[2019-04-25] MEDS: predniSONE 1 MG TAB PO (08:47)
[2019-04-25] MEDS: ASPIRIN (EC) 81 MG TAB PO (08:47)
[2019-04-25] MEDS: LINAGLIPTIN 5 MG TABLET PO (08:48)
[2019-04-25] MEDS: FENOFIBRATE 48 MG TAB PO (08:49)
[2019-04-25] MEDS: MAGNESIUM OXIDE 400 MG TAB PO (08:49)
[2019-04-25] MEDS: CLOPIDOGREL 75 MG TAB PO (08:49)
[2019-04-25] MEDS: FERROUS SULFATE (EC) 325 MG TAB PO ×3 (08:49→20:21)
[2019-04-25] MEDS: BETHANECHOL 25 MG TAB PO (08:49)
[2019-04-25] MEDS: AMLODIPINE 5 MG TAB PO (08:50)
[2019-04-25] MEDS: oxyCODONE (CR) 20 MG TAB [oxyCONTIN] PO ×3 (08:50→20:19)
[2019-04-25] MEDS: ENOXAPARIN 40 MG/0.4 ML SYG SC (08:52)
[2019-04-25] MEDS: MAGNESIUM SULFATE 2 GM/50 ML 50 ML IVPB (08:52)
[2019-04-25] MEDS: FAMOTIDINE 20 MG INJ IV ×2 (08:52→20:21)
[2019-04-25] MEDS: LUBIPROSTONE 24 MCG CAP PO ×2 (08:54→20:20)
[2019-04-25] MEDS: NEUTRA-PHOS 250 MG PACKET PO (08:58)
[2019-04-25] MEDS: MAGNESIUM HYDROXIDE 30ML CUP PO (08:58)
[2019-04-25] MEDS: NYSTATIN 30 GM POWDER BTL TOP (13:46)
[2019-04-25] MEDS: ATORVASTATIN 20 MG TAB PO (20:21)
[2019-04-25] MEDS: ONDANSETRON 4 MG INJ IV (23:30)
[2019-04-26] MEDS: VANCOMYCIN 500 MG (PMX) 100 ML IVPB ×3 (00:21→23:03)
[2019-04-26] MEDS: HYDROmorphONE 1 MG/ML SYG IV ×6 (02:00→22:58)
[2019-04-26] MEDS: ACCU-CHEK XX (02:00)
[2019-04-26] MEDS: metroNIDAZOLE 500 MG/NS (PMX) 100 ML IVPB ×2 (05:40→14:53)
[2019-04-26 06:05] LABS: ADD MAN DIFF? NO
[2019-04-26 06:16] LABS: BASOPHIL # 0.1 10^3/ul (0.0-0.1); BASOPHILS % 0.5 % (0.0-2.0); HEMATOCRIT 28.8 % (37.0-47.0); HEMOGLOBIN 8.5 g/dl (12.0-16.0); LYMPHOCYTES # 1.4 10^3/ul (0.8-2.9); LYMPHOCYTES % 13.1 % (15.0-51.0); MEAN CORPUSCULAR HEMOGLOBIN 27.2 pg (29.0-33.0); MEAN CORPUSCULAR HGB CONC 29.5 g/dl (32.0-37.0); MEAN CORPUSCULAR VOLUME 92.3 fl (82.0-101.0); MEAN PLATELET VOLUME 8.7 fl (7.4-10.4); MONOCYTES % 9.8 % (0.0-11.0); NEUTROPHIL # 7.2 10^3/ul (1.6-7.5); PLATELET COUNT 336 10^3/UL (140-415); RED BLOOD COUNT 3.12 10^6/ul (4.20-5.40); RED CELL DISTRIBUTION WIDTH 16.1 % (11.5-14.5)
[2019-04-26 06:16] LABS: WHITE BLOOD COUNT 10.7 10^3/ul (4.8-10.8)
[2019-04-26] MEDS: ONDANSETRON 4 MG INJ IV ×3 (06:22→21:39)
[2019-04-26 06:32] LABS: ANION GAP 3 (5-13); BLOOD UREA NITROGEN 8 mg/dl (7-20); CALCIUM 8.2 mg/dl (8.4-10.2); CARBON DIOXIDE 27 mmol/L (21-31); CHLORIDE 110 mmol/L (97-110); CREATININE 0.52 mg/dl (0.44-1.00); Estimated GFR > 60 mL/min (>60); GLUCOSE 107 mg/dl (70-220); MAGNESIUM 1.5 mg/dl (1.7-2.5); PHOSPHORUS 2.5 mg/dl (2.5-4.9); POTASSIUM 3.7 mmol/L (3.5-5.1); SODIUM 140 mmol/L (135-144)
[2019-04-26] MEDS: INSULIN ASPART [NOVOLOG] 3 ML PEN SC ×4 (07:50→21:29)
[2019-04-26] MEDS: LUBIPROSTONE 24 MCG CAP PO ×2 (09:00→21:19)
[2019-04-26] MEDS: MAGNESIUM HYDROXIDE 30ML CUP PO (09:00)
[2019-04-26] MEDS: FENOFIBRATE 48 MG TAB PO (09:09)
[2019-04-26] MEDS: predniSONE 1 MG TAB PO (09:10)
[2019-04-26] MEDS: oxyCODONE (CR) 20 MG TAB [oxyCONTIN] PO ×3 (09:10→21:21)
[2019-04-26] MEDS: LINAGLIPTIN 5 MG TABLET PO (09:11)
[2019-04-26] MEDS: ASPIRIN (EC) 81 MG TAB PO (09:11)
[2019-04-26] MEDS: FERROUS SULFATE (EC) 325 MG TAB PO ×3 (09:11→21:19)
[2019-04-26] MEDS: CLOPIDOGREL 75 MG TAB PO (09:11)
[2019-04-26] MEDS: BETHANECHOL 25 MG TAB PO (09:12)
[2019-04-26] MEDS: ENOXAPARIN 40 MG/0.4 ML SYG SC (09:14)
[2019-04-26] MEDS: AMLODIPINE 5 MG TAB PO (09:16)
[2019-04-26] MEDS: FAMOTIDINE 20 MG INJ IV (09:16)
[2019-04-26] MEDS: MAGNESIUM SULFATE 2 GM/50 ML 50 ML IVPB (09:18)
[2019-04-26] MEDS: NYSTATIN 30 GM POWDER BTL TOP (09:22)
[2019-04-26] MEDS: MAGNESIUM OXIDE 400 MG TAB PO (14:54)
[2019-04-26] MEDS: ALTEPLASE (CATHFLO) 2 MG INJ CATHETER (17:18)
[2019-04-26] MEDS: ATORVASTATIN 20 MG TAB PO (21:21)
[2019-04-26] MEDS: FAMOTIDINE 20 MG TAB PO (21:21)
[2019-04-26] MEDS: metroNIDAZOLE 500 MG TAB PO (21:38)
[2019-04-27] MEDS: ACCU-CHEK XX (02:00)
[2019-04-27] MEDS: HYDROmorphONE 1 MG/ML SYG IV ×5 (03:05→20:52)
[2019-04-27] MEDS: metroNIDAZOLE 500 MG TAB PO ×3 (06:24→21:47)
[2019-04-27] MEDS: LISINOPRIL 20 MG TAB PO (06:26)
[2019-04-27] MEDS: AMLODIPINE 5 MG TAB PO ×2 (06:28→09:24)
[2019-04-27] MEDS ORDERED: LISINOPRIL 20 MG TAB PO (09:00)
[2019-04-27] MEDS ORDERED: AMLODIPINE 5 MG TAB PO (09:00)
[2019-04-27] MEDS: oxyCODONE (CR) 20 MG TAB [oxyCONTIN] PO ×3 (09:21→21:47)
[2019-04-27] MEDS: LINAGLIPTIN 5 MG TABLET PO (09:21)
[2019-04-27] MEDS: FENOFIBRATE 48 MG TAB PO (09:21)
[2019-04-27] MEDS: MAGNESIUM HYDROXIDE 30ML CUP PO (09:21)
[2019-04-27] MEDS: FAMOTIDINE 20 MG TAB PO ×2 (09:22→20:33)
[2019-04-27] MEDS: ENOXAPARIN 40 MG/0.4 ML SYG SC (09:22)
[2019-04-27] MEDS: INSULIN ASPART [NOVOLOG] 3 ML PEN SC ×4 (09:23→21:00)
[2019-04-27] MEDS: FERROUS SULFATE (EC) 325 MG TAB PO ×3 (09:23→20:33)
[2019-04-27] MEDS: LUBIPROSTONE 24 MCG CAP PO ×2 (09:23→20:34)
[2019-04-27] MEDS: predniSONE 1 MG TAB PO (09:23)
[2019-04-27] MEDS: ASPIRIN (EC) 81 MG TAB PO (09:25)
[2019-04-27] MEDS: CLOPIDOGREL 75 MG TAB PO (09:25)
[2019-04-27] MEDS: BETHANECHOL 25 MG TAB PO (09:26)
[2019-04-27] MEDS: MAGNESIUM OXIDE 400 MG TAB PO (09:26)
[2019-04-27 12:36] LABS: VANCOMYCIN,TROUGH 15.3 ug/ml (10.0-20.0)
[2019-04-27] MEDS: VANCOMYCIN 500 MG (PMX) 100 ML IVPB (12:55)
[2019-04-27] MEDS: NYSTATIN 30 GM POWDER BTL TOP (17:01)
[2019-04-27] MEDS: ATORVASTATIN 20 MG TAB PO (20:33)
[2019-04-27] MEDS: ONDANSETRON 4 MG INJ IV (20:35)
[2019-04-28] MEDS: ACCU-CHEK XX (00:21)
[2019-04-28] MEDS: VANCOMYCIN 500 MG (PMX) 100 ML IVPB ×2 (00:48→12:49)
[2019-04-28] MEDS: HYDROmorphONE 1 MG/ML SYG IV ×3 (00:57→09:05)
[2019-04-28] MEDS: metroNIDAZOLE 500 MG TAB PO ×3 (05:01→20:51)
[2019-04-28 06:24] LABS: ADD MAN DIFF? NO
[2019-04-28 06:33] LABS: BASOPHILS % 0.5 % (0.0-2.0); EOSINOPHILS # 0.5 10^3/ul (0.0-0.5); EOSINOPHILS % 6.6 % (0.0-7.0); HEMATOCRIT 30.2 % (37.0-47.0); HEMOGLOBIN 8.9 g/dl (12.0-16.0); LYMPHOCYTES # 1.2 10^3/ul (0.8-2.9); LYMPHOCYTES % 15.2 % (15.0-51.0); MEAN CORPUSCULAR HEMOGLOBIN 27.5 pg (29.0-33.0); MEAN CORPUSCULAR HGB CONC 29.5 g/dl (32.0-37.0); MEAN CORPUSCULAR VOLUME 93.2 fl (82.0-101.0); MONOCYTE # 0.7 10^3/ul (0.3-0.9); MONOCYTES % 9.1 % (0.0-11.0); NEUTROPHIL # 5.5 10^3/ul (1.6-7.5); NEUTROPHILS % 68.2 % (39.0-77.0); PLATELET COUNT 306 10^3/UL (140-415); RED BLOOD COUNT 3.24 10^6/ul (4.20-5.40); RED CELL DISTRIBUTION WIDTH 16.5 % (11.5-14.5)
[2019-04-28 07:05] LABS: ANION GAP 2 (5-13); BLOOD UREA NITROGEN 13 mg/dl (7-20); CARBON DIOXIDE 29 mmol/L (21-31); CHLORIDE 107 mmol/L (97-110); CREATININE 0.58 mg/dl (0.44-1.00); Estimated GFR > 60 mL/min (>60); GLUCOSE 95 mg/dl (70-220); MAGNESIUM 1.6 mg/dl (1.7-2.5); PHOSPHORUS 3.3 mg/dl (2.5-4.9); POTASSIUM 3.8 mmol/L (3.5-5.1); SODIUM 138 mmol/L (135-144)
[2019-04-28] MEDS: INSULIN ASPART [NOVOLOG] 3 ML PEN SC ×4 (07:50→20:50)
[2019-04-28] MEDS: LUBIPROSTONE 24 MCG CAP PO ×2 (09:00→20:51)
[2019-04-28] MEDS: MAGNESIUM HYDROXIDE 30ML CUP PO (09:00)
[2019-04-28] MEDS: MAGNESIUM SULFATE 2 GM/50 ML 50 ML IVPB (09:04)
[2019-04-28] MEDS: CLOPIDOGREL 75 MG TAB PO (09:06)
[2019-04-28] MEDS: ENOXAPARIN 40 MG/0.4 ML SYG SC (09:06)
[2019-04-28] MEDS: FERROUS SULFATE (EC) 325 MG TAB PO ×3 (09:06→20:51)
[2019-04-28] MEDS: MAGNESIUM OXIDE 400 MG TAB PO (09:06)
[2019-04-28] MEDS: LINAGLIPTIN 5 MG TABLET PO (09:06)
[2019-04-28] MEDS: FAMOTIDINE 20 MG TAB PO ×2 (09:06→20:51)
[2019-04-28] MEDS: ASPIRIN (EC) 81 MG TAB PO (09:06)
[2019-04-28] MEDS: FENOFIBRATE 48 MG TAB PO (09:07)
[2019-04-28] MEDS: BETHANECHOL 25 MG TAB PO (09:07)
[2019-04-28] MEDS: predniSONE 1 MG TAB PO (09:07)
[2019-04-28] MEDS: oxyCODONE (CR) 20 MG TAB [oxyCONTIN] PO ×3 (09:08→20:52)
[2019-04-28] MEDS: LISINOPRIL 20 MG TAB PO (09:21)
[2019-04-28] MEDS: AMLODIPINE 5 MG TAB PO (09:21)
[2019-04-28] MEDS: NYSTATIN 30 GM POWDER BTL TOP (09:22)
[2019-04-28] MEDS: HYDROmorphONE 2 MG/ML SYG IV ×3 (12:49→21:56)
[2019-04-28] MEDS: ONDANSETRON 4 MG INJ IV (16:00)
[2019-04-28] MEDS: oxyCODONE 5 MG TAB PO (18:27)
[2019-04-28] MEDS: ATORVASTATIN 20 MG TAB PO (20:51)
[2019-04-29] MEDS: ONDANSETRON 4 MG INJ IV ×2 (00:38→08:20)
[2019-04-29] MEDS: VANCOMYCIN 500 MG (PMX) 100 ML IVPB ×2 (00:38→12:23)
[2019-04-29] MEDS: ACCU-CHEK XX (01:53)
[2019-04-29] MEDS: HYDROmorphONE 2 MG/ML SYG IV ×4 (02:01→23:03)
[2019-04-29] MEDS: oxyCODONE 5 MG TAB PO ×2 (02:43→07:28)
[2019-04-29] MEDS: metroNIDAZOLE 500 MG TAB PO ×3 (06:05→21:08)
[2019-04-29] MEDS: INSULIN ASPART [NOVOLOG] 3 ML PEN SC ×4 (07:50→21:21)
[2019-04-29] MEDS: ENOXAPARIN 40 MG/0.4 ML SYG SC (08:32)
[2019-04-29] MEDS: oxyCODONE (CR) 20 MG TAB [oxyCONTIN] PO ×3 (08:33→21:09)
[2019-04-29] MEDS: CLOPIDOGREL 75 MG TAB PO (08:34)
[2019-04-29] MEDS: FERROUS SULFATE (EC) 325 MG TAB PO ×3 (08:34→21:08)
[2019-04-29] MEDS: MAGNESIUM OXIDE 400 MG TAB PO (08:34)
[2019-04-29] MEDS: LUBIPROSTONE 24 MCG CAP PO ×2 (08:34→21:09)
[2019-04-29] MEDS: FAMOTIDINE 20 MG TAB PO ×2 (08:35→21:08)
[2019-04-29] MEDS: FENOFIBRATE 48 MG TAB PO (08:35)
[2019-04-29] MEDS: BETHANECHOL 25 MG TAB PO (08:36)
[2019-04-29] MEDS: AMLODIPINE 5 MG TAB PO (08:36)
[2019-04-29] MEDS: LISINOPRIL 20 MG TAB PO (08:36)
[2019-04-29] MEDS: ASPIRIN (EC) 81 MG TAB PO (08:36)
[2019-04-29] MEDS: LINAGLIPTIN 5 MG TABLET PO (08:37)
[2019-04-29] MEDS: MAGNESIUM HYDROXIDE 30ML CUP PO (08:45)
[2019-04-29] MEDS ORDERED: predniSONE 1 MG TAB PO (09:00)
[2019-04-29] MEDS: predniSONE 20 MG TAB PO (09:33)
[2019-04-29] MEDS: ACETAMINOPHEN 1000MG/100ML IV 100 ML IVPB (09:34)
[2019-04-29] MEDS: morphine 2 MG INJ IV ×3 (09:34→17:48)
[2019-04-29] MEDS: ATORVASTATIN 20 MG TAB PO (21:08)
[2019-04-30] MEDS: ACCU-CHEK XX (02:30)
[2019-04-30] MEDS: ACETAMINOPHEN 325 MG TAB PO (02:30)
[2019-04-30] MEDS: VANCOMYCIN 500 MG (PMX) 100 ML IVPB ×3 (02:30→12:55)
[2019-04-30] MEDS: HYDROmorphONE 2 MG/ML SYG IV ×6 (03:00→23:01)
[2019-04-30 06:04] LABS: ADD MAN DIFF? NO
[2019-04-30 06:10] LABS: BASOPHILS % 0.5 % (0.0-2.0); EOSINOPHILS % 0.2 % (0.0-7.0); HEMATOCRIT 25.6 % (37.0-47.0); HEMOGLOBIN 7.6 g/dl (12.0-16.0); LYMPHOCYTES % 12.2 % (15.0-51.0); MEAN CORPUSCULAR HEMOGLOBIN 27.5 pg (29.0-33.0); MEAN CORPUSCULAR HGB CONC 29.7 g/dl (32.0-37.0); MEAN CORPUSCULAR VOLUME 92.8 fl (82.0-101.0); MONOCYTE # 0.6 10^3/ul (0.3-0.9); MONOCYTES % 7.5 % (0.0-11.0); NEUTROPHIL # 6.4 10^3/ul (1.6-7.5); PLATELET COUNT 370 10^3/UL (140-415); RED BLOOD COUNT 2.76 10^6/ul (4.20-5.40); RED CELL DISTRIBUTION WIDTH 17.2 % (11.5-14.5)
[2019-04-30 06:10] LABS: WHITE BLOOD COUNT 8.1 10^3/ul (4.8-10.8)
[2019-04-30 06:43] LABS: ANION GAP 2 (5-13); BLOOD UREA NITROGEN 15 mg/dl (7-20); CALCIUM 7.9 mg/dl (8.4-10.2); CARBON DIOXIDE 28 mmol/L (21-31); CHLORIDE 109 mmol/L (97-110); Estimated GFR > 60 mL/min (>60); GLUCOSE 145 mg/dl (70-220); MAGNESIUM 1.6 mg/dl (1.7-2.5); PHOSPHORUS 3.2 mg/dl (2.5-4.9); POTASSIUM 4.2 mmol/L (3.5-5.1); SODIUM 139 mmol/L (135-144)
[2019-04-30] MEDS: metroNIDAZOLE 500 MG TAB PO ×3 (06:54→21:20)
[2019-04-30] MEDS: AMLODIPINE 5 MG TAB PO (07:42)
[2019-04-30] MEDS: LISINOPRIL 20 MG TAB PO (07:43)
[2019-04-30] MEDS: oxyCODONE (CR) 20 MG TAB [oxyCONTIN] PO ×3 (07:44→21:20)
[2019-04-30] MEDS: DOCUSATE SODIUM 100 MG CAP PO (07:44)
[2019-04-30] MEDS: CLOPIDOGREL 75 MG TAB PO (07:44)
[2019-04-30] MEDS: FERROUS SULFATE (EC) 325 MG TAB PO ×3 (07:44→21:21)
[2019-04-30] MEDS: FAMOTIDINE 20 MG TAB PO ×2 (07:44→21:21)
[2019-04-30] MEDS: BETHANECHOL 25 MG TAB PO (07:45)
[2019-04-30] MEDS: LINAGLIPTIN 5 MG TABLET PO (07:45)
[2019-04-30] MEDS: MAGNESIUM OXIDE 400 MG TAB PO (07:45)
[2019-04-30] MEDS: FENOFIBRATE 48 MG TAB PO (07:45)
[2019-04-30] MEDS: predniSONE 20 MG TAB PO (07:46)
[2019-04-30] MEDS: ASPIRIN (EC) 81 MG TAB PO (07:46)
[2019-04-30] MEDS: LUBIPROSTONE 24 MCG CAP PO ×2 (07:46→21:20)
[2019-04-30] MEDS: MAGNESIUM HYDROXIDE 30ML CUP PO (07:47)
[2019-04-30] MEDS: ONDANSETRON 4 MG INJ IV ×2 (07:53→15:04)
[2019-04-30] MEDS: INSULIN ASPART [NOVOLOG] 3 ML PEN SC ×4 (08:40→21:00)
[2019-04-30] MEDS: ENOXAPARIN 40 MG/0.4 ML SYG SC (08:41)
[2019-04-30] MEDS ORDERED: predniSONE 10 MG TAB PO (09:00)
[2019-04-30] MEDS: MAGNESIUM SULFATE 2 GM/50 ML 50 ML IVPB (10:57)
[2019-04-30] MEDS: ALTEPLASE (CATHFLO) 2 MG INJ CATHETER (18:52)
[2019-04-30] MEDS: ATORVASTATIN 20 MG TAB PO (21:21)
[2019-05-01] MEDS: VANCOMYCIN 500 MG (PMX) 100 ML IVPB ×2 (00:21→12:55)
[2019-05-01] MEDS: ACCU-CHEK XX (02:00)
[2019-05-01] MEDS: HYDROmorphONE 2 MG/ML SYG IV ×5 (03:21→23:01)
[2019-05-01] MEDS: metroNIDAZOLE 500 MG TAB PO ×3 (06:44→22:24)
[2019-05-01] MEDS: INSULIN ASPART [NOVOLOG] 3 ML PEN SC ×4 (07:50→21:00)
[2019-05-01] MEDS: BETHANECHOL 25 MG TAB PO (09:00)
[2019-05-01] MEDS: oxyCODONE (CR) 20 MG TAB [oxyCONTIN] PO ×3 (09:10→22:24)
[2019-05-01] MEDS: FENOFIBRATE 48 MG TAB PO (09:11)
[2019-05-01] MEDS: MAGNESIUM OXIDE 400 MG TAB PO (09:11)
[2019-05-01] MEDS: LINAGLIPTIN 5 MG TABLET PO (09:11)
[2019-05-01] MEDS: LUBIPROSTONE 24 MCG CAP PO ×2 (09:11→22:24)
[2019-05-01] MEDS: FERROUS SULFATE (EC) 325 MG TAB PO ×3 (09:11→21:00)
[2019-05-01] MEDS: CLOPIDOGREL 75 MG TAB PO (09:12)
[2019-05-01] MEDS: FAMOTIDINE 20 MG TAB PO ×2 (09:12→22:25)
[2019-05-01] MEDS: predniSONE 20 MG TAB PO (09:12)
[2019-05-01] MEDS: ASPIRIN (EC) 81 MG TAB PO (09:12)
[2019-05-01] MEDS: LISINOPRIL 20 MG TAB PO (09:13)
[2019-05-01] MEDS: MAGNESIUM HYDROXIDE 30ML CUP PO (09:14)
[2019-05-01] MEDS: AMLODIPINE 5 MG TAB PO (09:14)
[2019-05-01] MEDS: ENOXAPARIN 40 MG/0.4 ML SYG SC (09:17)
[2019-05-01] MEDS: ONDANSETRON 4 MG INJ IV (18:20)
[2019-05-01] MEDS: ATORVASTATIN 20 MG TAB PO (21:00)
[2019-05-02] MEDS: VANCOMYCIN 500 MG (PMX) 100 ML IVPB ×3 (00:04→23:50)
[2019-05-02] MEDS: ACCU-CHEK XX (02:00)
[2019-05-02] MEDS: HYDROmorphONE 2 MG/ML SYG IV ×6 (03:04→23:44)
[2019-05-02] MEDS: metroNIDAZOLE 500 MG TAB PO ×3 (07:00→21:48)
[2019-05-02] MEDS: INSULIN ASPART [NOVOLOG] 3 ML PEN SC ×4 (08:45→21:46)
[2019-05-02] MEDS: ENOXAPARIN 40 MG/0.4 ML SYG SC (08:51)
[2019-05-02] MEDS: LUBIPROSTONE 24 MCG CAP PO ×2 (08:55→21:48)
[2019-05-02] MEDS: BETHANECHOL 25 MG TAB PO (08:55)
[2019-05-02] MEDS: AMLODIPINE 5 MG TAB PO (08:55)
[2019-05-02] MEDS: MAGNESIUM OXIDE 400 MG TAB PO (08:55)
[2019-05-02] MEDS: CLOPIDOGREL 75 MG TAB PO (08:55)
[2019-05-02] MEDS: LINAGLIPTIN 5 MG TABLET PO (08:56)
[2019-05-02] MEDS: predniSONE 20 MG TAB PO (08:56)
[2019-05-02] MEDS: ASPIRIN (EC) 81 MG TAB PO (08:56)
[2019-05-02] MEDS: LISINOPRIL 20 MG TAB PO (08:56)
[2019-05-02] MEDS: FENOFIBRATE 48 MG TAB PO (08:56)
[2019-05-02] MEDS: FAMOTIDINE 20 MG TAB PO ×2 (08:56→21:48)
[2019-05-02] MEDS: FERROUS SULFATE (EC) 325 MG TAB PO ×3 (08:56→21:00)
[2019-05-02] MEDS: MAGNESIUM HYDROXIDE 30ML CUP PO (08:57)
[2019-05-02] MEDS: oxyCODONE (CR) 20 MG TAB [oxyCONTIN] PO ×3 (08:58→21:47)
[2019-05-02 12:48] LABS: VANCOMYCIN,TROUGH 16.6 ug/ml (10.0-20.0)
[2019-05-02] MEDS: ATORVASTATIN 20 MG TAB PO (21:00)
[2019-05-02] MEDS: ONDANSETRON 4 MG INJ IV (23:34)
[2019-05-03] MEDS: ACCU-CHEK XX (02:00)
[2019-05-03] MEDS: HYDROmorphONE 2 MG/ML SYG IV ×5 (03:50→21:24)
[2019-05-03] MEDS: metroNIDAZOLE 500 MG TAB PO ×3 (05:22→21:17)
[2019-05-03 05:47] LABS: ADD MAN DIFF? NO
[2019-05-03 05:51] LABS: BASOPHILS % 0.3 % (0.0-2.0); EOSINOPHILS % 0.5 % (0.0-7.0); HEMATOCRIT 26.4 % (37.0-47.0); HEMOGLOBIN 7.9 g/dl (12.0-16.0); LYMPHOCYTES # 1.2 10^3/ul (0.8-2.9); LYMPHOCYTES % 13.6 % (15.0-51.0); MEAN CORPUSCULAR HEMOGLOBIN 27.7 pg (29.0-33.0); MEAN CORPUSCULAR HGB CONC 29.9 g/dl (32.0-37.0); MEAN CORPUSCULAR VOLUME 92.6 fl (82.0-101.0); MEAN PLATELET VOLUME 8.9 fl (7.4-10.4); MONOCYTE # 0.8 10^3/ul (0.3-0.9); MONOCYTES % 9.1 % (0.0-11.0); NEUTROPHIL # 6.7 10^3/ul (1.6-7.5); NEUTROPHILS % 75.7 % (39.0-77.0); PLATELET COUNT 389 10^3/UL (140-415); RED BLOOD COUNT 2.85 10^6/ul (4.20-5.40); RED CELL DISTRIBUTION WIDTH 17.2 % (11.5-14.5)
[2019-05-03 05:51] LABS: WHITE BLOOD COUNT 8.8 10^3/ul (4.8-10.8)
[2019-05-03 06:26] LABS: ANION GAP 2 (5-13); BLOOD UREA NITROGEN 20 mg/dl (7-20); CALCIUM 8.5 mg/dl (8.4-10.2); CARBON DIOXIDE 30 mmol/L (21-31); CHLORIDE 106 mmol/L (97-110); CREATININE 0.65 mg/dl (0.44-1.00); Estimated GFR > 60 mL/min (>60); GLUCOSE 157 mg/dl (70-220); MAGNESIUM 1.8 mg/dl (1.7-2.5); PHOSPHORUS 3.8 mg/dl (2.5-4.9); POTASSIUM 4.4 mmol/L (3.5-5.1); SODIUM 138 mmol/L (135-144)
[2019-05-03] MEDS: MAGNESIUM HYDROXIDE 30ML CUP PO (09:00)
[2019-05-03] MEDS: FENOFIBRATE 48 MG TAB PO (09:00)
[2019-05-03] MEDS: LUBIPROSTONE 24 MCG CAP PO ×2 (09:00→21:16)
[2019-05-03] MEDS: INSULIN ASPART [NOVOLOG] 3 ML PEN SC ×4 (09:00→21:34)
[2019-05-03] MEDS: FERROUS SULFATE (EC) 325 MG TAB PO ×3 (09:00→21:00)
[2019-05-03] MEDS: MAGNESIUM OXIDE 400 MG TAB PO (09:00)
[2019-05-03] MEDS: LINAGLIPTIN 5 MG TABLET PO (09:00)
[2019-05-03] MEDS: FAMOTIDINE 20 MG TAB PO ×2 (09:00→21:17)
[2019-05-03] MEDS: ENOXAPARIN 40 MG/0.4 ML SYG SC (09:00)
[2019-05-03] MEDS: predniSONE 20 MG TAB PO (09:11)
[2019-05-03] MEDS: CLOPIDOGREL 75 MG TAB PO (09:11)
[2019-05-03] MEDS: oxyCODONE (CR) 20 MG TAB [oxyCONTIN] PO ×3 (09:11→21:17)
[2019-05-03] MEDS: LISINOPRIL 20 MG TAB PO (09:12)
[2019-05-03] MEDS: ASPIRIN (EC) 81 MG TAB PO (09:12)
[2019-05-03] MEDS: AMLODIPINE 5 MG TAB PO (09:12)
[2019-05-03] MEDS: BETHANECHOL 25 MG TAB PO (09:12)
[2019-05-03] MEDS: VANCOMYCIN 500 MG (PMX) 100 ML IVPB ×2 (13:26→23:25)
[2019-05-03] MEDS ORDERED: IOHEXOL 300MG/ML 30 ML BTL (14:03)
[2019-05-03] MEDS ORDERED: MIDAZOLAM 1 MG/ML 2 ML INJ (14:45)
[2019-05-03] MEDS ORDERED: FENTAnyl 50 MCG/ML VIAL (14:45)
[2019-05-03] MEDS ORDERED: PROPOFOL 20 ML (14:45)
[2019-05-03] MEDS ORDERED: DIPHENHYDRAMINE 50 MG INJ IV (15:00)
[2019-05-03] MEDS ORDERED: LABETALOL HCL 20MG INJ IV (15:00)
[2019-05-03] MEDS ORDERED: OXYCODONE/ACETAMINOPHEN (5/325) TAB PO (15:00)
[2019-05-03] MEDS ORDERED: hydrALAzine 20 MG INJ IV (15:00)
[2019-05-03] MEDS ORDERED: HYDROmorphONE 1 MG/5 ML IV SYRINGE IV ×2 (15:00)
[2019-05-03] MEDS ORDERED: FENTAnyl 50 MCG/ML VIAL IV ×2 (15:00)
[2019-05-03] MEDS ORDERED: MEPERIDINE 25 MG INJ IV (15:00)
[2019-05-03] MEDS ORDERED: ONDANSETRON 4 MG INJ IV (15:00)
[2019-05-03] MEDS ORDERED: EPHEDrine 25 MG/5 ML SYG IV (15:00)
[2019-05-03] MEDS ORDERED: DEXAMETHASONE 4 MG/ML 5 ML INJ (15:19)
[2019-05-03] MEDS ORDERED: ONDANSETRON 4 MG INJ (15:19)
[2019-05-03] MEDS: LIDOCAINE 1% (MPF) 30 ML INJ (15:31)
[2019-05-03] MEDS: ATORVASTATIN 20 MG TAB PO (21:17)
[2019-05-03] MEDS: ONDANSETRON 4 MG INJ IV (23:25)
[2019-05-04] MEDS: HYDROmorphONE 2 MG/ML SYG IV ×6 (01:29→22:53)
[2019-05-04] MEDS: ACCU-CHEK XX (02:00)
[2019-05-04] MEDS: ONDANSETRON 4 MG INJ IV ×2 (04:50→10:21)
[2019-05-04] MEDS: metroNIDAZOLE 500 MG TAB PO ×2 (05:19→14:02)
[2019-05-04] MEDS: PANTOPRAZOLE (EC) 40 MG TAB PO ×2 (05:19→17:15)
[2019-05-04 06:00] LABS: WHITE BLOOD COUNT 8.4 10^3/ul (4.8-10.8)
[2019-05-04 06:00] LABS: ADD MAN DIFF? NO; BASOPHILS % 0.4 % (0.0-2.0); HEMATOCRIT 34.5 % (37.0-47.0); HEMOGLOBIN 10.3 g/dl (12.0-16.0); LYMPHOCYTES # 0.9 10^3/ul (0.8-2.9); LYMPHOCYTES % 10.2 % (15.0-51.0); MEAN CORPUSCULAR HEMOGLOBIN 27.2 pg (29.0-33.0); MEAN CORPUSCULAR HGB CONC 29.9 g/dl (32.0-37.0); MEAN PLATELET VOLUME 8.8 fl (7.4-10.4); MONOCYTE # 0.6 10^3/ul (0.3-0.9); MONOCYTES % 7.1 % (0.0-11.0); NEUTROPHIL # 6.9 10^3/ul (1.6-7.5); NEUTROPHILS % 81.6 % (39.0-77.0); PLATELET COUNT 554 10^3/UL (140-415); RED BLOOD COUNT 3.79 10^6/ul (4.20-5.40); RED CELL DISTRIBUTION WIDTH 17.2 % (11.5-14.5)
[2019-05-04] MEDS ORDERED: PANTOPRAZOLE (EC) 40 MG TAB PO (06:00)
[2019-05-04 06:44] LABS: ANION GAP 8 (5-13); BLOOD UREA NITROGEN 25 mg/dl (7-20); CARBON DIOXIDE 31 mmol/L (21-31); CHLORIDE 102 mmol/L (97-110); CREATININE 0.72 mg/dl (0.44-1.00); Estimated GFR > 60 mL/min (>60); GLUCOSE 193 mg/dl (70-220); MAGNESIUM 1.9 mg/dl (1.7-2.5); PHOSPHORUS 3.8 mg/dl (2.5-4.9); POTASSIUM 3.9 mmol/L (3.5-5.1); SODIUM 141 mmol/L (135-144)
[2019-05-04] MEDS: LINAGLIPTIN 5 MG TABLET PO (08:42)
[2019-05-04] MEDS: CLOPIDOGREL 75 MG TAB PO (08:44)
[2019-05-04] MEDS: BETHANECHOL 25 MG TAB PO (08:44)
[2019-05-04] MEDS: ASPIRIN (EC) 81 MG TAB PO (08:44)
[2019-05-04] MEDS: oxyCODONE (CR) 20 MG TAB [oxyCONTIN] PO ×3 (08:44→20:34)
[2019-05-04] MEDS: predniSONE 20 MG TAB PO (08:44)
[2019-05-04] MEDS: LISINOPRIL 20 MG TAB PO (08:45)
[2019-05-04] MEDS: MAGNESIUM OXIDE 400 MG TAB PO (08:45)
[2019-05-04] MEDS: FERROUS SULFATE (EC) 325 MG TAB PO ×3 (08:45→20:34)
[2019-05-04] MEDS: FAMOTIDINE 20 MG TAB PO ×2 (08:46→20:35)
[2019-05-04] MEDS: AMLODIPINE 5 MG TAB PO (08:46)
[2019-05-04] MEDS: ENOXAPARIN 40 MG/0.4 ML SYG SC (08:50)
[2019-05-04] MEDS: INSULIN ASPART [NOVOLOG] 3 ML PEN SC ×4 (08:50→20:43)
[2019-05-04] MEDS: MAGNESIUM HYDROXIDE 30ML CUP PO (09:00)
[2019-05-04] MEDS: LUBIPROSTONE 24 MCG CAP PO ×2 (09:00→20:34)
[2019-05-04] MEDS: FENOFIBRATE 48 MG TAB PO (10:21)
[2019-05-04] MEDS: VANCOMYCIN 500 MG (PMX) 100 ML IVPB (12:39)
[2019-05-04] MEDS: METOCLOPRAMIDE 10 MG INJ IV ×2 (12:53→18:51)
[2019-05-04] MEDS: ALTEPLASE (CATHFLO) 2 MG INJ CATHETER (14:04)
[2019-05-04] MEDS: ONDANSETRON INJ 8 MG in SOD CHLORIDE 0.9% 50 ML IV ×2 (14:50→20:46)
[2019-05-04] MEDS ORDERED: ONDANSETRON 4 MG INJ IV (17:30)
[2019-05-04] MEDS: ATORVASTATIN 20 MG TAB PO (20:34)
[2019-05-05] MEDS: VANCOMYCIN 500 MG (PMX) 100 ML IVPB ×2 (00:24→11:07)
[2019-05-05] MEDS: ACCU-CHEK XX (02:00)
[2019-05-05] MEDS: HYDROmorphONE 2 MG/ML SYG IV ×5 (02:59→19:49)
[2019-05-05 06:07] LABS: CREATININE 0.67 mg/dl (0.44-1.00)
[2019-05-05 06:07] LABS: BLOOD UREA NITROGEN 25 mg/dl (7-20)
[2019-05-05] MEDS: PANTOPRAZOLE (EC) 40 MG TAB PO ×2 (06:54→17:59)
[2019-05-05] MEDS: INSULIN ASPART [NOVOLOG] 3 ML PEN SC ×4 (07:50→22:44)
[2019-05-05] MEDS: LUBIPROSTONE 24 MCG CAP PO ×2 (08:46→22:45)
[2019-05-05] MEDS: MAGNESIUM HYDROXIDE 30ML CUP PO (08:46)
[2019-05-05] MEDS: METOCLOPRAMIDE 10 MG INJ IV (08:47)
[2019-05-05] MEDS: FAMOTIDINE 20 MG TAB PO ×2 (08:58→22:45)
[2019-05-05] MEDS: oxyCODONE (CR) 20 MG TAB [oxyCONTIN] PO ×3 (08:59→22:45)
[2019-05-05] MEDS: LINAGLIPTIN 5 MG TABLET PO (09:00)
[2019-05-05] MEDS: BETHANECHOL 25 MG TAB PO (09:00)
[2019-05-05] MEDS: MAGNESIUM OXIDE 400 MG TAB PO (09:00)
[2019-05-05] MEDS: CLOPIDOGREL 75 MG TAB PO (09:01)
[2019-05-05] MEDS: ASPIRIN (EC) 81 MG TAB PO (09:01)
[2019-05-05] MEDS: FERROUS SULFATE (EC) 325 MG TAB PO ×3 (09:02→22:45)
[2019-05-05] MEDS: AMLODIPINE 5 MG TAB PO (09:02)
[2019-05-05] MEDS: predniSONE 20 MG TAB PO (09:03)
[2019-05-05] MEDS: LISINOPRIL 20 MG TAB PO (09:03)
[2019-05-05] MEDS: FENOFIBRATE 48 MG TAB PO (09:05)
[2019-05-05] MEDS: ENOXAPARIN 40 MG/0.4 ML SYG SC (09:10)
[2019-05-05] MEDS: FOSFOMYCIN 3 GM PACKET PO (15:39)
[2019-05-05] MEDS: ONDANSETRON INJ 8 MG in SOD CHLORIDE 0.9% 50 ML IV (15:39)
[2019-05-05] MEDS: NYSTATIN 30 GM POWDER BTL TOP (16:54)
[2019-05-05] MEDS: PHENAZOPYRIDINE 200 MG TAB PO (22:45)
[2019-05-05] MEDS: ATORVASTATIN 20 MG TAB PO (22:46)
[2019-05-06] MEDS: HYDROmorphONE 2 MG/ML SYG IV ×6 (00:08→20:55)
[2019-05-06] MEDS: VANCOMYCIN 500 MG (PMX) 100 ML IVPB ×2 (00:08→12:23)
[2019-05-06] MEDS: ONDANSETRON INJ 8 MG in SOD CHLORIDE 0.9% 50 ML IV ×2 (01:48→16:26)
[2019-05-06] MEDS: ACCU-CHEK XX ×2 (02:00→22:16)
[2019-05-06] MEDS: PANTOPRAZOLE (EC) 40 MG TAB PO ×2 (06:56→18:52)
[2019-05-06] MEDS: INSULIN ASPART [NOVOLOG] 3 ML PEN SC ×4 (07:50→21:00)
[2019-05-06] MEDS: ENOXAPARIN 40 MG/0.4 ML SYG SC (08:34)
[2019-05-06] MEDS: LINAGLIPTIN 5 MG TABLET PO (08:35)
[2019-05-06] MEDS: FERROUS SULFATE (EC) 325 MG TAB PO ×3 (08:36→21:01)
[2019-05-06] MEDS: ASPIRIN (EC) 81 MG TAB PO (08:38)
[2019-05-06] MEDS: PHENAZOPYRIDINE 200 MG TAB PO ×3 (08:39→21:00)
[2019-05-06] MEDS: AMLODIPINE 5 MG TAB PO (08:39)
[2019-05-06] MEDS: predniSONE 20 MG TAB PO (08:39)
[2019-05-06] MEDS: FAMOTIDINE 20 MG TAB PO ×2 (08:39→21:01)
[2019-05-06] MEDS: oxyCODONE (CR) 20 MG TAB [oxyCONTIN] PO ×3 (08:40→22:23)
[2019-05-06] MEDS: MAGNESIUM OXIDE 400 MG TAB PO (08:40)
[2019-05-06] MEDS: BETHANECHOL 25 MG TAB PO (08:40)
[2019-05-06] MEDS: LISINOPRIL 20 MG TAB PO (08:41)
[2019-05-06] MEDS: CLOPIDOGREL 75 MG TAB PO (08:41)
[2019-05-06] MEDS: FENOFIBRATE 48 MG TAB PO (08:42)
[2019-05-06] MEDS: MAGNESIUM HYDROXIDE 30ML CUP PO (08:43)
[2019-05-06] MEDS: LUBIPROSTONE 24 MCG CAP PO ×2 (08:43→21:00)
[2019-05-06] MEDS: ATORVASTATIN 20 MG TAB PO (21:03)
[2019-05-07] MEDS: VANCOMYCIN 500 MG (PMX) 100 ML IVPB ×2 (00:15→14:48)
[2019-05-07] MEDS: HYDROmorphONE 2 MG/ML SYG IV ×6 (01:03→23:22)
[2019-05-07] MEDS: ONDANSETRON INJ 8 MG in SOD CHLORIDE 0.9% 50 ML IV (01:18)
[2019-05-07] MEDS: ALTEPLASE (CATHFLO) 2 MG INJ CATHETER ×2 (02:10→02:54)
[2019-05-07] MEDS: PANTOPRAZOLE (EC) 40 MG TAB PO ×2 (05:08→18:04)
[2019-05-07 05:39] LABS: ADD MAN DIFF? NO
[2019-05-07 06:08] LABS: ANION GAP 5 (5-13); BLOOD UREA NITROGEN 24 mg/dl (7-20); CALCIUM 8.5 mg/dl (8.4-10.2); CARBON DIOXIDE 28 mmol/L (21-31); CHLORIDE 107 mmol/L (97-110); CREATININE 0.64 mg/dl (0.44-1.00); Estimated GFR > 60 mL/min (>60); GLUCOSE 147 mg/dl (70-220); MAGNESIUM 1.8 mg/dl (1.7-2.5); PHOSPHORUS 3.3 mg/dl (2.5-4.9); POTASSIUM 4.4 mmol/L (3.5-5.1); SODIUM 140 mmol/L (135-144)
[2019-05-07 07:11] LABS: ABNORMAL IP MESSAGE 1; BASOPHILS % 0.3 % (0.0-2.0); EOSINOPHILS # 0.1 10^3/ul (0.0-0.5); EOSINOPHILS % 1.9 % (0.0-7.0); HEMATOCRIT 28.9 % (37.0-47.0); HEMOGLOBIN 8.3 g/dl (12.0-16.0); LYMPHOCYTES # 0.9 10^3/ul (0.8-2.9); LYMPHOCYTES % 13.4 % (15.0-51.0); MEAN CORPUSCULAR HEMOGLOBIN 26.8 pg (29.0-33.0); MEAN CORPUSCULAR HGB CONC 28.7 g/dl (32.0-37.0); MEAN CORPUSCULAR VOLUME 93.2 fl (82.0-101.0); MEAN PLATELET VOLUME 9.1 fl (7.4-10.4); MONOCYTE # 0.6 10^3/ul (0.3-0.9); MONOCYTES % 8.4 % (0.0-11.0); NEUTROPHIL # 5.3 10^3/ul (1.6-7.5); NEUTROPHILS % 75.6 % (39.0-77.0); PLATELET COUNT 377 10^3/UL (140-415); RED CELL DISTRIBUTION WIDTH 17.4 % (11.5-14.5)
[2019-05-07 07:30] LABS: POSITIVE DIFF @See below
[2019-05-07] MEDS: MAGNESIUM HYDROXIDE 30ML CUP PO (08:35)
[2019-05-07] MEDS: ASPIRIN (EC) 81 MG TAB PO (08:36)
[2019-05-07] MEDS: FERROUS SULFATE (EC) 325 MG TAB PO ×3 (08:36→21:38)
[2019-05-07] MEDS: FAMOTIDINE 20 MG TAB PO ×2 (08:36→21:38)
[2019-05-07] MEDS: PHENAZOPYRIDINE 200 MG TAB PO ×2 (08:36→14:48)
[2019-05-07] MEDS: LUBIPROSTONE 24 MCG CAP PO ×2 (08:36→21:38)
[2019-05-07] MEDS: FENOFIBRATE 48 MG TAB PO (08:37)
[2019-05-07] MEDS: LISINOPRIL 20 MG TAB PO (08:37)
[2019-05-07] MEDS: MAGNESIUM OXIDE 400 MG TAB PO (08:37)
[2019-05-07] MEDS: AMLODIPINE 5 MG TAB PO (08:37)
[2019-05-07] MEDS: BETHANECHOL 25 MG TAB PO (08:37)
[2019-05-07] MEDS: predniSONE 20 MG TAB PO (08:38)
[2019-05-07] MEDS: LINAGLIPTIN 5 MG TABLET PO (08:38)
[2019-05-07] MEDS: CLOPIDOGREL 75 MG TAB PO (08:43)
[2019-05-07] MEDS: oxyCODONE (CR) 20 MG TAB [oxyCONTIN] PO ×3 (08:43→21:39)
[2019-05-07] MEDS: ENOXAPARIN 40 MG/0.4 ML SYG SC (08:45)
[2019-05-07] MEDS: INSULIN ASPART [NOVOLOG] 3 ML PEN SC ×4 (08:48→21:00)
[2019-05-07] MEDS: METOCLOPRAMIDE 10 MG INJ IV (14:46)
[2019-05-07] MEDS: MAGNESIUM SULFATE 2 GM/50 ML 50 ML IVPB (21:30)
[2019-05-07] MEDS: ATORVASTATIN 20 MG TAB PO (21:38)
[2019-05-08] MEDS: VANCOMYCIN 500 MG (PMX) 100 ML IVPB ×2 (01:15→12:10)
[2019-05-08] MEDS: ACCU-CHEK XX (01:18)
[2019-05-08] MEDS: HYDROmorphONE 2 MG/ML SYG IV ×6 (03:33→21:40)
[2019-05-08 05:17] LABS: RETICULOCYTE COUNT # 0.054 X10^6 (0.020-0.110); RETICULOCYTE COUNT % 1.8 % (0.5-1.5)
[2019-05-08 05:17] LABS: RETICULOCYTE RBC 2.94
[2019-05-08 05:49] LABS: IRON 53 ug/dl (35-150)
[2019-05-08 05:57] LABS: % IRON SATURATION 24 % SAT (22-52); TOTAL IRON BINDING CAPACITY 223 ug/dl (241-421)
[2019-05-08 06:47] LABS: FOLATE 9.4 ng/ml (2.8-20.0)
[2019-05-08] MEDS: PANTOPRAZOLE (EC) 40 MG TAB PO (06:51)
[2019-05-08] MEDS: MAGNESIUM HYDROXIDE 30ML CUP PO (09:00)
[2019-05-08] MEDS: LINAGLIPTIN 5 MG TABLET PO (09:21)
[2019-05-08] MEDS: FAMOTIDINE 20 MG TAB PO (09:21)
[2019-05-08] MEDS: CLOPIDOGREL 75 MG TAB PO (09:21)
[2019-05-08] MEDS: LUBIPROSTONE 24 MCG CAP PO ×2 (09:21→21:00)
[2019-05-08] MEDS: MAGNESIUM OXIDE 400 MG TAB PO (09:22)
[2019-05-08] MEDS: LISINOPRIL 20 MG TAB PO (09:22)
[2019-05-08] MEDS: AMLODIPINE 5 MG TAB PO (09:22)
[2019-05-08] MEDS: FERROUS SULFATE (EC) 325 MG TAB PO ×3 (09:22→21:00)
[2019-05-08] MEDS: FENOFIBRATE 48 MG TAB PO (09:22)
[2019-05-08] MEDS: predniSONE 20 MG TAB PO (09:22)
[2019-05-08] MEDS: BETHANECHOL 25 MG TAB PO (09:22)
[2019-05-08] MEDS: ASPIRIN (EC) 81 MG TAB PO (09:22)
[2019-05-08] MEDS: INSULIN ASPART [NOVOLOG] 3 ML PEN SC (09:24)
[2019-05-08] MEDS: ENOXAPARIN 40 MG/0.4 ML SYG SC (09:25)
[2019-05-08] MEDS: oxyCODONE (CR) 20 MG TAB [oxyCONTIN] PO ×3 (09:27→21:00)
[2019-05-08] MEDS: METOCLOPRAMIDE 10 MG INJ IV (12:23)
[2019-05-08] MEDS: D5W-0.45 NACL + KCL 20 MEQ 1,000 ML IV (14:15)
[2019-05-08] MEDS: PANTOPRAZOLE 40 MG INJ IV (18:34)
[2019-05-08] MEDS: Insulin NOVOLOG SS MILD Algorithm (NPO/TPN/ENTERAL FEEDS) SC (18:36)
[2019-05-08] MEDS: ATORVASTATIN 20 MG TAB PO (21:00)
[2019-05-08] MEDS: METHYLNALTREXONE 12 MG/0.6 ML VIAL SC (21:58)
[2019-05-08] MEDS: INSULIN GLARGINE [LANTus] (100 UNITS/ML) SYG SC (21:58)
[2019-05-08] MEDS: FAMOTIDINE 20 MG INJ IV (21:58)
[2019-05-09] MEDS: HYDROmorphONE 2 MG/ML SYG IV ×8 (00:46→22:05)
[2019-05-09] MEDS: VANCOMYCIN 500 MG (PMX) 100 ML IVPB ×2 (00:50→12:38)
[2019-05-09] MEDS: Insulin NOVOLOG SS MILD Algorithm (NPO/TPN/ENTERAL FEEDS) SC ×2 (00:58→06:36)
[2019-05-09] MEDS: ACCU-CHEK XX (02:00)
[2019-05-09] MEDS: D5W-0.45 NACL + KCL 20 MEQ 1,000 ML IV ×2 (03:20→04:41)
[2019-05-09] MEDS: PANTOPRAZOLE 40 MG INJ IV ×2 (04:42→16:18)
[2019-05-09 05:52] LABS: CREATININE 0.52 mg/dl (0.44-1.00)
[2019-05-09 05:52] LABS: BLOOD UREA NITROGEN 20 mg/dl (7-20)
[2019-05-09] MEDS: AMLODIPINE 5 MG TAB PO (08:50)
[2019-05-09] MEDS: LISINOPRIL 20 MG TAB PO (08:51)
[2019-05-09] MEDS: CLOPIDOGREL 75 MG TAB PO (08:51)
[2019-05-09] MEDS: oxyCODONE (CR) 20 MG TAB [oxyCONTIN] PO ×2 (08:51→12:36)
[2019-05-09] MEDS: BETHANECHOL 25 MG TAB PO (08:52)
[2019-05-09] MEDS: predniSONE 20 MG TAB PO (08:52)
[2019-05-09] MEDS: MAGNESIUM OXIDE 400 MG TAB PO (08:52)
[2019-05-09] MEDS: FENOFIBRATE 48 MG TAB PO (08:52)
[2019-05-09] MEDS: ASPIRIN (EC) 81 MG TAB PO (08:53)
[2019-05-09] MEDS: FAMOTIDINE 20 MG TAB PO (08:53)
[2019-05-09] MEDS: LINAGLIPTIN 5 MG TABLET PO (08:53)
[2019-05-09] MEDS: FERROUS SULFATE (EC) 325 MG TAB PO ×3 (08:53→21:00)
[2019-05-09] MEDS: LUBIPROSTONE 24 MCG CAP PO ×2 (08:54→21:08)
[2019-05-09] MEDS: ENOXAPARIN 40 MG/0.4 ML SYG SC (08:59)
[2019-05-09] MEDS: MAGNESIUM HYDROXIDE 30ML CUP PO (09:00)
[2019-05-09] MEDS: INSULIN ASPART [NOVOLOG] 3 ML PEN SC ×3 (12:44→21:12)
[2019-05-09] MEDS: METOCLOPRAMIDE 10 MG INJ IV (16:18)
[2019-05-09] MEDS: ATORVASTATIN 20 MG TAB PO (21:08)
[2019-05-09] MEDS: INSULIN GLARGINE [LANTus] (100 UNITS/ML) SYG SC (21:12)
[2019-05-10] MEDS: VANCOMYCIN 500 MG (PMX) 100 ML IVPB ×2 (00:33→12:45)
[2019-05-10] MEDS: HYDROmorphONE 2 MG/ML SYG IV ×8 (00:52→22:24)
[2019-05-10] MEDS: METOCLOPRAMIDE 10 MG INJ IV ×2 (00:52→10:23)
[2019-05-10] MEDS: ACCU-CHEK XX (04:02)
[2019-05-10] MEDS: D5W-0.45 NACL + KCL 20 MEQ 1,000 ML IV (06:00)
[2019-05-10] MEDS: PANTOPRAZOLE 40 MG INJ IV (06:54)
[2019-05-10 08:05] LABS: ADD MAN DIFF? NO
[2019-05-10] MEDS: IOHEXOL 300MG/ML 150 ML BTL (08:09)
[2019-05-10 08:10] LABS: WHITE BLOOD COUNT 9.5 10^3/ul (4.8-10.8)
[2019-05-10 08:10] LABS: BASOPHILS % 0.2 % (0.0-2.0); EOSINOPHILS # 0.1 10^3/ul (0.0-0.5); EOSINOPHILS % 0.6 % (0.0-7.0); HEMATOCRIT 28.3 % (37.0-47.0); HEMOGLOBIN 8.3 g/dl (12.0-16.0); LYMPHOCYTES % 10.4 % (15.0-51.0); MEAN CORPUSCULAR HEMOGLOBIN 27.9 pg (29.0-33.0); MEAN CORPUSCULAR HGB CONC 29.3 g/dl (32.0-37.0); MEAN CORPUSCULAR VOLUME 95.3 fl (82.0-101.0); MEAN PLATELET VOLUME 9.1 fl (7.4-10.4); MONOCYTE # 0.8 10^3/ul (0.3-0.9); NEUTROPHIL # 7.6 10^3/ul (1.6-7.5); NEUTROPHILS % 80.4 % (39.0-77.0); PLATELET COUNT 381 10^3/UL (140-415); RED BLOOD COUNT 2.97 10^6/ul (4.20-5.40); RED CELL DISTRIBUTION WIDTH 17.4 % (11.5-14.5)
[2019-05-10 08:41] LABS: ANION GAP 4 (5-13); BLOOD UREA NITROGEN 22 mg/dl (7-20); CALCIUM 8.8 mg/dl (8.4-10.2); CARBON DIOXIDE 26 mmol/L (21-31); CHLORIDE 107 mmol/L (97-110); CREATININE 0.54 mg/dl (0.44-1.00); Estimated GFR > 60 mL/min (>60); GLUCOSE 141 mg/dl (70-220); MAGNESIUM 1.8 mg/dl (1.7-2.5); PHOSPHORUS 3.4 mg/dl (2.5-4.9); SODIUM 137 mmol/L (135-144)
[2019-05-10] MEDS: POLYETHYLENE GLYCOL 17 GM PACKET PO (09:00)
[2019-05-10] MEDS: MAGNESIUM HYDROXIDE 30ML CUP PO (09:00)
[2019-05-10] MEDS: INSULIN ASPART [NOVOLOG] 3 ML PEN SC ×4 (09:02→21:31)
[2019-05-10] MEDS: FERROUS SULFATE (EC) 325 MG TAB PO ×3 (09:03→21:00)
[2019-05-10] MEDS: FENOFIBRATE 48 MG TAB PO (09:03)
[2019-05-10] MEDS: predniSONE 20 MG TAB PO (09:04)
[2019-05-10] MEDS: MAGNESIUM OXIDE 400 MG TAB PO (09:04)
[2019-05-10] MEDS: ASPIRIN (EC) 81 MG TAB PO (09:04)
[2019-05-10] MEDS: CLOPIDOGREL 75 MG TAB PO (09:04)
[2019-05-10] MEDS: BETHANECHOL 25 MG TAB PO (09:04)
[2019-05-10] MEDS: LUBIPROSTONE 24 MCG CAP PO ×2 (09:04→20:44)
[2019-05-10] MEDS: LINAGLIPTIN 5 MG TABLET PO (09:04)
[2019-05-10] MEDS: LISINOPRIL 20 MG TAB PO (09:05)
[2019-05-10] MEDS: AMLODIPINE 5 MG TAB PO (09:05)
[2019-05-10] MEDS: ENOXAPARIN 40 MG/0.4 ML SYG SC (09:07)
[2019-05-10] MEDS: oxyCODONE (CR) 20 MG TAB [oxyCONTIN] PO (09:13)
[2019-05-10] MEDS: PANTOPRAZOLE (EC) 40 MG TAB PO (18:18)
[2019-05-10] MEDS: ATORVASTATIN 20 MG TAB PO (20:44)
[2019-05-10] MEDS: INSULIN GLARGINE [LANTus] (100 UNITS/ML) SYG SC (21:33)
[2019-05-10] MEDS: METHYLNALTREXONE 12 MG/0.6 ML VIAL SC (21:49)
[2019-05-11] MEDS: HYDROmorphONE 2 MG/ML SYG IV ×8 (01:24→23:10)
[2019-05-11] MEDS: VANCOMYCIN 500 MG (PMX) 100 ML IVPB ×3 (01:48→23:33)
[2019-05-11] MEDS: METOCLOPRAMIDE 10 MG INJ IV (01:48)
[2019-05-11] MEDS: ACCU-CHEK XX (02:00)
[2019-05-11] MEDS: PANTOPRAZOLE (EC) 40 MG TAB PO ×2 (06:12→17:52)
[2019-05-11] MEDS: MAGNESIUM HYDROXIDE 30ML CUP PO (09:00)
[2019-05-11] MEDS: POLYETHYLENE GLYCOL 17 GM PACKET PO (09:00)
[2019-05-11] MEDS: FERROUS SULFATE (EC) 325 MG TAB PO ×3 (09:00→20:31)
[2019-05-11] MEDS: INSULIN ASPART [NOVOLOG] 3 ML PEN SC ×4 (09:30→20:34)
[2019-05-11] MEDS: LISINOPRIL 20 MG TAB PO (09:39)
[2019-05-11] MEDS: LUBIPROSTONE 24 MCG CAP PO ×2 (09:40→20:31)
[2019-05-11] MEDS: CLOPIDOGREL 75 MG TAB PO (09:41)
[2019-05-11] MEDS: AMLODIPINE 5 MG TAB PO (09:41)
[2019-05-11] MEDS: BETHANECHOL 25 MG TAB PO (09:41)
[2019-05-11] MEDS: ASPIRIN (EC) 81 MG TAB PO (09:41)
[2019-05-11] MEDS: predniSONE 20 MG TAB PO (09:41)
[2019-05-11] MEDS: LINAGLIPTIN 5 MG TABLET PO (09:42)
[2019-05-11] MEDS: MAGNESIUM OXIDE 400 MG TAB PO (09:42)
[2019-05-11] MEDS: FENOFIBRATE 48 MG TAB PO (09:43)
[2019-05-11] MEDS: oxyCODONE (CR) 20 MG TAB [oxyCONTIN] PO (09:43)
[2019-05-11] MEDS: ENOXAPARIN 40 MG/0.4 ML SYG SC (09:45)
[2019-05-11 12:50] LABS: VANCOMYCIN,TROUGH 17.3 ug/ml (10.0-20.0)
[2019-05-11] MEDS: ONDANSETRON INJ 8 MG in SOD CHLORIDE 0.9% 50 ML IV ×2 (15:11→23:41)
[2019-05-11] MEDS: ATORVASTATIN 20 MG TAB PO (20:31)
[2019-05-11] MEDS: INSULIN GLARGINE [LANTus] (100 UNITS/ML) SYG SC (20:36)
[2019-05-12] MEDS: ACCU-CHEK XX (02:00)
[2019-05-12] MEDS: HYDROmorphONE 2 MG/ML SYG IV ×7 (02:12→21:01)
[2019-05-12] MEDS: PANTOPRAZOLE (EC) 40 MG TAB PO ×2 (06:22→17:59)
[2019-05-12] MEDS: POLYETHYLENE GLYCOL 17 GM PACKET PO (08:30)
[2019-05-12] MEDS: LUBIPROSTONE 24 MCG CAP PO ×2 (08:30→21:03)
[2019-05-12] MEDS: BETHANECHOL 25 MG TAB PO (08:30)
[2019-05-12] MEDS: MAGNESIUM HYDROXIDE 30ML CUP PO (08:30)
[2019-05-12] MEDS: LINAGLIPTIN 5 MG TABLET PO (08:31)
[2019-05-12] MEDS: AMLODIPINE 5 MG TAB PO (08:31)
[2019-05-12] MEDS: ASPIRIN (EC) 81 MG TAB PO (08:32)
[2019-05-12] MEDS: CLOPIDOGREL 75 MG TAB PO (08:32)
[2019-05-12] MEDS: predniSONE 20 MG TAB PO (08:32)
[2019-05-12] MEDS: oxyCODONE (CR) 20 MG TAB [oxyCONTIN] PO (08:33)
[2019-05-12] MEDS: MAGNESIUM OXIDE 400 MG TAB PO ×2 (08:33→09:00)
[2019-05-12] MEDS: FERROUS SULFATE (EC) 325 MG TAB PO ×3 (08:34→21:04)
[2019-05-12] MEDS: LISINOPRIL 20 MG TAB PO (08:34)
[2019-05-12] MEDS: FENOFIBRATE 48 MG TAB PO (08:37)
[2019-05-12] MEDS: ENOXAPARIN 40 MG/0.4 ML SYG SC (08:54)
[2019-05-12] MEDS: INSULIN ASPART [NOVOLOG] 3 ML PEN SC ×4 (08:55→21:10)
[2019-05-12] MEDS: VANCOMYCIN 500 MG (PMX) 100 ML IVPB (13:21)
[2019-05-12] MEDS: METHYLNALTREXONE 12 MG/0.6 ML VIAL SC (21:00)
[2019-05-12] MEDS: ATORVASTATIN 20 MG TAB PO (21:04)
[2019-05-12] MEDS: INSULIN GLARGINE [LANTus] (100 UNITS/ML) SYG SC (21:10)
[2019-05-13] MEDS: HYDROmorphONE 2 MG/ML SYG IV ×8 (00:05→22:27)
[2019-05-13] MEDS: VANCOMYCIN 500 MG (PMX) 100 ML IVPB ×2 (00:08→12:40)
[2019-05-13] MEDS: ONDANSETRON INJ 8 MG in SOD CHLORIDE 0.9% 50 ML IV (00:08)
[2019-05-13] MEDS: ACCU-CHEK XX (02:00)
[2019-05-13 06:22] LABS: BLOOD UREA NITROGEN 27 mg/dl (7-20)
[2019-05-13 06:22] LABS: CREATININE 0.48 mg/dl (0.44-1.00)
[2019-05-13] MEDS: PANTOPRAZOLE (EC) 40 MG TAB PO ×2 (07:01→17:41)
[2019-05-13] MEDS: INSULIN ASPART [NOVOLOG] 3 ML PEN SC ×4 (07:50→20:53)
[2019-05-13] MEDS: AMLODIPINE 5 MG TAB PO (08:40)
[2019-05-13] MEDS: LUBIPROSTONE 24 MCG CAP PO ×2 (08:40→20:48)
[2019-05-13] MEDS: oxyCODONE (CR) 20 MG TAB [oxyCONTIN] PO (08:41)
[2019-05-13] MEDS: FENOFIBRATE 48 MG TAB PO (08:41)
[2019-05-13] MEDS: ASPIRIN (EC) 81 MG TAB PO (08:41)
[2019-05-13] MEDS: FERROUS SULFATE (EC) 325 MG TAB PO ×4 (08:41→20:56)
[2019-05-13] MEDS: LISINOPRIL 20 MG TAB PO (08:42)
[2019-05-13] MEDS: BETHANECHOL 25 MG TAB PO (08:43)
[2019-05-13] MEDS: predniSONE 20 MG TAB PO (08:43)
[2019-05-13] MEDS: MAGNESIUM OXIDE 400 MG TAB PO (08:43)
[2019-05-13] MEDS: LINAGLIPTIN 5 MG TABLET PO (08:43)
[2019-05-13] MEDS: CLOPIDOGREL 75 MG TAB PO (08:43)
[2019-05-13] MEDS: MAGNESIUM HYDROXIDE 30ML CUP PO ×2 (08:44→09:00)
[2019-05-13] MEDS: POLYETHYLENE GLYCOL 17 GM PACKET PO (08:44)
[2019-05-13] MEDS: ENOXAPARIN 40 MG/0.4 ML SYG SC (08:45)
[2019-05-13] MEDS: ATORVASTATIN 20 MG TAB PO (20:48)
[2019-05-13] MEDS: INSULIN GLARGINE [LANTus] (100 UNITS/ML) SYG SC (20:54)
[2019-05-14] MEDS: ONDANSETRON INJ 8 MG in SOD CHLORIDE 0.9% 50 ML IV ×2 (00:38→20:57)
[2019-05-14] MEDS: VANCOMYCIN 500 MG (PMX) 100 ML IVPB ×2 (00:40→20:54)
[2019-05-14] MEDS: HYDROmorphONE 2 MG/ML SYG IV ×5 (01:43→21:32)
[2019-05-14] MEDS: ACCU-CHEK XX (01:49)
[2019-05-14] MEDS: PANTOPRAZOLE (EC) 40 MG TAB PO ×2 (05:18→17:38)
[2019-05-14] MEDS: INSULIN ASPART [NOVOLOG] 3 ML PEN SC ×4 (07:50→21:07)
[2019-05-14] MEDS: FERROUS SULFATE (EC) 325 MG TAB PO ×3 (08:27→21:01)
[2019-05-14] MEDS: MAGNESIUM OXIDE 400 MG TAB PO (08:27)
[2019-05-14] MEDS: LUBIPROSTONE 24 MCG CAP PO ×2 (08:27→21:01)
[2019-05-14] MEDS: CLOPIDOGREL 75 MG TAB PO (08:29)
[2019-05-14] MEDS: ASPIRIN (EC) 81 MG TAB PO (08:29)
[2019-05-14] MEDS: LISINOPRIL 20 MG TAB PO (08:29)
[2019-05-14] MEDS: BETHANECHOL 25 MG TAB PO (08:29)
[2019-05-14] MEDS: AMLODIPINE 5 MG TAB PO (08:30)
[2019-05-14] MEDS: FENOFIBRATE 48 MG TAB PO (08:30)
[2019-05-14] MEDS: LINAGLIPTIN 5 MG TABLET PO (08:30)
[2019-05-14] MEDS: MAGNESIUM HYDROXIDE 30ML CUP PO (08:31)
[2019-05-14] MEDS: POLYETHYLENE GLYCOL 17 GM PACKET PO (08:31)
[2019-05-14] MEDS: oxyCODONE (CR) 20 MG TAB [oxyCONTIN] PO (08:38)
[2019-05-14] MEDS: predniSONE 10 MG TAB PO (08:38)
[2019-05-14] MEDS: ENOXAPARIN 40 MG/0.4 ML SYG SC (08:40)
[2019-05-14] MEDS: ALTEPLASE (CATHFLO) 2 MG INJ CATHETER (09:58)
[2019-05-14] MEDS: METHYLNALTREXONE 12 MG/0.6 ML VIAL SC (21:00)
[2019-05-14] MEDS: BISACODYL 10 MG SUPP PR (21:01)
[2019-05-14] MEDS: ATORVASTATIN 20 MG TAB PO (21:01)
[2019-05-14] MEDS: INSULIN GLARGINE [LANTus] (100 UNITS/ML) SYG SC (21:08)
[2019-05-15] MEDS: HYDROmorphONE 2 MG/ML SYG IV ×4 (01:05→10:08)
[2019-05-15] MEDS: ACCU-CHEK XX (02:00)
[2019-05-15 05:06] LABS: ADD MAN DIFF? NO
[2019-05-15 05:09] LABS: BASOPHIL # 0.1 10^3/ul (0.0-0.1); BASOPHILS % 0.4 % (0.0-2.0); EOSINOPHILS # 0.2 10^3/ul (0.0-0.5); EOSINOPHILS % 1.7 % (0.0-7.0); HEMATOCRIT 28.4 % (37.0-47.0); HEMOGLOBIN 8.4 g/dl (12.0-16.0); LYMPHOCYTES # 1.1 10^3/ul (0.8-2.9); LYMPHOCYTES % 9.9 % (15.0-51.0); MEAN CORPUSCULAR HEMOGLOBIN 27.9 pg (29.0-33.0); MEAN CORPUSCULAR HGB CONC 29.6 g/dl (32.0-37.0); MEAN CORPUSCULAR VOLUME 94.4 fl (82.0-101.0); MEAN PLATELET VOLUME 9.2 fl (7.4-10.4); MONOCYTES % 8.6 % (0.0-11.0); NEUTROPHILS % 78.8 % (39.0-77.0); PLATELET COUNT 336 10^3/UL (140-415); RED BLOOD COUNT 3.01 10^6/ul (4.20-5.40); RED CELL DISTRIBUTION WIDTH 17.7 % (11.5-14.5)
[2019-05-15 05:09] LABS: WHITE BLOOD COUNT 11.5 10^3/ul (4.8-10.8)
[2019-05-15 05:41] LABS: ANION GAP 4 (5-13); BLOOD UREA NITROGEN 37 mg/dl (7-20); CALCIUM 8.7 mg/dl (8.4-10.2); CARBON DIOXIDE 24 mmol/L (21-31); CHLORIDE 110 mmol/L (97-110); CREATININE 0.58 mg/dl (0.44-1.00); Estimated GFR > 60 mL/min (>60); GLUCOSE 109 mg/dl (70-220); MAGNESIUM 1.7 mg/dl (1.7-2.5); POTASSIUM 4.6 mmol/L (3.5-5.1); SODIUM 138 mmol/L (135-144)
[2019-05-15] MEDS: PANTOPRAZOLE (EC) 40 MG TAB PO ×2 (06:55→18:31)
[2019-05-15] MEDS: INSULIN ASPART [NOVOLOG] 3 ML PEN SC ×4 (07:50→22:18)
[2019-05-15] MEDS: POLYETHYLENE GLYCOL 17 GM PACKET PO (09:00)
[2019-05-15] MEDS: FERROUS SULFATE (EC) 325 MG TAB PO ×3 (09:00→22:11)
[2019-05-15] MEDS: MAGNESIUM HYDROXIDE 30ML CUP PO (09:00)
[2019-05-15] MEDS: LISINOPRIL 20 MG TAB PO (09:09)
[2019-05-15] MEDS: CLOPIDOGREL 75 MG TAB PO (09:11)
[2019-05-15] MEDS: predniSONE 10 MG TAB PO (09:11)
[2019-05-15] MEDS: BETHANECHOL 25 MG TAB PO (09:11)
[2019-05-15] MEDS: ASPIRIN (EC) 81 MG TAB PO ×2 (09:11→09:28)
[2019-05-15] MEDS: oxyCODONE (CR) 20 MG TAB [oxyCONTIN] PO (09:11)
[2019-05-15] MEDS: LUBIPROSTONE 24 MCG CAP PO ×2 (09:11→22:10)
[2019-05-15] MEDS: MAGNESIUM OXIDE 400 MG TAB PO (09:11)
[2019-05-15] MEDS: FENOFIBRATE 48 MG TAB PO (09:12)
[2019-05-15] MEDS: LINAGLIPTIN 5 MG TABLET PO (09:13)
[2019-05-15] MEDS: ENOXAPARIN 40 MG/0.4 ML SYG SC (09:14)
[2019-05-15] MEDS: AMLODIPINE 5 MG TAB PO (09:23)
[2019-05-15] MEDS: VANCOMYCIN 500 MG (PMX) 100 ML IVPB ×2 (09:29→20:17)
[2019-05-15] MEDS: ONDANSETRON 4 MG INJ IV (09:29)
[2019-05-15] MEDS: HYDROmorphONE 1 MG/ML SYG IV ×3 (13:04→22:07)
[2019-05-15] MEDS: ATORVASTATIN 20 MG TAB PO (22:10)
[2019-05-15] MEDS: INSULIN GLARGINE [LANTus] (100 UNITS/ML) SYG SC (22:16)
[2019-05-16] MEDS: HYDROmorphONE 1 MG/ML SYG IV ×4 (01:30→11:14)
[2019-05-16] MEDS: ACCU-CHEK XX (02:00)
[2019-05-16 05:22] LABS: ADD MAN DIFF? NO
[2019-05-16 05:27] LABS: BASOPHIL # 0.1 10^3/ul (0.0-0.1); BASOPHILS % 0.4 % (0.0-2.0); EOSINOPHILS # 0.3 10^3/ul (0.0-0.5); EOSINOPHILS % 2.3 % (0.0-7.0); HEMATOCRIT 28.6 % (37.0-47.0); HEMOGLOBIN 8.4 g/dl (12.0-16.0); LYMPHOCYTES # 1.2 10^3/ul (0.8-2.9); LYMPHOCYTES % 10.4 % (15.0-51.0); MEAN CORPUSCULAR HEMOGLOBIN 27.9 pg (29.0-33.0); MEAN CORPUSCULAR HGB CONC 29.4 g/dl (32.0-37.0); MEAN PLATELET VOLUME 9.5 fl (7.4-10.4); MONOCYTES % 8.7 % (0.0-11.0); NEUTROPHIL # 8.8 10^3/ul (1.6-7.5); NEUTROPHILS % 77.7 % (39.0-77.0); PLATELET COUNT 351 10^3/UL (140-415); RED BLOOD COUNT 3.01 10^6/ul (4.20-5.40)
[2019-05-16 05:27] LABS: WHITE BLOOD COUNT 11.4 10^3/ul (4.8-10.8)
[2019-05-16 05:56] LABS: ANION GAP 5 (5-13); BLOOD UREA NITROGEN 35 mg/dl (7-20); CALCIUM 8.6 mg/dl (8.4-10.2); CARBON DIOXIDE 22 mmol/L (21-31); CHLORIDE 111 mmol/L (97-110); CREATININE 0.51 mg/dl (0.44-1.00); Estimated GFR > 60 mL/min (>60); GLUCOSE 122 mg/dl (70-220); MAGNESIUM 1.8 mg/dl (1.7-2.5); PHOSPHORUS 3.5 mg/dl (2.5-4.9); POTASSIUM 4.3 mmol/L (3.5-5.1); SODIUM 138 mmol/L (135-144)
[2019-05-16] MEDS: PANTOPRAZOLE (EC) 40 MG TAB PO (06:36)
[2019-05-16 08:34] LABS: VANCOMYCIN,TROUGH 15.2 ug/ml (10.0-20.0)
[2019-05-16] MEDS: LINAGLIPTIN 5 MG TABLET PO (08:57)
[2019-05-16] MEDS: BISACODYL (EC) 5 MG TAB PO (08:57)
[2019-05-16] MEDS: LUBIPROSTONE 24 MCG CAP PO (08:57)
[2019-05-16] MEDS: FERROUS SULFATE (EC) 325 MG TAB PO ×2 (08:58→12:59)
[2019-05-16] MEDS: BETHANECHOL 25 MG TAB PO (08:58)
[2019-05-16] MEDS: ASPIRIN (EC) 81 MG TAB PO (08:58)
[2019-05-16] MEDS: FENOFIBRATE 48 MG TAB PO (08:58)
[2019-05-16] MEDS: CLOPIDOGREL 75 MG TAB PO (08:58)
[2019-05-16] MEDS: LISINOPRIL 20 MG TAB PO (08:59)
[2019-05-16] MEDS: AMLODIPINE 5 MG TAB PO (08:59)
[2019-05-16] MEDS: INSULIN ASPART [NOVOLOG] 3 ML PEN SC ×2 (09:00→12:58)
[2019-05-16] MEDS: MAGNESIUM OXIDE 400 MG TAB PO (09:00)
[2019-05-16] MEDS: MAGNESIUM HYDROXIDE 30ML CUP PO (09:00)
[2019-05-16] MEDS: POLYETHYLENE GLYCOL 17 GM PACKET PO (09:00)
[2019-05-16] MEDS: oxyCODONE (CR) 20 MG TAB [oxyCONTIN] PO (09:00)
[2019-05-16] MEDS: predniSONE 5 MG TAB PO (09:00)
[2019-05-16] MEDS: VANCOMYCIN 500 MG (PMX) 100 ML IVPB (09:01)
[2019-05-16] MEDS: ENOXAPARIN 40 MG/0.4 ML SYG SC (09:17)
[2019-05-16] MEDS: BISACODYL 10 MG SUPP PR (10:34)
[2019-05-16] MEDS: HYDROmorphONE 2 MG/ML SYG IV (15:07)
== END 2019-05-16 16:30 | disposition home health service (06) | DRG 560 ==
LOC: MS1 22:14 → E/R 19:09
PROC: 0S9B3ZX Drainage of Left Hip Joint, Percutaneous Approach, Diagnostic (ICD-10-PCS; principal; 2019-05-03 14:30)
DX: T84.54XA Infection and inflammatory reaction due to internal left knee prosthesis, initial encounter (principal); L03.116 Cellulitis of left lower limb; R64 Cachexia; A04.72 Enterocolitis due to Clostridium difficile, not specified as recurrent; E46 Unspecified protein-calorie malnutrition; K56.7 Ileus, unspecified; K56.609 Unspecified intestinal obstruction, unspecified as to partial versus complete obstruction; T84.093A Other mechanical complication of internal left knee prosthesis, initial encounter; T84.84XA Pain due to internal orthopedic prosthetic devices, implants and grafts, initial encounter; B95.62 Methicillin resistant Staphylococcus aureus infection as the cause of diseases classified elsewhere; M06.9 Rheumatoid arthritis, unspecified; D64.9 Anemia, unspecified; Z68.24 Body mass index [BMI] 24.0-24.9, adult; I73.9 Peripheral vascular disease, unspecified; G89.4 Chronic pain syndrome; I10 Essential (primary) hypertension; E78.5 Hyperlipidemia, unspecified; E87.6 Hypokalemia; Z79.52 Long term (current) use of systemic steroids; Z86.718 Personal history of other venous thrombosis and embolism; R30.0 Dysuria; I49.1 Atrial premature depolarization; I49.3 Ventricular premature depolarization; J44.9 Chronic obstructive pulmonary disease, unspecified; K31.84 Gastroparesis; K57.90 Diverticulosis of intestine, part unspecified, without perforation or abscess without bleeding; E11.43 Type 2 diabetes mellitus with diabetic autonomic (poly)neuropathy; I34.0 Nonrheumatic mitral (valve) insufficiency
CPT/HCPCS: 36415; 36573; 71045; 73530; 73562; 74018; 74176; 74250; 80048; 80053; 80202; 82270; 82565; 82607; 82728; 82746; 82962; 83036; 83540; 83605; 83735; 84100; 84443; 84484; 84520; 85014; 85018; 85025; 85045; 85610; 85651; 85730; 86140; 87040-91; 87045; 87070; 87075; 87102; 93005; 93306; 96374; 96375; 99285-25